=== PATIENT | male | born 1990 | race American Indian/Alaskan Native ===

== ENCOUNTER 2017-06-11 23:52 | Inpatient (IN) | payer MEDICAID ==
[2017-06-11 23:54] VITALS: BMI 22.4
--- NOTE | 2017-06-12 00:46 | C.PDOC ---
History Of Present Illness Patient presents to the ED complaining of swelling and abscess on right arm since 5 days ago s/p injecting heroin. Patient denies chest pain, fever, shortness of breath, nausea, or other complaints. Time Seen by Provider: 06/12/17 00:45 Chief Complaint (Nursing): Abnormal Skin Integrity History Per: Patient History/Exam Limitations: no limitations Onset/Duration Of Symptoms: Days Current Symptoms Are (Timing): Still Present Location Of Injury: Right: Arm Severity: None Past Medical History Reviewed: Historical Data, Nursing Documentation, Vital Signs Vital Signs: Last Vital Signs Temp 103.0 F H 06/12/17 00:15 Pulse 111 H 06/12/17 00:15 Resp 20 06/12/17 00:15 BP 154/72 H 06/12/17 00:15 Pulse Ox 98 06/12/17 02:30 Family History: States: No Known Family Hx - Social History Hx Alcohol Use: No Hx Substance Use: Yes - Immunization History Hx Tetanus Toxoid Vaccination: No Hx Influenza Vaccination: No Hx Pneumococcal Vaccination: No Review Of Systems Constitutional: Negative for: Fever Cardiovascular: Negative for: Chest Pain Respiratory: Negative for: Shortness of Breath Gastrointestinal: Negative for: Nausea, Abdominal Pain Skin: Positive for: Other (swelling and abscess on right forearm) Physical Exam - Physical Exam Appears: No Acute Distress Skin: Warm, Dry Eye(s): bilateral: Normal Inspection Cardiovascular: Rhythm Regular, No Murmur Respiratory: No Rhonchi, No Wheezing Gastrointestinal/Abdominal: No Distention, No Guarding, No Rebound Extremity: Swelling (right forearm), Other (4x6 cm abscess with fluctuance on right arm. track of injection on bilateral arms) Extremity: Bilateral: Normal ROM (fingers, wrist ) Pulses: Left Radial: Normal, Right Radial: Normal Neurological/Psych: Oriented x3, Normal Speech, Normal Sensation ED Course And Treatment - Laboratory Results Result Diagrams: 06/12/17 01:44 06/12/17 01:44 O2 Sat by Pulse Oximetry: 98 (room air) Pulse Ox Interpretation: Normal - Radiology CXR: Interpreted by Me, Viewed By Me CXR Interpretation: No: Infiltrates, Fracture, Pnemothorax - Other Rad foerarm X-Ray: Interpreted by Me, Viewed By Me Interpretation: no fx, large abscess, ? free air Progress Note: Dr goldsmith - decompress now and for the OR in am. residential program worker at bedside Critical Care Time - Critical Care Note Total Time (in mins): 30 Documented critical care: time excludes all time spent performing seperately billable procedures. Medical Decision Making Medical Decision Makin06/12/2017 12:56 Progress Notes: Case discussed with surgical appliances salesperson who is currently seeing patient at bed side of evaluation. Disposition Counseled Patient/Family Regarding: Studies Performed, Diagnosis - Disposition Disposition: HOSPITALIZED Disposition Time: 00:46 Condition: GUARDED - Clinical Impression Clinical Impression: Abscess, Cellulitis, Intravenous drug abuse - Scribe Statement The provider has reviewed the documentation as recorded by the Isie Scribe Attestation: Mary Thorpe MD Scribe Attestation: All medical record entries made by the Scribe were at my direction and personally dictated by me. I have reviewed the chart and agree that the record accurately reflects my personal performance of the history, physical exam, medical decision making, and the department course for this patient. I have also personally directed, reviewed, and agree with the discharge instructions and disposition. Decision To Admit - Pt Status Changed To: Hospital Disposition Of: Inpatient - Admit Certification Admit to Inpatient:: After my assessment, the patient will require hospitalization for at least two midnights. This is because of the severity of symptoms shown, intensity of services needed, and/or the medical risk in this patient being treated as an outpatient. - InPatient: Physician Admission Certification: I certify that this patient requires 2 or more midnights of care for the following reason:: After my assessment, the patient will require hospitalization for at least two midnights. This is because of the severity of symptoms shown, intensity of services needed, and/or the medical risk in this patient being treated as an outpatient. - . Bed Request Type: Regular Admitting Physician: Ady Goldsmith Patient Diagnosis: Abscess, Cellulitis, Intravenous drug abuse
[2017-06-12] MEDS ORDERED: Sodium Chloride 0.9% 1,000 ML IV ONE (00:49)
[2017-06-12 01:38] LABS: URINE BILIRUBIN NEGATIVE (NEGATIVE); URINE BLOOD NEGATIVE (NEGATIVE); URINE CLARITY Clear (Clear); URINE COLOR Yellow (YELLOW); URINE GLUCOSE (UA) NORMAL (Normal); URINE LEUKOCYTE ESTERASE TRACE Leu/uL (Negative); URINE PROTEIN NEGATIVE (NEGATIVE)
[2017-06-12] MEDS ORDERED: Iodixanol 320 mg/ml 150 ml Bottle IV ONE (01:40)
[2017-06-12] MEDS ORDERED: Clindamycin 600mg/50ml NS 600 MG/50 ML BAG IVPB ONE ×2 (01:45→10:40)
[2017-06-12] MEDS ORDERED: Sodium Chloride 0.9% 1,000 ML ONE (01:45)
[2017-06-12 01:47] LABS: BASO # 0.1 K/uL (0.0-0.2); BASO % 0.7 % (0.0-2.0); EOS % 0.1 % (0.0-4.0); HEMOGLOBIN 10.9 g/dL (12.0-18.0); LYMPH # 2.1 K/uL (1.0-4.3); LYMPH % 11.9 % (20.0-40.0); MEAN CELL VOLUME 82.8 fL (80.0-94.0); MEAN CORPUSCULAR HEMOGLOBIN 28.7 pg (27.0-31.0); MEAN CORPUSCULAR HGB CONC 34.7 g/dL (33.0-37.0); MEAN PLATELET VOLUME 8.5 fL (7.2-11.7); MONO # 1.5 K/uL (0.0-0.8); MONO % 8.6 % (0.0-10.0); NEUT % 78.7 % (50.0-75.0); RBC 3.81 Mil/uL (4.40-5.90); RED CELL DISTRIBUTION WIDTH 12.1 % (11.5-14.5); WHITE BLOOD COUNT 17.9 K/uL (4.8-10.8)
[2017-06-12 01:54] LABS: INR 1.3; PROTHROMBIN TIME 15.2 SECONDS (9.7-12.2)
[2017-06-12 02:00] LABS: GFR AFRICAN-AMERICAN > 60; GFR NON-AFRICAN AMERICAN > 60
[2017-06-12] MEDS ORDERED: Lidocaine 2% Inj (20ml) IV ONE (02:00)
[2017-06-12 02:01] LABS: VENOUS BLOOD GAS PCO2 37 mmHg (40-60); VENOUS BLOOD GAS PO2 74 mm/Hg (30-55); VENOUS BLOOD PH 7.48 (7.32-7.43)
[2017-06-12 02:02] LABS: ALB/GLOB RATIO 0.8 (1.0-2.1); ALBUMIN 3.6 g/dL (3.5-5.0); ALT/SGPT 31 U/L (21-72); AST/SGOT 43 U/L (17-59); BLOOD UREA NITROGEN 15 mg/dL (9-20)
--- NOTE | 2017-06-12 02:47 | CT ---
EXAM: CT Right Upper Extremity With Intravenous Contrast, Forearm EXAM DATE/TIME: 06/12/2017 12:51 AM CLINICAL HISTORY: 26 years old, male; Signs and symptoms; Swelling; Arm, lower and elbow; Left; Additional info: Right forearm abscess TECHNIQUE: Axial computed tomography images of the right forearm with intravenous contrast. All CT scans at this facility use one or more dose reduction techniques, viz.: automated exposure control; ma/kV adjustment per patient size (including targeted exams where dose is matched to indication; i.e. head); or iterative reconstruction technique. Coronal and sagittal reformatted images were created and reviewed. CONTRAST: 100 mL of [id number] administered intravenously. COMPARISON: No relevant prior studies available. FINDINGS: BONES/JOINTS: No acute fractures are seen. No evidence of significant elbow joint effusion. No evidence of lytic, destructive bony changes or aggressive periosteal reaction to suggest osteomyelitis. SOFT TISSUES: Best seen on images 138-192 of series 3 there is a large, masslike area in the proximal forearm soft tissues laterally and ventrally, which is highly suspicious for a soft tissue abscess. This measures 8 x 6 x 3.5 cm. It has an internal density most compatible with complex fluid, a thin, enhancing soft tissue rim, a lobulated shape, and a complex, multiseptated appearance internally. It appears localized to the subcutaneous fat superficial to the forearm musculature, and appears to have mass effect on the forearm musculature. It extends to the skin surface. No associated gas. Marked, diffuse swelling and subcutaneous fluid in the forearm soft tissues, highly suspicious for diffuse cellulitis. No evidence of diffuse soft tissue gas. VASCULATURE: No acute abnormality of the major arm vessels identified. LYMPH NODES: Mild lymphadenopathy in the antecubital fossa region, most likely reactive in etiology. IMPRESSION: - FINDINGS SUSPICIOUS FOR A LARGE 8 X 6 CM ABSCESS IN THE PROXIMAL FOREARM SOFT TISSUES. THIS HAS A COMPLEX, MULTISEPTATE APPEARANCE. NO ASSOCIATED GAS. PLEASE SEE ABOVE FOR A FULL DESCRIPTION. - Findings suspicious for associated marked, diffuse cellulitis. - See above for remaining findings.
--- NOTE | 2017-06-12 02:55 | CP.PCM.HP ---
History of Present Illness - History of Present Illness History of Present Illness: General Surgery: Dr Dietz Pt is a 26M with history of IVDA who presents with pain and swelling of the right arm. Pt states arm has been getting progressively worse for past 2 weeks. He is unable to flex or dorsiflex his wrist due to pain. Denies any numbness or paresthesias. Admits to having associated fevers. There has been no drainage from the arm. Pt will not state when most recent heroine use was but states he has been injecting into that arm. PMH: denies PSH: denies Present on Admission - Present on Admission Any Indicators Present on Admission: No Review of Systems - Review of Systems All systems: reviewed and no additional remarkable complaints except (as per hpi ) Past Patient History - Infectious Disease Hx of Infectious Diseases: None - Tetanus Immunizations Tetanus Immunization: Unknown - Past Social History Smoking Status: Heavy Smoker > 10 Cigarettes Daily - PSYCHIATRIC Hx Substance Use: Yes - SURGICAL HISTORY Hx Surgeries: No - ANESTHESIA Hx Anesthesia: No Hx Anesthesia Reactions: No Hx Malignant Hyperthermia: No Meds Allergies/Adverse Reactions: Allergies Allergy/AdvReac Type Severity Reaction Status Date / Time No Known Allergies Allergy Verified 06/12/17 00:18 Physical Exam - Constitutional Appears: Non-toxic, No Acute Distress - ENT Exam ENT Exam: Normal Exam - Respiratory Exam Respiratory Exam: absent: Accessory Muscle Use, Respiratory Distress - Cardiovascular Exam Cardiovascular Exam: Tachycardia, REGULAR RHYTHM - GI/Abdominal Exam GI & Abdominal Exam: Soft. absent: Distended, Firm, Tenderness - Extremities Exam Additional comments: right forearm is distended, firm, significantly erythematous and hot to the touch. very tender to palpation pain with passive dorsiflexion/palmarflexion of the wrist palpable radial pulse adequate cap refill - Neurological Exam Neurological exam: Alert, Oriented x3 - Psychiatric Exam Psychiatric exam: Normal Affect, Normal Mood - Skin Skin Exam: Normal Color, Warm Results - Vital Signs Recent Vital Signs: Last Vital Signs Temp 103.0 F H 06/12/17 00:15 Pulse 111 H 06/12/17 00:15 Resp 20 06/12/17 00:15 BP 154/72 H 06/12/17 00:15 Pulse Ox 98 06/12/17 02:30 - Labs Result Diagrams: 06/12/17 01:44 06/12/17 01:44 Labs: Laboratory Results - last 24 hr 06/12/17 06/12/17 06/12/17 01:29 01:44 01:44 WBC 17.9 H RBC 3.81 L Hgb 10.9 L Hct 31.5 L MCV 82.8 MCH 28.7 MCHC 34.7 RDW 12.1 Plt Count 236 MPV 8.5 Neut % (Auto) 78.7 H Lymph % (Auto) 11.9 L [place] % (Auto) 8.6 Eos % (Auto) 0.1 Baso % (Auto) 0.7 Neut # (Auto) 14.0 H Lymph # (Auto) 2.1 [place] # (Auto) 1.5 H Eos # (Auto) 0.0 Baso # (Auto) 0.1 PT 15.2 H INR 1.3 APTT 35 H pO2 VBG pH VBG pCO2 VBG HCO3 VBG Total CO2 VBG O2 Sat (Calc) VBG Base Excess VBG Potassium Glucose Lactate Sodium Potassium Chloride Carbon Dioxide Anion Gap BUN Creatinine Est GFR ( Amer) Est GFR (Non-Af Amer) Random Glucose Calcium Magnesium Total Bilirubin AST ALT Alkaline Phosphatase Total Protein Albumin Globulin Albumin/Globulin Ratio Venous Blood Potassium Urine Color Yellow Urine Clarity Clear Urine pH 6.0 Ur Specific [place] 1.012 Urine Protein Negative Urine Glucose (UA) Normal Urine Ketones Negative Urine Blood Negative Urine Nitrate Negative Urine Bilirubin Negative Urine Urobilinogen 4.0 Ur Leukocyte Esterase Trace Urine WBC (Auto) 9 H Urine RBC (Auto) < 1 06/12/17 06/12/17 01:44 01:52 WBC RBC Hgb Hct MCV MCH MCHC RDW Plt Count MPV Neut % (Auto) Lymph % (Auto) [place] % (Auto) Eos % (Auto) Baso % (Auto) Neut # (Auto) Lymph # (Auto) [place] # (Auto) Eos # (Auto) Baso # (Auto) PT INR APTT pO2 74 H VBG pH 7.48 H VBG pCO2 37 L VBG HCO3 28.0 VBG Total CO2 28.7 H VBG O2 Sat (Calc) 98.6 H VBG Base Excess 4.0 H VBG Potassium 3.4 L Glucose 98 Lactate 0.7 Sodium 131 L 133.0 Potassium 4.2 Chloride 97 L 100.0 Carbon Dioxide 25 Anion Gap 13 BUN 15 Creatinine 0.7 L Est GFR ( Amer) > 60 Est GFR (Non-Af Amer) > 60 Random Glucose 98 Calcium 8.0 L Magnesium 2.1 Total Bilirubin 2.8 H AST 43 ALT 31 Alkaline Phosphatase 111 Total Protein 7.9 Albumin 3.6 Globulin 4.3 H Albumin/Globulin Ratio 0.8 L Venous Blood Potassium 3.4 L Urine Color Urine Clarity Urine pH Ur Specific [place] Urine Protein Urine Glucose (UA) Urine Ketones Urine Blood Urine Nitrate Urine Bilirubin Urine Urobilinogen Ur Leukocyte Esterase Urine WBC (Auto) Urine RBC (Auto) Assessment & Plan - Assessment and Plan (Free Text) Assessment: 26M with right forearm abscess/cellulitis; possibly developing compartment syndrome Plan: NPO IV abx - vanco & cleocyin IV fluids pt for OR @ 10AM arm was decompressed with 19G needle at bedside - 40cc puss aspirated d/w Dr Mirela Huff, PGY3
[2017-06-12] MEDS ORDERED: Clindamycin 600mg/50ml D5W 600 MG/50 ML VIAL IVPB SCH (03:00)
[2017-06-12] MEDS: Sodium Chloride 0.9% 1,000 ML IV SCH ×4 (03:07→23:49)
[2017-06-12] MEDS ORDERED: Vancomycin 1 gm/NS 200 ml 1 GM/200 ML BAG IVPB SCH (03:30)
[2017-06-12] MEDS: Clindamycin 600mg/50ml NS 600 MG/50 ML BAG IVPB SCH ×3 (03:35→18:32)
--- NOTE | 2017-06-12 09:20 | RAD ---
PROCEDURE: Radiographs of the Right Forearm HISTORY: abscess, swelling COMPARISON: None available. TECHNIQUE: Frontal and lateral views obtained. FINDINGS: BONES: No fracture or destructive lesion. JOINT SPACES: Unremarkable. OTHER FINDINGS: Prominent soft tissue masslike appearance of the proximal/ mid ventral forearm streaky lucencies. IMPRESSION: Prominent soft tissue masslike appearance of the proximal/mid ventral forearm with streaky lucencies and raise the possibility of subcutaneous air. Findings likely represent soft tissue abscess.
--- NOTE | 2017-06-12 09:20 | RAD ---
PROCEDURE: CHEST RADIOGRAPH, 1 VIEW HISTORY: r forearm abscess COMPARISON: None available. FINDINGS: LUNGS: Clear. PLEURA: No pneumothorax or pleural fluid seen. CARDIOVASCULAR: Normal. OSSEOUS STRUCTURES: No significant abnormalities. VISUALIZED UPPER ABDOMEN: Normal. OTHER FINDINGS: None. IMPRESSION: No active disease.
[2017-06-12] MEDS ORDERED: Bupivacaine HCl 0.25% PF (10 ml) Inj ONE (09:50)
[2017-06-12] MEDS ORDERED: Lidocaine/Epinephrine 1% 1:100000 10 ML IJ ONE (09:50)
[2017-06-12] MEDS ORDERED: Propofol 10 mg/ml Inj (20 ML) ONE ×2 (10:05→10:35)
[2017-06-12] MEDS ORDERED: Midazolam 2 MG/2 ML VIAL ONE (10:05)
[2017-06-12] MEDS ORDERED: Lactated Ringer's 1,000 ML IV ONE (10:47)
[2017-06-12] MEDS: HYDROmorphone 0.5 mg/0.5 ml ISec IVP PRN ×4 (10:58→11:49)
--- NOTE | 2017-06-12 11:48 | PCM.SURG1 ---
Surgeon's Initial Post Op Note - Surgeon's Notes Surgeon: Dr. Dietz Trommel Tender: Dr. Valenzuela PGY-3 Type of Anesthesia: General Endo Anesthesia Administered By: Dr. Scott Pre-Operative Diagnosis: Right forearm abscess Operative Findings: See operative report Post-Operative Diagnosis: Same Operation Performed: Right forearm abscess Incision & Drainage with fasciotomy Specimen/Specimens Removed: none Estimated Blood Loss: EBL {In ML}: 50 Blood Products Given: N/A Drains Used: No Drains Post-Op Condition: Good Date of Surgery/Procedure: 06/12/17 Time of Surgery/Procedure: 11:15
[2017-06-12] MEDS: Vancomycin 1 gm/NS 200 ml 1 GM/200 ML BAG IVPB SCH ×2 (13:32→21:02)
[2017-06-12 16:48] VITALS: RESP 20
--- NOTE | 2017-06-12 22:09 | OP ---
PROCEDURE DATE: 06/12/2017 PREOPERATIVE DIAGNOSIS: Large abscess, right forearm; and possible compartment syndrome. PROCEDURE PERFORMED: Incision and drainage of multiple abscesses of the right arm and fasciotomy. FINDINGS: The right arm is characterized by multiple keloid scars. There are some areas of swelling, mostly on the anterior surface. This is fluctuant in the middle and several other areas of fluctuations were noted distal to the main one, which measures approximately 6 x 6 cm in size. The upper forearm was very stiff and tense, but the radial pulse is very palpable. DESCRIPTION OF PROCEDURE: Under general anesthesia, the patient was prepared and draped in a sterile fashion. About a 4-to 5-inch incision was made over the most prominent portion of this mass. A large amount of purulent material was extracted, which was suctioned out and cultured. The other proximate areas were also approached and the pus drained from all these compartments. The fascia was then opened to allow for expansion of the muscles underneath it. This was accomplished without any problem except for the bleeding that was controlled with electrocautery. A small other area of fluctuance in the inferior portion of the operative site was also opened and packed with iodoform gauze. The rest of the wound was then irrigated and packed with iodoform gauze, left open and dressed with ____ 4 x 4s and abdominal pads. Estimated blood loss probably about 50 mL. The patient tolerated the procedure well, and left the operating room in good condition. Ady Dietz MD
[2017-06-13] MEDS: Clindamycin 600mg/50ml NS 600 MG/50 ML BAG IVPB SCH ×3 (02:48→18:28)
[2017-06-13 08:39] LABS: BASO # 0.1 K/uL (0.0-0.2); BASO % 0.7 % (0.0-2.0); EOS % 0.5 % (0.0-4.0); HEMOGLOBIN 10.8 g/dL (12.0-18.0); LYMPH # 0.9 K/uL (1.0-4.3); LYMPH % 11.5 % (20.0-40.0); MEAN CELL VOLUME 83.5 fL (80.0-94.0); MEAN CORPUSCULAR HEMOGLOBIN 28.6 pg (27.0-31.0); MEAN CORPUSCULAR HGB CONC 34.3 g/dL (33.0-37.0); MEAN PLATELET VOLUME 8.5 fL (7.2-11.7); MONO # 0.3 K/uL (0.0-0.8); MONO % 4.3 % (0.0-10.0); NEUT # 6.6 K/uL (1.8-7.0); RBC 3.79 Mil/uL (4.40-5.90); RED CELL DISTRIBUTION WIDTH 12.2 % (11.5-14.5); WHITE BLOOD COUNT 7.9 K/uL (4.8-10.8)
[2017-06-13 08:57] LABS: ALB/GLOB RATIO 0.8 (1.0-2.1); ALT/SGPT 39 U/L (21-72); AST/SGOT 39 U/L (17-59); BLOOD UREA NITROGEN 11 mg/dL (9-20); CALCIUM 8.2 mg/dl (8.6-10.4); GFR AFRICAN-AMERICAN > 60; GFR NON-AFRICAN AMERICAN > 60
[2017-06-13] MEDS: Vancomycin 1 gm/NS 200 ml 1 GM/200 ML BAG IVPB SCH ×2 (09:35→21:43)
[2017-06-13] MEDS: Sodium Chloride 0.9% 1,000 ML IV SCH ×2 (13:47→18:31)
--- NOTE | 2017-06-13 14:40 | CP.PCM.CON ---
History of Present Illness - History of Present Illness History of Present Illness: dictated Past Patient History - Infectious Disease Hx of Infectious Diseases: None - Tetanus Immunizations Tetanus Immunization: Unknown - Past Social History Smoking Status: Heavy Smoker > 10 Cigarettes Daily - MUSCULOSKELETAL/RHEUMATOLOGICAL Hx Falls: No - PSYCHIATRIC Hx Substance Use: Yes - SURGICAL HISTORY Hx Surgeries: No - ANESTHESIA Hx Anesthesia: No Hx Anesthesia Reactions: No Hx Malignant Hyperthermia: No Meds Allergies/Adverse Reactions: Allergies Allergy/AdvReac Type Severity Reaction Status Date / Time No Known Allergies Allergy Verified 06/12/17 00:18 - Medications Medications: Current Medications Sodium Chloride (Sodium Chloride 0.9%) 1,000 mls @ 100 mls/hr IV .Q10H [facility] Last Admin: 06/13/17 13:47 Dose: 100 mls/hr Clindamycin Phosphate (Cleocin In Normal Saline) 600 mg in 50 mls @ 102 mls/hr IVPB Q8H [facility] Last Admin: 06/13/17 11:15 Dose: 102 mls/hr Vancomycin/Sodium Chloride (Vancomycin 1 Gm/Ns 200 Ml) 1 gm in 200 mls @ 133.333 mls/hr IVPB Q12 [facility] Stop: 06/17/17 14:01 Last Admin: 06/13/17 09:35 Dose: 133.333 mls/hr Gentamicin Sulfate 80 mg/ (Sodium Chloride) 102 mls @ 100 mls/hr IVPB Q8H [facility] Last Admin: 06/13/17 14:09 Dose: 100 mls/hr Morphine Sulfate (Morphine) 4 mg IVP Q4 PRN PRN Reason: Pain, moderate (4-7) Last Admin: 06/13/17 10:27 Dose: 4 mg Results - Vital Signs Recent Vital Signs: Last Vital Signs Temp 98.1 F 06/13/17 08:38 Pulse 67 06/13/17 08:38 Resp 20 06/13/17 08:38 BP 132/74 06/13/17 08:38 Pulse Ox 99 06/13/17 08:38 - Labs Result Diagrams: 06/13/17 08:24 06/13/17 08:24 Labs: Laboratory Results - last 24 hr 06/13/17 06/13/17 08:24 08:24 WBC 7.9 D RBC 3.79 L Hgb 10.8 L Hct 31.7 L MCV 83.5 MCH 28.6 MCHC 34.3 RDW 12.2 Plt Count 240 MPV 8.5 Neut % (Auto) 83.0 H Lymph % (Auto) 11.5 L [place] % (Auto) 4.3 Eos % (Auto) 0.5 Baso % (Auto) 0.7 Neut # (Auto) 6.6 Lymph # (Auto) 0.9 L [place] # (Auto) 0.3 Eos # (Auto) 0.0 Baso # (Auto) 0.1 Sodium 143 Potassium 3.8 Chloride 109 H Carbon Dioxide 23 Anion Gap 15 BUN 11 Creatinine 0.6 L Est GFR ( Amer) > 60 Est GFR (Non-Af Amer) > 60 Random Glucose 141 H Calcium 8.2 L Total Bilirubin 2.0 H AST 39 ALT 39 Alkaline Phosphatase 112 Total Protein 6.9 Albumin 3.0 L Globulin 3.9 Albumin/Globulin Ratio 0.8 L
--- NOTE | 2017-06-13 14:49 | CP.PCM.PN ---
Subjective - Date & Time of Evaluation Date of Evaluation: 06/13/17 Time of Evaluation: 07:15 - Subjective Subjective: Surgery progress note. Dr. Dietz Pt seen and examined at bedside. Right forearm dressing replaced. Still reports pain at the surgical site. No new complaints. no F/C. no CP/SOB. Tolerating diet. Objective - Vital Signs/Intake and Output Vital Signs (last 24 hours): Temp Pulse Resp BP Pulse Ox 98.1 F 67 20 132/74 99 06/13/17 08:38 06/13/17 08:38 06/13/17 08:38 06/13/17 08:38 06/13/17 08:38 Intake and Output: 06/13/17 06/13/17 06:59 18:59 Intake Total 1000 1200 Output Total 1500 1400 Balance -500 -200 - Medications Medications: Current Medications Sodium Chloride (Sodium Chloride 0.9%) 1,000 mls @ 100 mls/hr IV .Q10H [facility] Last Admin: 06/13/17 13:47 Dose: 100 mls/hr Clindamycin Phosphate (Cleocin In Normal Saline) 600 mg in 50 mls @ 102 mls/hr IVPB Q8H [facility] Last Admin: 06/13/17 11:15 Dose: 102 mls/hr Vancomycin/Sodium Chloride (Vancomycin 1 Gm/Ns 200 Ml) 1 gm in 200 mls @ 133.333 mls/hr IVPB Q12 [facility] Stop: 06/17/17 14:01 Last Admin: 06/13/17 09:35 Dose: 133.333 mls/hr Gentamicin Sulfate 80 mg/ (Sodium Chloride) 102 mls @ 100 mls/hr IVPB Q8H [facility] Last Admin: 06/13/17 14:09 Dose: 100 mls/hr Morphine Sulfate (Morphine) 4 mg IVP Q4 PRN PRN Reason: Pain, moderate (4-7) Last Admin: 06/13/17 14:41 Dose: 4 mg - Labs Labs: 06/13/17 08:24 06/13/17 08:24 PT 15.2 SECONDS (9.7-12.2) H 06/12/17 01:44 INR 1.3 06/12/17 01:44 APTT 35 SECONDS (21-34) H 06/12/17 01:44 - Constitutional Appears: Non-toxic, No Acute Distress - Head Exam Head Exam: ATRAUMATIC, NORMAL INSPECTION, NORMOCEPHALIC - Eye Exam Eye Exam: EOMI, Normal appearance - ENT Exam ENT Exam: Mucous Membranes Moist - Respiratory Exam Respiratory Exam: NORMAL BREATHING PATTERN. absent: Accessory Muscle Use, Wheezes - Cardiovascular Exam Cardiovascular Exam: absent: JVD - GI/Abdominal Exam GI & Abdominal Exam: Soft. absent: Guarding, Rigid, Tenderness - Extremities Exam Additional comments: Right forearm: dressing replaced with wet-to-dry gauze and kerlex. Distal pulses intact. - Neurological Exam Neurological Exam: Alert, Awake, Oriented x3 - Psychiatric Exam Psychiatric exam: Normal Affect, Normal Mood - Skin Skin Exam: Dry, Normal Color, Warm Assessment and Plan - Assessment and Plan (Free Text) Assessment: 26yo M s/p Right Forearm Abscess I&D with fasciotomy Plan: - Daily packing changes (wet-to-dry) - f/u ECHO - Continue IV abx - Pain meds: transition to PO Further recs as per Dr. Mirela Robb PGY1 surgery pager: [phone]
[2017-06-13] MEDS: Oxycodone/Acetaminophen 5/325 mg Tab PO PRN (17:44)
--- NOTE | 2017-06-13 20:54 | CARD ---
APPROVED REPORT EXAM: Two-dimensional and M-mode echocardiogram with Doppler and color Doppler. Other Information Quality : GoodRhythm : INDICATION R/O VEGETATION, IV DRUG ABUSE 2D DIMENSIONS IVSd0.9 (0.7-1.1cm)LVDd5.5 (3.9-5.9cm) PWd1.2 (0.7-1.1cm)LVDs4.1 (2.5-4.0cm) FS (%) 25.3 %LVEF (%)49.3 (>50%) M-Mode DIMENSIONS RVDd1.76 (2.1-3.2cm)Left Atrium (MM)3.55 (2.5-4.0cm) IVSd1.30 (0.7-1.1cm)Aortic Root3.25 (2.2-3.7cm) LVDd6.02 (4.0-5.6cm)Aortic Cusp Exc.2.34 (1.5-2.0cm) PWd1.24 (0.7-1.1cm)FS (%) 32 % LVDs4.10 (2.0-3.8cm) Mitral Valve MV E Ro[place]79.7cm/sMV A Dauoxeuz88.0cm/sE/A ratio1.7 TDI E/Lateral E'0.0E/Medial E'0.0 Tricuspid Valve TR Peak [id number]/sTR Peak Gr.[id number] LEFT VENTRICLE The Left Ventricle is borderline dilated. There is borderline concentric left ventricular hypertrophy. Left ventricle systolic function is normal. The Ejection Fraction is 50%. There is normal LV segmental wall motion. The left ventricular diastolic function is normal. RIGHT VENTRICLE The right ventricle is normal size. There is normal right ventricular wall thickness. The right ventricular systolic function is normal. ATRIA The left atrium size is normal. The right atrium size is normal. The interatrial septum is intact with no evidence for an atrial septal defect. AORTIC VALVE The aortic valve is normal in structure. No aortic regurgitation is present. There is no aortic valvular stenosis. There is no aortic valvular vegetation. MITRAL VALVE The mitral valve is normal in structure. There is no evidence of mitral valve prolapse. There is no mitral valve stenosis. Mitral regurgitation is mild. TRICUSPID VALVE The tricuspid valve is normal in structure. There is mild tricuspid regurgitation. Right ventricular systolic pressure is estimated at 30-40 mmHg. There is mild pulmonary hypertension. PULMONIC VALVE The pulmonic valve is not well visualized. There is mild pulmonic valvular regurgitation. GREAT VESSELS The aortic root is normal in size. PERICARDIAL EFFUSION There is no significant pericardial effusion. <Conclusion> Left ventricle systolic function is normal. The Ejection Fraction is 50%. There is borderline concentric left ventricular hypertrophy. There is no aortic valvular vegetation. Mitral regurgitation is mild. There is mild tricuspid regurgitation. There is mild pulmonary hypertension. There is mild pulmonic valvular regurgitation.
[2017-06-13] MEDS: Meropenem 1 GM in Sodium Chloride 0.9% 100 ML IVPB SCH (21:42)
[2017-06-14] MEDS: Clindamycin 600mg/50ml NS 600 MG/50 ML BAG IVPB SCH ×3 (03:17→20:08)
[2017-06-14] MEDS: Sodium Chloride 0.9% 1,000 ML IV SCH ×4 (03:18→21:50)
[2017-06-14] MEDS: Meropenem 1 GM in Sodium Chloride 0.9% 100 ML IVPB SCH ×3 (06:25→21:50)
[2017-06-14] MEDS: Morphine 4 MG/ML VIAL IVP PRN ×4 (07:04→20:06)
--- NOTE | 2017-06-14 07:10 | CON ---
DATE: CONSULT REQUESTED BY: Dr. Dietz. HISTORY OF PRESENT ILLNESS: This patient is a 26-year-old male. He has a history of IV drug abuse. He presented with pain and swelling on the right arm and it was progressively getting worse for 2 weeks. He did say he injected heroin and he did that recently, and he developed an abscess and drainage. He has been doing drugs for last 3 years. Denies any history of endocarditis or blood infection. He is feeling a lot of pain in his right arm and he says the pain medications are not helping him. He is awake, alert, otherwise. Denies any other symptoms. He is not allergic to any medicine. He gives a history of smoking. No drinking. He smokes cigarettes, he says. He denies any drinking. He denies any other illnesses. allergic NKA PAST MEDICAL HISTORY: Unremarkable. SOCIAL HISTORY: He is a heavy smoker, more than 10 cigarettes per day, has a history of substance abuse. No previous surgeries, no anesthesia in the past, and he is on vancomycin, clindamycin, and gentamicin when I saw him but when I am dictating the note, the nurse called me that one of his blood culture has gram-negative rods. Hence, I have added meropenem and continued vancomycin, clindamycin, and meropenem at this time, and we will have to repeat the cultures and once the cultures are negative, then we will try to see which antibiotic to keep at that time. PHYSICAL EXAMINATION: VITAL SIGNS: When he came in, his temp was 103, this is yesterday; and his white count was 17.9. He underwent an I and D surgery. He had an I and D done this morning, and on examination now, I find his temperature is 98.4, pulse 70, blood pressure 132/74, respirations are 20. HEENT: Head is atraumatic, normocephalic. Pupils are reacting to light. Eye movements are unremarkable. NECK: Supple. JVP is large. LUNGS: Clear. No crackles or rales present. HEART: S1 and S2, regular. ABDOMEN: Soft, nontender. No guarding, no rigidity present. EXTREMITIES: Have no edema, clubbing, or cyanosis. Fingers are swollen and right forearm has a dressing at this time which is from the OR and has some blood seen on it. LABORATORY DATA: Labs are noted. Labs show white count today is 7.9, he came with 17.9; hemoglobin 10.8; hematocrit 31.7; platelet count is 240. Final ID and sensitivity of organisms are pending at this time. We will continue present antibiotics. BUN is 11, creatinine is 0.6, and I ordered an echocardiogram to rule out any vegetation as he has been shooting, and he did have an echo done, the reading of which is pending at this time. They also did upper extremity CT when he came in which showed suspicious for a large 8 x 6 cm abscess in the proximal forearm soft tissue. This has complex multisepted appearance, no associated gas, associated with mild diffuse cellulitis. The surgical procedure done is I and D, fasciotomy, right forearm. IMPRESSION: At this time, my impression is that this patient has gram-negative as well as gram positive septicemia, most likely due to the heroin injection in the right forearm with septiciemia with cellulitis and I will suggest to rule out endocarditis. We will continue present antibiotics. He is on vancomycin, clindamycin, and meropenem at this time. We will repeat the cultures in the a.m., and we will follow. The patient remains acutely ill, needs to get the ID and sensitivity of both these organisms growing in the blood and also to follow the actual site of infection and check echocardiogram report. We will order ESR and CRP. Chloé Ford MD MTDRadha
[2017-06-14 07:27] LABS: BASO # 0.1 K/uL (0.0-0.2); BASO % 1.1 % (0.0-2.0); EOS # 0.2 K/uL (0.0-0.7); EOS % 2.7 % (0.0-4.0); HEMOGLOBIN 10.3 g/dL (12.0-18.0); LYMPH # 1.2 K/uL (1.0-4.3); LYMPH % 18.5 % (20.0-40.0); MEAN CELL VOLUME 83.5 fL (80.0-94.0); MEAN CORPUSCULAR HEMOGLOBIN 28.9 pg (27.0-31.0); MEAN CORPUSCULAR HGB CONC 34.6 g/dL (33.0-37.0); MEAN PLATELET VOLUME 8.7 fL (7.2-11.7); MONO # 0.4 K/uL (0.0-0.8); MONO % 6.2 % (0.0-10.0); NEUT # 4.6 K/uL (1.8-7.0); NEUT % 71.5 % (50.0-75.0); NRBC % 0.1 % (0.0-2.0); RBC 3.56 Mil/uL (4.40-5.90); RED CELL DISTRIBUTION WIDTH 12.4 % (11.5-14.5); WHITE BLOOD COUNT 6.4 K/uL (4.8-10.8)
[2017-06-14 07:55] LABS: ALB/GLOB RATIO 0.8 (1.0-2.1); ALT/SGPT 31 U/L (21-72); AST/SGOT 29 U/L (17-59); BLOOD UREA NITROGEN 9 mg/dL (9-20); CALCIUM 8.2 mg/dl (8.6-10.4); GFR AFRICAN-AMERICAN > 60; GFR NON-AFRICAN AMERICAN > 60
[2017-06-14] MEDS: Oxycodone/Acetaminophen 5/325 mg Tab PO PRN ×2 (08:16→21:52)
[2017-06-14] MEDS: Vancomycin 1 gm/NS 200 ml 1 GM/200 ML BAG IVPB SCH ×2 (10:04→21:49)
--- NOTE | 2017-06-14 11:34 | CP.PCM.PN ---
Subjective - Date & Time of Evaluation Date of Evaluation: 06/14/17 Time of Evaluation: 08:00 - Subjective Subjective: Surgery: Dr. Dietz Pt seen and examined. No acute overnight events. Doing well, and doesn't have any complaints. Denies N/V, F/C. Objective - Vital Signs/Intake and Output Vital Signs (last 24 hours): Temp Pulse Resp BP Pulse Ox 9802 F H 72 20 145/75 97 06/14/17 08:45 06/14/17 08:45 06/14/17 08:45 06/14/17 08:45 06/14/17 08:45 Intake and Output: 06/14/17 06/14/17 06:59 18:59 Intake Total 1350 Output Total 1200 Balance 150 - Medications Medications: Current Medications Sodium Chloride (Sodium Chloride 0.9%) 1,000 mls @ 100 mls/hr IV .Q10H AURELIANO Last Admin: 06/14/17 06:24 Dose: Not Given Clindamycin Phosphate (Cleocin In Normal Saline) 600 mg in 50 mls @ 102 mls/hr IVPB Q8H AURELIANO Last Admin: 06/14/17 03:17 Dose: 102 mls/hr Vancomycin/Sodium Chloride (Vancomycin 1 Gm/Ns 200 Ml) 1 gm in 200 mls @ 133.333 mls/hr IVPB Q12 AURELIANO Stop: 06/17/17 14:01 Last Admin: 06/14/17 10:04 Dose: 133.333 mls/hr Meropenem 1 gm/ Sodium (Chloride) 100 mls @ 100 mls/hr IVPB Q8 AURELIANO PRN Reason: Protocol Last Admin: 06/14/17 06:25 Dose: 100 mls/hr Morphine Sulfate (Morphine) 4 mg IVP Q4 PRN PRN Reason: Pain, moderate (4-7) Last Admin: 06/14/17 07:04 Dose: 4 mg Oxycodone/Acetaminophen (Percocet 5/325 Mg Tab) 1 tab PO Q4H PRN PRN Reason: Pain, moderate (4-7) Stop: 06/16/17 15:01 Last Admin: 06/14/17 08:16 Dose: 1 tab - Labs Labs: 06/14/17 07:19 06/14/17 07:19 PT 15.2 SECONDS (9.7-12.2) H 06/12/17 01:44 INR 1.3 06/12/17 01:44 APTT 35 SECONDS (21-34) H 06/12/17 01:44 - Constitutional Appears: Well, No Acute Distress - Head Exam Head Exam: NORMOCEPHALIC - ENT Exam ENT Exam: Mucous Membranes Moist - Respiratory Exam Respiratory Exam: NORMAL BREATHING PATTERN - GI/Abdominal Exam GI & Abdominal Exam: Soft. absent: Tenderness - Extremities Exam Additional comments: R arm s/p I&D and fasciotomy; POD#2 - Neurological Exam Neurological Exam: Alert, Awake, Oriented x3 - Skin Skin Exam: Dry, Warm Assessment and Plan - Assessment and Plan (Free Text) Assessment: 26M with R arm abscess s/p I&D & fasciotomy; POD#2 Plan: - cont packing changes daily - cont IV ABX - ID on board; f/u recs - d/w Dr. Mirela Valenzuela, PGY-3
--- NOTE | 2017-06-14 21:58 | CP.PCM.PN ---
Subjective - Date & Time of Evaluation Date of Evaluation: 06/14/17 Time of Evaluation: 01:30 - Subjective Subjective: dictated Objective - Vital Signs/Intake and Output Vital Signs (last 24 hours): Temp Pulse Resp BP Pulse Ox 98.3 F 67 20 132/72 100 06/14/17 15:10 06/14/17 15:10 06/14/17 15:10 06/14/17 15:10 06/14/17 15:10 Intake and Output: 06/14/17 06/15/17 18:59 06:59 Intake Total 900 Output Total 300 Balance 600 - Medications Medications: Current Medications Sodium Chloride (Sodium Chloride 0.9%) 1,000 mls @ 100 mls/hr IV .Q10H AURELIANO Last Admin: 06/14/17 21:50 Dose: 100 mls/hr Clindamycin Phosphate (Cleocin In Normal Saline) 600 mg in 50 mls @ 102 mls/hr IVPB Q8H AURELIANO Last Admin: 06/14/17 20:08 Dose: 102 mls/hr Vancomycin/Sodium Chloride (Vancomycin 1 Gm/Ns 200 Ml) 1 gm in 200 mls @ 133.333 mls/hr IVPB Q12 AURELIANO Stop: 06/17/17 14:01 Last Admin: 06/14/17 21:49 Dose: 133.333 mls/hr Meropenem 1 gm/ Sodium (Chloride) 100 mls @ 100 mls/hr IVPB Q8 AURELIANO PRN Reason: Protocol Last Admin: 06/14/17 21:50 Dose: 100 mls/hr Morphine Sulfate (Morphine) 4 mg IVP Q4 PRN PRN Reason: Pain, moderate (4-7) Last Admin: 06/14/17 20:06 Dose: 4 mg Oxycodone/Acetaminophen (Percocet 5/325 Mg Tab) 1 tab PO Q4H PRN PRN Reason: Pain, moderate (4-7) Stop: 06/16/17 15:01 Last Admin: 06/14/17 21:52 Dose: 1 tab - Labs Labs: 06/14/17 07:19 06/14/17 07:19 PT 15.2 SECONDS (9.7-12.2) H 06/12/17 01:44 INR 1.3 06/12/17 01:44 APTT 35 SECONDS (21-34) H 06/12/17 01:44
--- NOTE | 2017-06-15 01:09 | PN ---
DATE: SUBJECTIVE: The patient was feeling fairly better, but he said he is not completely better. He was still having pain. PHYSICAL EXAMINATION: VITAL SIGNS: Temperature was 98.3, pulse 67, blood pressure 132/72, respirations 20. HEENT: Head is atraumatic, normocephalic. NECK: Supple. LUNGS: Clear. HEART: S1 and S2 are regular. ABDOMEN: Soft, nontender. No guarding. No rigidity present. EXTREMITIES: Right forearm remains with the swelling as well as the dressing. He has had I and D yesterday. Left arm is unremarkable. No edema. LABORATORY DATA: White count is 6.4, hemoglobin 10.3, hematocrit 29.7, platelet count of 267. Blood culture has gram positive and gram negative, gram negative has yet not been identified, but blood wound cultures Staph aureus is there, and sensitive Staph and the other one is Strep mitis. Strep mitis was in the blood too. So the wounds has Staph aureus and the blood has Strep mitis, and Strep mitis is vancomycin sensitive and penicillin sensitive. He has gram-negative rods. So we will wait for further ID and sensitivity comes by, then we will try to change the antibiotics according to the culture reports. At this time, to continue the same. The patient did come in with cellulitis and abscess. He is a heroin abuser and rule out endocarditis. Echo report is pending at this time and further ID and sensitivity is pending. Chloé Ford MD
[2017-06-15] MEDS: Sodium Chloride 0.9% 1,000 ML IV SCH (01:52)
[2017-06-15] MEDS: Clindamycin 600mg/50ml NS 600 MG/50 ML BAG IVPB SCH ×2 (03:25→09:30)
[2017-06-15] MEDS: Morphine 4 MG/ML VIAL IVP PRN ×2 (04:05)
[2017-06-15] MEDS: Meropenem 1 GM in Sodium Chloride 0.9% 100 ML IVPB SCH (05:00)
[2017-06-15 07:43] LABS: BASO # 0.1 K/uL (0.0-0.2); EOS # 0.1 K/uL (0.0-0.7); EOS % 2.1 % (0.0-4.0); LYMPH # 1.5 K/uL (1.0-4.3); LYMPH % 22.2 % (20.0-40.0); MEAN CELL VOLUME 83.8 fL (80.0-94.0); MEAN CORPUSCULAR HEMOGLOBIN 28.6 pg (27.0-31.0); MEAN CORPUSCULAR HGB CONC 34.2 g/dL (33.0-37.0); MEAN PLATELET VOLUME 8.7 fL (7.2-11.7); MONO # 0.5 K/uL (0.0-0.8); MONO % 8.2 % (0.0-10.0); NEUT # 4.4 K/uL (1.8-7.0); NEUT % 66.5 % (50.0-75.0); NRBC % 0.1 % (0.0-2.0); RBC 3.86 Mil/uL (4.40-5.90); RED CELL DISTRIBUTION WIDTH 12.6 % (11.5-14.5); WHITE BLOOD COUNT 6.6 K/uL (4.8-10.8)
[2017-06-15 09:24] LABS: ALB/GLOB RATIO 0.8 (1.0-2.1); ALBUMIN 3.1 g/dL (3.5-5.0); ALT/SGPT 38 U/L (21-72); AST/SGOT 34 U/L (17-59); BLOOD UREA NITROGEN 8 mg/dL (9-20); CALCIUM 8.5 mg/dl (8.6-10.4); GFR AFRICAN-AMERICAN > 60; GFR NON-AFRICAN AMERICAN > 60
[2017-06-15] MEDS: Vancomycin 1 gm/NS 200 ml 1 GM/200 ML BAG IVPB SCH (10:15)
[2017-06-15] MEDS: Sulfamethoxazole/Trimethoprim 160 MG in Dextrose 5% In Water 250 ML IVPB SCH (11:57)
--- NOTE | 2017-06-15 13:13 | CP.PCM.PN ---
Subjective - Date & Time of Evaluation Date of Evaluation: 06/15/17 Time of Evaluation: 13:11 - Subjective Subjective: General Surgery: Dr Dietz Pt S&E. JAZMIN. Denies n/v, f/c, sob or chest pain. Complaining pain medication is not appropriate relieving his pain. Dressing changed at bedside. Tolerated well Objective - Vital Signs/Intake and Output Vital Signs (last 24 hours): Temp Pulse Resp BP Pulse Ox 98.4 F 61 20 122/79 99 06/15/17 08:33 06/15/17 12:40 06/15/17 08:33 06/15/17 12:40 06/15/17 08:33 Intake and Output: 06/15/17 06/15/17 06:59 18:59 Intake Total 1500 Output Total 2150 Balance -650 - Medications Medications: Current Medications Hydromorphone HCl (Dilaudid) 0.5 mg IVP Q4H PRN PRN Reason: Pain, severe (8-10) Last Admin: 06/15/17 12:41 Dose: 0.5 mg Trimethoprim/Sulfamethoxazole (160 mg/ Dextrose) 250 mls @ 166.667 mls/hr IVPB Q12H AURELIANO Last Admin: 06/15/17 11:57 Dose: 166.667 mls/hr Vancomycin HCl 1,400 mg/ (Sodium Chloride) 500 mls @ 250 mls/hr IVPB Q12H AURELIANO PRN Reason: Protocol Oxycodone/Acetaminophen (Percocet 5/325 Mg Tab) 2 tab PO Q4H PRN PRN Reason: Pain, moderate (4-7) Stop: 06/16/17 15:01 - Labs Labs: 06/15/17 07:17 06/15/17 07:17 PT 15.2 SECONDS (9.7-12.2) H 06/12/17 01:44 INR 1.3 06/12/17 01:44 APTT 35 SECONDS (21-34) H 06/12/17 01:44 - Constitutional Appears: Non-toxic, In Acute Distress - Head Exam Head Exam: NORMOCEPHALIC - Eye Exam Eye Exam: Normal appearance - Respiratory Exam Respiratory Exam: Clear to Ausculation Bilateral, NORMAL BREATHING PATTERN. absent: Chest Wall Tenderness, Rales, Rhonchi, Wheezes - Cardiovascular Exam Cardiovascular Exam: REGULAR RHYTHM, +S1, +S2. absent: Tachycardia - GI/Abdominal Exam GI & Abdominal Exam: Soft. absent: Distended, Firm, Guarding, Tenderness - Extremities Exam Additional comments: Right forearm swelling decreased wound clean and intact - no further signs of infection or bleeding - Neurological Exam Neurological Exam: Alert, Awake - Psychiatric Exam Psychiatric exam: Normal Affect, Normal Mood - Skin Skin Exam: Dry, Warm Assessment and Plan - Assessment and Plan (Free Text) Assessment: 26M with septicemia and RUE abscess s/p I&D w/ fasciotomy Plan: will continue daily wet-dry dressings abx recs per ID - pt will likely remain in house for IV abx will d/w dr Mirela mead, PGY3
[2017-06-15] MEDS: Oxycodone/Acetaminophen 5/325 mg Tab PO PRN (20:04)
[2017-06-16] MEDS: Sulfamethoxazole/Trimethoprim 160 MG in Dextrose 5% In Water 250 ML IVPB SCH ×2 (00:49→13:12)
[2017-06-16 07:09] LABS: BASO # 0.1 K/uL (0.0-0.2); BASO % 1.1 % (0.0-2.0); EOS # 0.3 K/uL (0.0-0.7); EOS % 3.7 % (0.0-4.0); HEMOGLOBIN 11.3 g/dL (12.0-18.0); LYMPH # 1.9 K/uL (1.0-4.3); LYMPH % 22.9 % (20.0-40.0); MEAN CELL VOLUME 84.5 fL (80.0-94.0); MEAN CORPUSCULAR HEMOGLOBIN 28.9 pg (27.0-31.0); MEAN CORPUSCULAR HGB CONC 34.2 g/dL (33.0-37.0); MEAN PLATELET VOLUME 8.7 fL (7.2-11.7); MONO # 0.8 K/uL (0.0-0.8); MONO % 9.4 % (0.0-10.0); NEUT # 5.3 K/uL (1.8-7.0); NEUT % 62.9 % (50.0-75.0); RBC 3.89 Mil/uL (4.40-5.90); RED CELL DISTRIBUTION WIDTH 12.6 % (11.5-14.5); WHITE BLOOD COUNT 8.5 K/uL (4.8-10.8)
[2017-06-16] MEDS: Oxycodone/Acetaminophen 5/325 mg Tab PO PRN (07:28)
[2017-06-16 07:41] LABS: ALB/GLOB RATIO 0.8 (1.0-2.1); ALBUMIN 3.1 g/dL (3.5-5.0); ALT/SGPT 49 U/L (21-72); AST/SGOT 46 U/L (17-59); BLOOD UREA NITROGEN 10 mg/dL (9-20); CALCIUM 8.6 mg/dl (8.6-10.4); GFR AFRICAN-AMERICAN > 60; GFR NON-AFRICAN AMERICAN > 60
--- NOTE | 2017-06-16 08:34 | CP.PCM.PN ---
Subjective - Date & Time of Evaluation Date of Evaluation: 06/16/17 Time of Evaluation: 08:32 - Subjective Subjective: General surgery: Dr Dietz Pt S&E. JAZMIN. Resting comfortably, though he says the pain medicine is still not strong enough after increasing dosing yesterday. Dressing changed at bedside. Pt tolerated well,. denies n/v, f/c. Objective - Vital Signs/Intake and Output Vital Signs (last 24 hours): Temp Pulse Resp BP Pulse Ox 98.2 F 57 L 20 118/72 95 06/15/17 23:40 06/15/17 23:40 06/15/17 23:40 06/15/17 23:40 06/15/17 23:40 Intake and Output: 06/16/17 06/16/17 06:59 18:59 Intake Total 1380 Output Total 1800 Balance -420 - Medications Medications: Current Medications Hydromorphone HCl (Dilaudid) 0.5 mg IVP Q4H PRN PRN Reason: Pain, severe (8-10) Last Admin: 06/16/17 05:16 Dose: 0.5 mg Trimethoprim/Sulfamethoxazole (160 mg/ Dextrose) 250 mls @ 166.667 mls/hr IVPB Q12H AURELIANO Last Admin: 06/16/17 00:49 Dose: 166.667 mls/hr Vancomycin HCl 1,400 mg/ (Sodium Chloride) 500 mls @ 250 mls/hr IVPB Q12H AURELIANO PRN Reason: Protocol Last Admin: 06/15/17 21:09 Dose: 250 mls/hr Oxycodone/Acetaminophen (Percocet 5/325 Mg Tab) 2 tab PO Q4H PRN PRN Reason: Pain, moderate (4-7) Stop: 06/16/17 15:01 Last Admin: 06/16/17 07:28 Dose: 2 tab - Labs Labs: 06/16/17 06:58 06/16/17 06:58 PT 15.2 SECONDS (9.7-12.2) H 06/12/17 01:44 INR 1.3 06/12/17 01:44 APTT 35 SECONDS (21-34) H 06/12/17 01:44 - Constitutional Appears: Non-toxic, No Acute Distress - ENT Exam ENT Exam: Mucous Membranes Moist - Respiratory Exam Respiratory Exam: absent: Accessory Muscle Use, Respiratory Distress - Cardiovascular Exam Cardiovascular Exam: REGULAR RHYTHM. absent: Tachycardia - Extremities Exam Additional comments: right extremity wound, still with mild induration, but swelling reduced beginnings of granulation, no further bleeding - Neurological Exam Neurological Exam: Alert, Awake, Oriented x3 - Psychiatric Exam Psychiatric exam: Normal Affect, Normal Mood - Skin Skin Exam: Normal Color, Warm Assessment and Plan - Assessment and Plan (Free Text) Assessment: 26M w/ right arm abscess s/p I&D and fasciotomy 2/2 IVDA Plan: cont abx as per ID cultures pending continue wet-to-dry dressing changes will consider wound vac will d/w Dr Mirela Huff, PGY3
--- NOTE | 2017-06-16 16:03 | CP.PCM.PN ---
Subjective - Date & Time of Evaluation Date of Evaluation: 06/16/17 Time of Evaluation: 04:00 - Subjective Subjective: dictated Objective - Vital Signs/Intake and Output Vital Signs (last 24 hours): Temp Pulse Resp BP Pulse Ox 98.1 F 53 L 20 122/71 100 06/16/17 09:52 06/16/17 09:52 06/16/17 09:52 06/16/17 09:52 06/16/17 09:52 Intake and Output: 06/16/17 06/16/17 06:59 18:59 Intake Total 1380 480 Output Total 1800 300 Balance -420 180 - Medications Medications: Current Medications Hydromorphone HCl (Dilaudid) 0.5 mg IVP Q4H PRN PRN Reason: Pain, severe (8-10) Last Admin: 06/16/17 14:19 Dose: 0.5 mg Trimethoprim/Sulfamethoxazole (160 mg/ Dextrose) 250 mls @ 166.667 mls/hr IVPB Q12H AURELIANO Last Admin: 06/16/17 13:12 Dose: 166.667 mls/hr Vancomycin HCl 1,400 mg/ (Sodium Chloride) 500 mls @ 250 mls/hr IVPB Q12H AURELIANO PRN Reason: Protocol Last Admin: 06/16/17 09:56 Dose: 250 mls/hr Zolpidem Tartrate (Ambien) 5 mg PO HS PRN PRN Reason: Insomnia - Labs Labs: 06/16/17 06:58 06/16/17 06:58 PT 15.2 SECONDS (9.7-12.2) H 06/12/17 01:44 INR 1.3 06/12/17 01:44 APTT 35 SECONDS (21-34) H 06/12/17 01:44
--- NOTE | 2017-06-16 23:48 | PN ---
DATE: 06/16/2017 SUBJECTIVE: The patient is afebrile. He is asking to have when he will be discharged.. PHYSICAL EXAMINATION VITAL SIGNS: T-max is 98.4, pulse is 64, blood pressure 132/73, respirations are 20. HEENT: Head is atraumatic. NECK: Supple. LUNGS: Clear. HEART: S1, S2 is regular. ABDOMEN: Soft and nontender. EXTREMITIES: No edema. Right forearm has an open wound with a packing, which is deep and was seen by the wound care nurse also today. LABORATORY DATA: Labs are noted. Labs showed white count is 8.5, hemoglobin 11.3, hematocrit 32.9, platelet count is 318. Chemistry showed that his BUN is 10, creatinine is 0.7, he is vancomycin as well as Bactrim at this time. His blood cultures once set had Strep mitis, which is viridans group and is sensitive to Rocephin, clindamycin, penicillin, and vancomycin and the other one has Stenotrophomonas maltophilia, which is Bactrim sensitive. This was Gram negative. ASSESSMENT AND PLAN: At this time, I left him on vancomycin and Bactrim and I am waiting to see to get a Transesophageal echocardiography done if possible as the echo was unremarkable, but he has different organisms growing and Streptococcus mitis can cause endocarditis and he is an IV drug abuser. Also, we are looking for Staphylococcus. If it is sensitive to Rocephin, it is however sensitive to Bactrim and the repeat cultures are however negative. He is on antibiotics, today is the fourth day. If it is simple bacteremia, he will need 10 more days of antibiotics, but I would want to get a IVANIA done to rule out any endocarditis before and will follow. Chloé Ford MD
[2017-06-17] MEDS: Sulfamethoxazole/Trimethoprim 160 MG in Dextrose 5% In Water 250 ML IVPB SCH ×2 (01:31→13:00)
[2017-06-17] MEDS: oxyCODONE 10 mg ER Tab (oxyCONTIN) PO SCH ×2 (09:58→21:40)
--- NOTE | 2017-06-17 13:30 | CP.PCM.CON ---
History of Present Illness - History of Present Illness History of Present Illness: Pain Management Consult Answering for Dr Keyshawn Chavira Pt is 26 year old male current IVDA presented to [facility] with abscess in right forearm. No other PMH, PSH, no known chronic pain history. Dr Dietz performed I+D. Now primary team consulting Pain management for assistance in pain meds. Spoke to Dr Keyshawn Chavira, Pain Management, reviewed meds, history and current plan with him. He recommends: 1) Keep OxyContin as is 2)D/C Dilaudid 3)Add in its place Oxycodone 10mg q6 prn pain 4)When ready for discharge home, few tablets of Percocet and Ibuprofen Contact Dr Keyshawn Chavira, for all further issues and questions. Past Patient History - Infectious Disease Hx of Infectious Diseases: None - Tetanus Immunizations Tetanus Immunization: Unknown - Past Social History Smoking Status: Heavy Smoker > 10 Cigarettes Daily - MUSCULOSKELETAL/RHEUMATOLOGICAL Hx Falls: No - PSYCHIATRIC Hx Substance Use: Yes - SURGICAL HISTORY Hx Surgeries: No - ANESTHESIA Hx Anesthesia: No Hx Anesthesia Reactions: No Hx Malignant Hyperthermia: No Meds Allergies/Adverse Reactions: Allergies Allergy/AdvReac Type Severity Reaction Status Date / Time No Known Allergies Allergy Verified 06/12/17 00:18 - Medications Medications: Current Medications Hydromorphone HCl (Dilaudid) 1 mg IVP Q3H PRN PRN Reason: Pain, severe (8-10) Last Admin: 06/17/17 10:17 Dose: 1 mg Trimethoprim/Sulfamethoxazole (160 mg/ Dextrose) 250 mls @ 166.667 mls/hr IVPB Q12H AURELIANO Last Admin: 06/17/17 01:31 Dose: 166.667 mls/hr Vancomycin HCl 1,400 mg/ (Sodium Chloride) 500 mls @ 250 mls/hr IVPB Q12H AURELIANO PRN Reason: Protocol Last Admin: 06/17/17 10:00 Dose: 250 mls/hr Oxycodone HCl (Oxycontin Extended Release Tab) 10 mg PO Q12 AURELIANO Stop: 06/20/17 10:01 Last Admin: 06/17/17 09:58 Dose: 10 mg Zolpidem Tartrate (Ambien) 5 mg PO HS PRN PRN Reason: Insomnia Last Admin: 06/16/17 21:27 Dose: 5 mg Results - Vital Signs Recent Vital Signs: Last Vital Signs Temp 98.1 F 06/17/17 07:40 Pulse 57 L 06/17/17 07:40 Resp 20 06/17/17 07:40 BP 118/69 06/17/17 07:40 Pulse Ox 98 06/17/17 07:40 - Labs Result Diagrams: 06/16/17 06:58 06/16/17 06:58 Labs: Laboratory Results - last 24 hr 06/17/17 11:19 Vancomycin Trough 6.0
--- NOTE | 2017-06-17 17:58 | CP.PCM.PN ---
Subjective - Date & Time of Evaluation Date of Evaluation: 06/17/17 Time of Evaluation: 08:00 - Subjective Subjective: Surgery: Dr. Dietz Pt seen and examined. No acute events. Admits to pain in R arm but denies other complaints. No fevers overnight. Objective - Vital Signs/Intake and Output Vital Signs (last 24 hours): Temp Pulse Resp BP Pulse Ox 98.6 F 68 20 130/67 99 06/17/17 15:21 06/17/17 15:21 06/17/17 15:21 06/17/17 15:21 06/17/17 15:21 Intake and Output: 06/17/17 06/17/17 06:59 18:59 Intake Total 670 Output Total 1100 Balance -430 - Medications Medications: Current Medications Hydromorphone HCl (Dilaudid) 1 mg IVP Q3H PRN PRN Reason: Pain, severe (8-10) Last Admin: 06/17/17 14:13 Dose: 1 mg Trimethoprim/Sulfamethoxazole (160 mg/ Dextrose) 250 mls @ 166.667 mls/hr IVPB Q12H AURELIANO Last Admin: 06/17/17 13:00 Dose: 166.667 mls/hr Vancomycin HCl 1,400 mg/ (Sodium Chloride) 500 mls @ 250 mls/hr IVPB Q12H AURELIANO PRN Reason: Protocol Last Admin: 06/17/17 10:00 Dose: 250 mls/hr Oxycodone HCl (Oxycontin Extended Release Tab) 10 mg PO Q12 AURELIANO Stop: 06/20/17 10:01 Last Admin: 06/17/17 09:58 Dose: 10 mg Zolpidem Tartrate (Ambien) 5 mg PO HS PRN PRN Reason: Insomnia Last Admin: 06/16/17 21:27 Dose: 5 mg - Labs Labs: 06/16/17 06:58 06/16/17 06:58 PT 15.2 SECONDS (9.7-12.2) H 06/12/17 01:44 INR 1.3 06/12/17 01:44 APTT 35 SECONDS (21-34) H 06/12/17 01:44 - Constitutional Appears: Well, No Acute Distress - Head Exam Head Exam: ATRAUMATIC, NORMOCEPHALIC - ENT Exam ENT Exam: Mucous Membranes Moist - Respiratory Exam Respiratory Exam: NORMAL BREATHING PATTERN - Cardiovascular Exam Cardiovascular Exam: RRR - GI/Abdominal Exam GI & Abdominal Exam: Soft. absent: Tenderness - Extremities Exam Additional comments: R arm s/p debridement/fasciotomy with some granulation tissue noted in wound bed , no active drainage, clean - Neurological Exam Neurological Exam: Alert, Awake, Oriented x3 Assessment and Plan - Assessment and Plan (Free Text) Assessment: 26M s/p debridement & fasciotomy of RUE abscess/compartment syndrome Plan: - cont IV ABX per ID recs, total 2 weeks. Day 08/22 - f/u IVANIA per ID recs; cardio on board - d/w Dr. Dietz who agrees with above Nicolas, PGY-3
[2017-06-18] MEDS: Sulfamethoxazole/Trimethoprim 160 MG in Dextrose 5% In Water 250 ML IVPB SCH (00:23)
[2017-06-18 00:33] VITALS: BP 121/55; PULSE 56; TEMP 97.8; O2SAT 100
[2017-06-18] MEDS ORDERED: oxyCODONE 10 mg Immediate Release Tab PO PRN (05:40)
--- NOTE | 2017-06-18 05:42 | CP.PCM.PN ---
Subjective - Date & Time of Evaluation Date of Evaluation: 06/18/17 Time of Evaluation: 07:24 - Subjective Subjective: General surgery progress note for Dr. Oliva Padilla, PGY-1 Pt S & E at bedside. Pt refusing arm dressing change/physical exam- reports pain uncontrolled on pain regimen since surgery. Explained to pt that pain medication does not completely get rid of the pain, it makes it tolerable. Pt upset that he isn't getting more pain medications- asking to transfer hospitals or sign out AMA. Objective - Vital Signs/Intake and Output Vital Signs (last 24 hours): Temp Pulse Resp BP Pulse Ox 97.8 F 56 L 20 121/55 L 100 06/18/17 00:33 06/18/17 00:33 06/18/17 00:33 06/18/17 00:33 06/18/17 00:33 - Medications Medications: Current Medications Trimethoprim/Sulfamethoxazole (160 mg/ Dextrose) 250 mls @ 166.667 mls/hr IVPB Q12H AURELIANO Last Admin: 06/18/17 00:23 Dose: 166.667 mls/hr Vancomycin HCl 1,400 mg/ (Sodium Chloride) 500 mls @ 250 mls/hr IVPB Q12H AURELIANO PRN Reason: Protocol Last Admin: 06/17/17 21:40 Dose: 250 mls/hr Oxycodone HCl (Oxycontin Extended Release Tab) 10 mg PO Q12 AURELIANO Stop: 06/20/17 10:01 Last Admin: 06/17/17 21:40 Dose: 10 mg Oxycodone HCl (Oxycodone Immediate Release Tab) 10 mg PO Q6 PRN PRN Reason: Pain, moderate (4-7) Zolpidem Tartrate (Ambien) 5 mg PO HS PRN PRN Reason: Insomnia Last Admin: 06/17/17 21:39 Dose: 5 mg - Labs Labs: 06/16/17 06:58 06/16/17 06:58 PT 15.2 SECONDS (9.7-12.2) H 06/12/17 01:44 INR 1.3 06/12/17 01:44 APTT 35 SECONDS (21-34) H 06/12/17 01:44 - Constitutional Appears: Non-toxic, No Acute Distress - Head Exam Head Exam: ATRAUMATIC, NORMAL INSPECTION, NORMOCEPHALIC - Eye Exam Eye Exam: EOMI, Normal appearance - ENT Exam ENT Exam: Mucous Membranes Moist, Normal Exam - Neck Exam Neck Exam: Full ROM, Normal Inspection - Respiratory Exam Respiratory Exam: NORMAL BREATHING PATTERN - Cardiovascular Exam Cardiovascular Exam: REGULAR RHYTHM - Back Exam Additional comments: Right arm with dressing in place- clean/dry/intact, refusing physical exam - Neurological Exam Neurological Exam: Alert, Awake, CN II-XII Intact, Oriented x3 - Psychiatric Exam Psychiatric exam: Normal Affect. absent: Normal Mood (labile) - Skin Skin Exam: Dry, Intact, Normal Color, Warm Additional comments: unable to assess right arm surgical site - pt refusing Assessment and Plan - Assessment and Plan (Free Text) Assessment: 26M s/p debridement & fasciotomy of RUE abscess/compartment syndrome POD#6 Plan: Cont IV Abx per ID for total of 2 wks- Day 6/14 Echo w/ w/EF 50%, no vegetations, mild TR, mild pulm HTN, mild valvular regurgitation, borderline LVH FU IVANIA Cardio consulted- appreciate recs Pain mgmt recs- Cont oxycontin, d/c dilaudid, replace w/Oxycodone 10mg Q6H PRN pain, ok to d/c w/a few tabs of Percocet & Ibuprofen- changes implemented Will attempt to change dressing later MADHAV attending Valerie, PGY-1
--- NOTE | 2017-06-18 14:50 | CP.PCM.DIS ---
Provider - Provider Date of Admission: 06/12/17 01:56 Attending physician: Ady Dietz MD Consults: Infectious Disease: Dr. Ford Cardiolgoy: Dr. Graham Pain Management: Dr. Loco Time Spent in preparation of Discharge (in minutes): 45 Hospital Course - Lab Results Lab Results: Micro Results 06/14/17 08:12 Blood-Venous Blood Culture - Preliminary NO GROWTH AFTER 4 DAYS 06/14/17 07:19 Blood-Venous Blood Culture - Preliminary NO GROWTH AFTER 4 DAYS 06/12/17 07:57 Abscess - Arm-Right Gram Stain - Final 06/12/17 07:57 Abscess - Arm-Right Wound Culture - Final Staphylococcus Aureus 06/12/17 01:45 Blood Blood Culture - Final Stenotrophomonas Maltophilia 06/12/17 01:45 Blood Gram Stain - Final 06/12/17 02:15 Blood S.aureus & Coag-Neg Staph PNA FISH - Final 06/12/17 02:15 Blood Blood Culture - Final Streptococcus Mitis 06/12/17 02:15 Blood Gram Stain - Final 06/12/17 Unknown Abscess - Forearm Gram Stain - Final 06/12/17 Unknown Abscess - Forearm Wound Culture - Final Staphylococcus Aureus Most Recent Lab Values WBC 8.5 K/uL (4.8-10.8) 06/16/17 06:58 RBC 3.89 Mil/uL (4.40-5.90) L 06/16/17 06:58 Hgb 11.3 g/dL (12.0-18.0) L 06/16/17 06:58 Hct 32.9 % (35.0-51.0) L 06/16/17 06:58 MCV 84.5 fL (80.0-94.0) 06/16/17 06:58 MCH 28.9 pg (27.0-31.0) 06/16/17 06:58 MCHC 34.2 g/dL (33.0-37.0) 06/16/17 06:58 RDW 12.6 % (11.5-14.5) 06/16/17 06:58 Plt Count 318 K/uL (130-400) 06/16/17 06:58 MPV 8.7 fL (7.2-11.7) 06/16/17 06:58 Neut % (Auto) 62.9 % (50.0-75.0) 06/16/17 06:58 Lymph % (Auto) 22.9 % (20.0-40.0) 06/16/17 06:58 [place] % (Auto) 9.4 % (0.0-10.0) 06/16/17 06:58 Eos % (Auto) 3.7 % (0.0-4.0) 06/16/17 06:58 Baso % (Auto) 1.1 % (0.0-2.0) 06/16/17 06:58 Neut # (Auto) 5.3 K/uL (1.8-7.0) 06/16/17 06:58 Lymph # (Auto) 1.9 K/uL (1.0-4.3) 06/16/17 06:58 [place] # (Auto) 0.8 K/uL (0.0-0.8) 06/16/17 06:58 Eos # (Auto) 0.3 K/uL (0.0-0.7) 06/16/17 06:58 Baso # (Auto) 0.1 K/uL (0.0-0.2) 06/16/17 06:58 ESR 20 mm/hr (0-15) H 06/14/17 07:19 PT 15.2 SECONDS (9.7-12.2) H 06/12/17 01:44 INR 1.3 06/12/17 01:44 APTT 35 SECONDS (21-34) H 06/12/17 01:44 pO2 74 mm/Hg (30-55) H 06/12/17 01:52 VBG pH 7.48 (7.32-7.43) H 06/12/17 01:52 VBG pCO2 37 mmHg (40-60) L 06/12/17 01:52 VBG HCO3 28.0 mmol/L 06/12/17 01:52 VBG Total CO2 28.7 mmol/L (22-28) H 06/12/17 01:52 VBG O2 Sat (Calc) 98.6 % (40-65) H 06/12/17 01:52 VBG Base Excess 4.0 mmol/L (0.0-2.0) H 06/12/17 01:52 VBG Potassium 3.4 mmol/L (3.6-5.2) L 06/12/17 01:52 Sodium 133.0 mmol/l (132-148) 06/12/17 01:52 Chloride 100.0 mmol/L (98-107) 06/12/17 01:52 Glucose 98 mg/dl (75-110) 06/12/17 01:52 Lactate 0.7 mmol/L (0.7-2.1) 06/12/17 01:52 Sodium 141 mmol/L (132-148) 06/16/17 06:58 Potassium 3.8 mmol/L (3.6-5.2) 06/16/17 06:58 Chloride 105 mmol/L (98-107) 06/16/17 06:58 Carbon Dioxide 25 mmol/L (22-30) 06/16/17 06:58 Anion Gap 16 (10-20) 06/16/17 06:58 BUN 10 mg/dL (9-20) 06/16/17 06:58 Creatinine 0.7 mg/dL (0.8-1.5) L 06/16/17 06:58 Est GFR ( Amer) > 60 06/16/17 06:58 Est GFR (Non-Af Amer) > 60 06/16/17 06:58 Random Glucose 84 mg/dL (75-110) 06/16/17 06:58 Calcium 8.6 mg/dl (8.6-10.4) 06/16/17 06:58 Magnesium 2.1 mg/dL (1.6-2.3) 06/12/17 01:44 Total Bilirubin 0.7 mg/dL (0.2-1.3) 06/16/17 06:58 AST 46 U/L (17-59) 06/16/17 06:58 ALT 49 U/L (21-72) 06/16/17 06:58 Alkaline Phosphatase 96 U/L (38-126) 06/16/17 06:58 C-React Prot High Sens > 15.00 mg/L (1.00-3.00) H 06/14/17 07:19 Total Protein 6.9 g/dL (6.3-8.3) 06/16/17 06:58 Albumin 3.1 g/dL (3.5-5.0) L 06/16/17 06:58 Globulin 3.9 gm/dL (2.2-3.9) 06/16/17 06:58 Albumin/Globulin Ratio 0.8 (1.0-2.1) L 06/16/17 06:58 Venous Blood Potassium 3.4 mmol/L (3.6-5.2) L 06/12/17 01:52 Urine Color Yellow (YELLOW) 06/12/17 01:29 Urine Clarity Clear (Clear) 06/12/17 01:29 Urine pH 6.0 (5.0-8.0) 06/12/17 01:29 Ur Specific [place] 1.012 (1.003-1.030) 06/12/17 01:29 Urine Protein Negative mg/dL (NEGATIVE) 06/12/17 01:29 Urine Glucose (UA) Normal mg/dL (Normal) 06/12/17 01:29 Urine Ketones Negative mg/dL (NEGATIVE) 06/12/17 01:29 Urine Blood Negative (NEGATIVE) 06/12/17 01:29 Urine Nitrate Negative (NEGATIVE) 06/12/17 01:29 Urine Bilirubin Negative (NEGATIVE) 06/12/17 01:29 Urine Urobilinogen 4.0 mg/dL (0.2-1.0) 06/12/17 01:29 Ur Leukocyte Esterase Trace Nicolas[place]/uL (Negative) 06/12/17 01:29 Urine WBC (Auto) 9 /hpf (0-5) H 06/12/17 01:29 Urine RBC (Auto) < 1 /hpf (0-3) 06/12/17 01:29 Vancomycin Peak 10.4 ug/mL (30.0-40.0) L 06/17/17 14:08 Vancomycin Trough 6.0 ug/mL (5.0-10.0) 06/17/17 11:19 - Hospital Course Hospital Course: Upon Admission: 26yo M with hx of IVDA here with pain and swelling to right forearm. Found to have a large abscess, patient was taken to the OR and Incision and drainage with fasciotomy was performed. Transthoracic ECHO performed with no evidence of vegetations. Blood cultures positive x2 (Strep Mitis, Stenotrophomonas Maltophilia). Postoperatively, patient was placed on IV Abx as per the recommendations of Infectious disease financial management consultant. ID recommended Transesophageal ECHO to r/o endocarditis. Cardiology was consulted in order to assist in the IVANIA. Patient required high dose opioids for control and pain management was consulted who made their recommendations. Patient was not amenable to pain management recommendations and decided to leave the hospital against medical advice prior to recommended through work-up. All risks of his decision and the benefits to staying for appropriate care were described to the patient who verbalized his understanding. He refused to sign the AMA paper work. Nursing staff discontinued the IV prior to the patient leaving. 1. Right Arm Abscess. S/p I&D w fasciotomy on 06/12/17. Patient left the hospital Against Medical Advice. Discharge Exam - Head Exam Head Exam: ATRAUMATIC, NORMAL INSPECTION, NORMOCEPHALIC - Eye Exam Eye Exam: EOMI, Normal appearance. absent: Scleral icterus - ENT Exam ENT Exam: Mucous Membranes Moist - Respiratory Exam Respiratory Exam: NORMAL BREATHING PATTERN, UNREMARKABLE. absent: Accessory Muscle Use, Respiratory Distress - Cardiovascular Exam Cardiovascular Exam: RRR. absent: JVD - GI/Abdominal Exam GI & Abdominal Exam: Soft. absent: Distended, Guarding, Tenderness - Extremities Exam Additional comments: Right upper extremity forearm: Open incision, no active bleeding noted. Dressed with gauze and kerlex. Patient refused dressing changes today. - Neurological Exam Neurological exam: Alert, Oriented x3 - Psychiatric Exam Psychiatric exam: Normal Affect, Normal Mood Discharge Plan - Follow Up Plan Condition: GUARDED Disposition: AGAINST MEDICAL ADVICE
== END 2017-06-18 08:38 | disposition left against medical advice (07) | DRG 872 ==
LOC: C.ER 23:52 → C.9E 06-12 01:56 → C.6T 06-12 03:25
PROVIDERS: ADMIT Surgery; ATTEND Surgery
PROC: 0J9G0ZX Drainage of Right Lower Arm Subcutaneous Tissue and Fascia, Open Approach, Diagnostic (ICD-10-PCS; principal; 2017-06-12 10:00)
DX: A41.50 Gram-negative sepsis, unspecified (principal); T79.A11A Traumatic compartment syndrome of right upper extremity, initial encounter; L03.113 Cellulitis of right upper limb; F11.20 Opioid dependence, uncomplicated; F17.210 Nicotine dependence, cigarettes, uncomplicated; X78.8XXA Intentional self-harm by other sharp object, initial encounter

== ENCOUNTER 2017-08-08 23:22 | Inpatient (IN) | payer MEDICAID, OTHER ==
[2017-08-08 23:24] VITALS: BMI 22.4
--- NOTE | 2017-08-09 00:52 | C.PDOC ---
History Of Present Illness Patient presents to the ER with a complaint of swelling, redness, and tenderness over his left forearm. Patient is an IVDA, he states he noticed swelling to the area a week ago, he continues to inject heroin to the site and is now with a large 6x8cm area of multiple lobulations with induration, erythema , and pain over left forearm. Patient had a similar episode on his right forearm in June. Denies fever or chills. Time Seen by Provider: 08/08/17 23:49 Chief Complaint (Nursing): Abnormal Skin Integrity History Per: Patient History/Exam Limitations: no limitations Onset/Duration Of Symptoms: Days Current Symptoms Are (Timing): Still Present Location Of Injury: Left: Forearm Quality Of Symptoms: Painful, Swollen, Other (Erythema) Recent travel outside of the [place]: No Past Medical History Reviewed: Historical Data, Nursing Documentation, Vital Signs Vital Signs: Last Vital Signs Temp 101.6 F H 08/08/17 23:43 Pulse 79 08/09/17 03:00 Resp 20 08/09/17 03:00 BP 146/65 08/08/17 23:43 Pulse Ox 98 08/09/17 03:11 - [facility] Procedures DRAINAGE OF R LOW ARM SUBCU/FASCIA, OPEN APPROACH, DIAGN (06/12/17) Family History: States: No Known Family Hx - Social History Hx Alcohol Use: No Hx Substance Use: Yes - Immunization History Hx Tetanus Toxoid Vaccination: No Hx Influenza Vaccination: No Hx Pneumococcal Vaccination: No Review Of Systems Constitutional: Negative for: Fever, Chills Cardiovascular: Negative for: Chest Pain Respiratory: Negative for: Cough Musculoskeletal: Positive for: Arm Pain Skin: Positive for: Other (Swelling, erythema) Neurological: Negative for: Weakness, Numbness Physical Exam - Physical Exam Appears: Non-toxic Skin: Warm, Dry Head: Normacephalic Oral Mucosa: Moist Chest: Symmetrical, No Tenderness Cardiovascular: Rhythm Regular Respiratory: No Rales, No Rhonchi, No Wheezing Gastrointestinal/Abdominal: Soft, No Tenderness Extremity: Capillary Refill (<2 seconds), Other (large 6x8cm area of multiple lobulations with induration, erythema, and pain over left forearm. Edema of left hand, movement of fingers intact, however, causes pain. ) Pulses: Left Radial: Normal, Right Radial: Normal Neurological/Psych: Oriented x3 ED Course And Treatment - Laboratory Results Result Diagrams: 08/09/17 00:57 08/09/17 00:57 O2 Sat by Pulse Oximetry: 98 (Room air) Pulse Ox Interpretation: Normal - Radiology CXR: Interpreted by Me, Viewed By Me Progress Note: CT upper extremity, blood work, and urinalysis ordered. Clindamycin, gentamicin, vancomycin, and IV fluids administered. executive vice president of sales at bedside 1:[address] reading Critical Care Time - Critical Care Note Total Time (in mins): 30 Documented critical care: time excludes all time spent performing seperately billable procedures. Disposition Discussed With Dr.: Lavon Nieto Comment: accepted the pt onhis service and took over the care at 3:10 AM Doctor Will See Patient In The: ED Counseled Patient/Family Regarding: Studies Performed, Diagnosis - Disposition Disposition: HOSPITALIZED Disposition Time: 00:51 Condition: FAIR Forms: [facility] (Lao) - POA Present On Arrival: None - Clinical Impression Clinical Impression: Abscess, Cellulitis, Intravenous drug abuse - Scribe Statement The provider has reviewed the documentation as recorded by the Scribluther Carroll All medical record entries made by the Scribe were at my direction and personally dictated by me. I have reviewed the chart and agree that the record accurately reflects my personal performance of the history, physical exam, medical decision making, and the department course for this patient. I have also personally directed, reviewed, and agree with the discharge instructions and disposition. Decision To Admit - Pt Status Changed To: Hospital Disposition Of: Inpatient - Admit Certification Admit to Inpatient:: After my assessment, the patient will require hospitalization for at least two midnights. This is because of the severity of symptoms shown, intensity of services needed, and/or the medical risk in this patient being treated as an outpatient. - InPatient: Physician Admission Certification: I certify that this patient requires 2 or more midnights of care for the following reason:: After my assessment, the patient will require hospitalization for at least two midnights. This is because of the severity of symptoms shown, intensity of services needed, and/or the medical risk in this patient being treated as an outpatient. - . Bed Request Type: Regular Admitting Physician: Lavon Nieto Patient Diagnosis: Abscess, Cellulitis, Intravenous drug abuse
[2017-08-09] MEDS ORDERED: Gentamicin 80 mg/2mL Inj. IVPB STA (00:53)
[2017-08-09] MEDS ORDERED: Sodium Chloride 0.9% 1,000 ML IV ONE (00:53)
[2017-08-09 01:00] LABS: BASO # 0.1 K/uL (0.0-0.2); BASO % 0.6 % (0.0-2.0); EOS % 0.3 % (0.0-4.0); LYMPH # 1.5 K/uL (1.0-4.3); LYMPH % 10.3 % (20.0-40.0); MEAN CELL VOLUME 80.9 fL (80.0-94.0); MEAN CORPUSCULAR HGB CONC 34.6 g/dL (33.0-37.0); MEAN PLATELET VOLUME 8.5 fL (7.2-11.7); MONO # 1.2 K/uL (0.0-0.8); MONO % 8.5 % (0.0-10.0); NEUT # 11.7 K/uL (1.8-7.0); NEUT % 80.3 % (50.0-75.0); RBC 3.92 Mil/uL (4.40-5.90); RED CELL DISTRIBUTION WIDTH 13.7 % (11.5-14.5); WHITE BLOOD COUNT 14.6 K/uL (4.8-10.8)
[2017-08-09] MEDS ORDERED: Clindamycin 600mg/50ml D5W 600 MG/50 ML VIAL IVPB SCH (01:00)
[2017-08-09] MEDS ORDERED: Clindamycin 600mg/50ml NS 600 MG/50 ML BAG IVPB STA (01:03)
[2017-08-09] MEDS ORDERED: Clindamycin 600mg/50ml NS 600 MG/50 ML BAG IVPB ONE (01:09)
[2017-08-09 01:11] LABS: CALCIUM 8.2 mg/dl (8.6-10.4); GFR AFRICAN-AMERICAN > 60; GFR NON-AFRICAN AMERICAN > 60
[2017-08-09 01:11] LABS: VENOUS BLOOD GAS BASE EXCESS 2.3 mmol/L (0.0-2.0); VENOUS BLOOD GAS PCO2 39 mmHg (40-60); VENOUS BLOOD GAS PO2 71 mm/Hg (30-55); VENOUS BLOOD PH 7.44 (7.32-7.43)
[2017-08-09 01:14] LABS: ALB/GLOB RATIO 0.8 (1.0-2.1); ALBUMIN 3.9 g/dL (3.5-5.0); ALT/SGPT 12 U/L (21-72); AST/SGOT 53 U/L (17-59); BLOOD UREA NITROGEN 13 mg/dL (9-20)
[2017-08-09] MEDS ORDERED: Iohexol 350mg/ml 100 ML ONE (01:16)
[2017-08-09 01:17] LABS: INR 1.2; PROTHROMBIN TIME 13.9 SECONDS (9.7-12.2)
[2017-08-09] MEDS ORDERED: Lidocaine 2% Inj (20ml) IV ONE (02:04)
[2017-08-09] MEDS ORDERED: Morphine 4 MG/ML VIAL ONE (02:13)
--- NOTE | 2017-08-09 02:18 | CT ---
EXAM: CT Left Upper Extremity With Intravenous Contrast CLINICAL HISTORY: 26 years old, male; Pain and signs and symptoms; Mass or lump and swelling; Arm, lower; Left; Arm, lower and elbow; Additional info: Ivda , larg abscess with very swelling and hot left arm. Prior ho. Same thing with right arm TECHNIQUE: Axial computed tomography images of the left upper extremity with intravenous contrast. All CT scans at this facility use one or more dose reduction techniques, viz.: automated exposure control; ma/kV adjustment per patient size (including targeted exams where dose is matched to indication; i.e. head); or iterative reconstruction technique. Coronal and sagittal reformatted images were created and reviewed. CONTRAST: 1100 mL of [id number] administered intravenously. COMPARISON: No relevant prior studies available. FINDINGS: Limitations: Suboptimal positioning. Streak artifact - mild. Bones/joints: No acute fracture. No dislocation. No definite cortical destruction. Soft tissues: Mild skin thickening. Moderate to extensive stranding within subcutaneous tissues. 5.7 x 3.1 x 8.1 cm peripherally enhancing fluid collection within subcutaneous tissues along proximal forearm contiguous with or extending into adjacent musculature. IMPRESSION: 1. Findings compatible with cellulitis and abscess.
--- NOTE | 2017-08-09 03:10 | CP.PCM.HP ---
History of Present Illness - History of Present Illness History of Present Illness: General Surgery H&P for Dr. Nieto cc: left upper extremity pain and swelling 26 M with PMH that includes of IVDA who presents to [facility] for complaint of left upper extremity pain and swelling. Patient was seen and evaluated in the ED. Patient states that pain and swelling has been present for 5 days. He reports sudden onset. He states that he was injecting heroin at the affected site. He has had similar episodes in the past. Most recent was June 2017 where he required I&D plus fasciotomy of right upper extremity in the OR. He also reports associated fever/chills. He rates pain as severe. He describes pain as constant and throbbing located in the left upper extremity. Movement/ palpation aggrevates symptoms while nothing alleviates them. He denies recent illness or sick contacts. Denies chest pain, SOB, palpitations, abdominal pain, nausea/vomiting, diarrhea, constipation, numbness/tingling, urinary symptoms. PMD: Denies PMH: sickle cell trait Meds: denies Allergy: NKDA PSH: multiple I&D for abscesses in arms due to IVDA FH: mother - sickle cell disease Social: current smoker - half pack.day, admits to 10-15 bags of heroin/day, denies EtOH, currently employed Present on Admission - Present on Admission Any Indicators Present on Admission: No History of DVT/PE: No History of Uncontrolled Diabetes: No Urinary Catheter: No Decubitus Ulcer Present: No History Surgical Site Infection Following: None Review of Systems - Review of Systems All systems: reviewed and no additional remarkable complaints except (as per HPI ) Past Patient History - Infectious Disease Hx of Infectious Diseases: None - Tetanus Immunizations Tetanus Immunization: Unknown - Past Social History Smoking Status: Heavy Smoker > 10 Cigarettes Daily - CARDIAC Hx Cardiac Disorders: No - HEMATOLOGICAL/ONCOLOGICAL Hx Blood Disorders: Yes - INTEGUMENTARY Hx Dermatological Problems: Yes Hx Cellulitis: Yes (rt. arm May 2017) - MUSCULOSKELETAL/RHEUMATOLOGICAL Hx Falls: No - PSYCHIATRIC Hx Substance Use: Yes - SURGICAL HISTORY Hx Surgeries: Yes Other/Comment: Rt arm sx due to abscess and cellulitis. - ANESTHESIA Hx Anesthesia: Yes Hx Anesthesia Reactions: No Hx Malignant Hyperthermia: No Meds Allergies/Adverse Reactions: Allergies Allergy/AdvReac Type Severity Reaction Status Date / Time No Known Allergies Allergy Verified 08/08/17 23:52 Physical Exam - Constitutional Appears: In Acute Distress - Head Exam Head Exam: ATRAUMATIC, NORMOCEPHALIC - Eye Exam Eye Exam: EOMI, Scleral icterus Pupil Exam: PERRL - ENT Exam ENT Exam: Mucous Membranes Dry - Neck Exam Neck exam: Positive for: Full Rom - Respiratory Exam Respiratory Exam: NORMAL BREATHING PATTERN - Cardiovascular Exam Cardiovascular Exam: REGULAR RHYTHM, +S1, +S2, Systolic Murmur (at apex) - GI/Abdominal Exam GI & Abdominal Exam: Normal Bowel Sounds, Soft. absent: Tenderness - Extremities Exam Extremities exam: Positive for: normal capillary refill, pedal pulses present. Negative for: calf tenderness Additional comments: LUE forearm: edema, erythema, indurated, warm to touch, radial and ulnar pulses present, no motor or sensation deficit, track hadley from IVDA - Back Exam Back exam: absent: CVA tenderness (L), CVA tenderness (R) - Neurological Exam Neurological exam: Alert, CN II-XII Intact, Normal Gait, Oriented x3 - Psychiatric Exam Psychiatric exam: Normal Affect, Normal Mood - Skin Skin Exam: Dry, Erythema, Warm Results - Vital Signs Recent Vital Signs: Last Vital Signs Temp 101.6 F H 08/08/17 23:43 Pulse 79 08/09/17 03:00 Resp 20 08/09/17 03:00 BP 146/65 08/08/17 23:43 Pulse Ox 100 08/09/17 03:00 - Labs Result Diagrams: 08/09/17 00:57 08/09/17 00:57 Labs: Laboratory Results - last 24 hr 08/09/17 08/09/17 08/09/17 00:57 00:57 01:04 WBC 14.6 H D RBC 3.92 L Hgb 11.0 L Hct 31.8 L MCV 80.9 D MCH 28.0 MCHC 34.6 RDW 13.7 Plt Count 262 MPV 8.5 Neut % (Auto) 80.3 H Lymph % (Auto) 10.3 L [place] % (Auto) 8.5 Eos % (Auto) 0.3 Baso % (Auto) 0.6 Neut # (Auto) 11.7 H Lymph # (Auto) 1.5 [place] # (Auto) 1.2 H Eos # (Auto) 0.0 Baso # (Auto) 0.1 PT 13.9 H INR 1.2 APTT 36 H pO2 VBG pH VBG pCO2 VBG HCO3 VBG Total CO2 VBG O2 Sat (Calc) VBG Base Excess VBG Potassium Glucose Lactate Sodium 137 Potassium 5.1 Chloride 99 Carbon Dioxide 26 Anion Gap 17 BUN 13 Creatinine 0.7 L Est GFR ( Amer) > 60 Est GFR (Non-Af Amer) > 60 Random Glucose 121 H Calcium 8.2 L Magnesium 2.2 Total Bilirubin 3.3 H AST 53 ALT 12 L D Alkaline Phosphatase 147 H D Total Protein 8.8 H Albumin 3.9 Globulin 4.9 H Albumin/Globulin Ratio 0.8 L Venous Blood Potassium 08/09/17 01:06 WBC RBC Hgb Hct MCV MCH MCHC RDW Plt Count MPV Neut % (Auto) Lymph % (Auto) [place] % (Auto) Eos % (Auto) Baso % (Auto) Neut # (Auto) Lymph # (Auto) [place] # (Auto) Eos # (Auto) Baso # (Auto) PT INR APTT pO2 71 H VBG pH 7.44 H VBG pCO2 39 L VBG HCO3 26.6 VBG Total CO2 27.7 VBG O2 Sat (Calc) 97.9 H VBG Base Excess 2.3 H VBG Potassium 3.6 Glucose 129 H Lactate 0.8 Sodium 135.0 Potassium Chloride 104.0 Carbon Dioxide Anion Gap BUN Creatinine Est GFR ( Amer) Est GFR (Non-Af Amer) Random Glucose Calcium Magnesium Total Bilirubin AST ALT Alkaline Phosphatase Total Protein Albumin Globulin Albumin/Globulin Ratio Venous Blood Potassium 3.6 Assessment & Plan - Assessment and Plan (Free Text) Assessment: 26 M with PMH of IVDA with LUE abscess, r/o endocarditis; Ct findings reveal fluid collection in LUE measuring 5.7 x 3.1 x 8.1 cm Plan: -NPO -IV fluids -IV antibiotics -Pain control -Tylenol PRN for fevers -Warm compresses -Medicine consult, help appreciated -ID consult, help appreciated -f/u blood and wound culture -f/u ECHO -f/u Hep panel, HIV, RPR -f/u Drug screen -Patient refusing bedside I&D but allowed needle aspiration (25 cc of purulent fluid removed) -Patient will need complete I&D -Will discuss with Dr. Emilia Mckay PGY1 - Date & Time Date: 08/09/17 Time: 02:00
--- NOTE | 2017-08-09 03:51 | CP.PCM.CON ---
<MarcoLayamananAlex khan - Last Filed: 08/09/17 05:27> History of Present Illness - History of Present Illness History of Present Illness: CC: LUES abscess/fevers This patient is a 26yo M w/ a PMhx of IVDA for 5 years, 10-15 bags, smokes 1/2 pack of cigarettes a day, who is coming in for a 5 day history of fever/chills, and LUES swelling/pain/induration. Patient states he injects heroin into the left anterior forearm where he has pain and swelling, and has had this problem 4 -5 times in the past before. He denies cocaine use or EtOH abuse. 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 He admits to fevers/chills. Denies hx of heart murmur. Currently denies changes in vision, HEW[place], SOB, abdominal pain, N/V/D, dysuria/freq/urg or lower extremity pain/swelling. 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 arm May 2017) - MUSCULOSKELETAL/RHEUMATOLOGICAL Hx Falls: No - PSYCHIATRIC Hx Substance Use: Yes - SURGICAL HISTORY Hx Surgeries: Yes Other/Comment: Rt arm sx due to abscess and cellulitis. - ANESTHESIA Hx Anesthesia: Yes Hx Anesthesia Reactions: No Hx Malignant Hyperthermia: No Meds Allergies/Adverse Reactions: Allergies Allergy/AdvReac Type Severity Reaction Status Date / Time No Known Allergies Allergy Verified 08/08/17 23:52 - Medications Medications: Current Medications Acetaminophen (Tylenol 325mg Tab) 650 mg PO Q6 PRN PRN Reason: Pain, Mild (1-3) Sodium Chloride (Sodium Chloride 0.9%) 1,000 mls @ 150 mls/hr IV .Q6H40M [facility] Piperacillin Sod/Tazobactam Sod (Zosyn 3.375 Gm Iv Premix) 3.375 gm in 50 mls @ 100 mls/hr IVPB Q6H [facility] PRN Reason: Protocol Vancomycin/Sodium Chloride (Vancomycin 1 Gm/Ns 200 Ml) 1 gm in 200 mls @ 166.7 mls/hr IVPB Q12H [facility] PRN Reason: Protocol Stop: 08/14/17 04:01 Morphine Sulfate (Morphine) 4 mg IVP Q4H PRN PRN Reason: Pain, severe (8-10) Ondansetron HCl (Zofran Inj) 4 mg IVP Q6 PRN PRN Reason: Nausea/Vomiting Pantoprazole Sodium (Protonix Inj) 40 mg IVP DAILY [facility] Physical Exam - Constitutional Appears: Non-toxic, Chronically Ill - Head Exam Head Exam: ATRAUMATIC, NORMAL INSPECTION - Eye Exam Eye Exam: EOMI (injected ), PERRL, Scleral icterus - ENT Exam ENT Exam: Mucous Membranes Moist - Neck Exam Neck exam: Positive for: Full Rom. Negative for: Lymphadenopathy, Thyromegaly - Respiratory Exam Respiratory Exam: Clear to Auscultation Bilateral, NORMAL BREATHING PATTERN. absent: Rales, Rhonchi, Wheezes - Cardiovascular Exam Cardiovascular Exam: REGULAR RHYTHM, +S1, +S2 (systolic murmur 4/6 appreciated best at cardiac apex ), Systolic Murmur - GI/Abdominal Exam GI & Abdominal Exam: Normal Bowel Sounds, Soft. absent: Tenderness - Extremities Exam Extremities exam: Positive for: full ROM. 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 absent: CVA tenderness (L), CVA tenderness (R) - Neurological Exam Neurological exam: Alert, Oriented x3 - Psychiatric Exam Psychiatric exam: Normal Affect - Skin Skin Exam: Warm Results - Vital Signs Recent Vital Signs: Last Vital Signs Temp 102.1 F H 08/09/17 03:37 Pulse 69 08/09/17 03:37 Resp 20 08/09/17 03:37 BP 136/75 08/09/17 03:37 Pulse Ox 99 08/09/17 03:37 - Labs Result Diagrams: 08/09/17 00:57 08/09/17 00:57 Labs: Laboratory Results - last 24 hr 08/09/17 08/09/17 08/09/17 00:57 00:57 01:04 WBC 14.6 H D RBC 3.92 L Hgb 11.0 L Hct 31.8 L MCV 80.9 D MCH 28.0 MCHC 34.6 RDW 13.7 Plt Count 262 MPV 8.5 Neut % (Auto) 80.3 H Lymph % (Auto) 10.3 L [place] % (Auto) 8.5 Eos % (Auto) 0.3 Baso % (Auto) 0.6 Neut # (Auto) 11.7 H Lymph # (Auto) 1.5 [place] # (Auto) 1.2 H Eos # (Auto) 0.0 Baso # (Auto) 0.1 PT 13.9 H INR 1.2 APTT 36 H pO2 VBG pH VBG pCO2 VBG HCO3 VBG Total CO2 VBG O2 Sat (Calc) VBG Base Excess VBG Potassium Glucose Lactate Sodium 137 Potassium 5.1 Chloride 99 Carbon Dioxide 26 Anion Gap 17 BUN 13 Creatinine 0.7 L Est GFR ( Amer) > 60 Est GFR (Non-Af Amer) > 60 Random Glucose 121 H Calcium 8.2 L Magnesium 2.2 Total Bilirubin 3.3 H AST 53 ALT 12 L D Alkaline Phosphatase 147 H D Total Protein 8.8 H Albumin 3.9 Globulin 4.9 H Albumin/Globulin Ratio 0.8 L Venous Blood Potassium 08/09/17 01:06 WBC RBC Hgb Hct MCV MCH MCHC RDW Plt Count MPV Neut % (Auto) Lymph % (Auto) [place] % (Auto) Eos % (Auto) Baso % (Auto) Neut # (Auto) Lymph # (Auto) [place] # (Auto) Eos # (Auto) Baso # (Auto) PT INR APTT pO2 71 H VBG pH 7.44 H VBG pCO2 39 L VBG HCO3 26.6 VBG Total CO2 27.7 VBG O2 Sat (Calc) 97.9 H VBG Base Excess 2.3 H VBG Potassium 3.6 Glucose 129 H Lactate 0.8 Sodium 135.0 Potassium Chloride 104.0 Carbon Dioxide Anion Gap BUN Creatinine Est GFR ( Amer) Est GFR (Non-Af Amer) Random Glucose Calcium Magnesium Total Bilirubin AST ALT Alkaline Phosphatase Total Protein Albumin Globulin Albumin/Globulin Ratio Venous Blood Potassium 3.6 Assessment & Plan - Assessment and Plan (Free Text) Assessment: 26yo M admitted for LUES abscess; consulted by Dr. Haywood service LUES Abscess -Vanc/Zosyn as per surgery -fluids as per surgery -pain control as per surgery -pre-op labs completed; patient is medically optimized for surgery -f/u HbA1c; elevated blood sugar -f/u HIV, RPR, hepatitis; patient is high risk and would benefit from PrEP 2/2 to high risk behavior Anemia -f/u B12, folate, iron/TIBC and %Sat -hx of sickle cell trait Heart Murmur -patient high risk for endocarditis -f/u blood cultures -f/u echo Prophylaxis -Protonix as per surgery -will hold anticoagulation 2/2 to surgery -SCD Discussed and seen with Dr. Elie Lopez PGY2 Rafi Trujillo S-III <Samir Delgadillo P - Last Filed: 08/09/17 06:30> Meds - Medications Medications: Current Medications Acetaminophen (Tylenol 325mg Tab) 650 mg PO Q6 PRN PRN Reason: Pain, Mild (1-3) Last Admin: 08/09/17 04:19 Dose: 650 mg Sodium Chloride (Sodium Chloride 0.9%) 1,000 mls @ 150 mls/hr IV .Q6H40M [facility] Last Admin: 08/09/17 04:25 Dose: 150 mls/hr Piperacillin Sod/Tazobactam Sod (Zosyn 3.375 Gm Iv Premix) 3.375 gm in 50 mls @ 100 mls/hr IVPB Q6H [facility] PRN Reason: Protocol Last Admin: 08/09/17 04:30 Dose: 100 mls/hr Vancomycin/Sodium Chloride (Vancomycin 1 Gm/Ns 200 Ml) 1 gm in 200 mls @ 166.7 mls/hr IVPB Q12H [facility] PRN Reason: Protocol Stop: 08/14/17 04:01 Last Admin: 08/09/17 04:38 Dose: 166.7 mls/hr Morphine Sulfate (Morphine) 4 mg IVP Q4H PRN PRN Reason: Pain, severe (8-10) Ondansetron HCl (Zofran Inj) 4 mg IVP Q6 PRN PRN Reason: Nausea/Vomiting Pantoprazole Sodium (Protonix Inj) 40 mg IVP DAILY [facility] Results - Vital Signs Recent Vital Signs: Last Vital Signs Temp 99.2 F 08/09/17 05:15 Pulse 98 H 08/09/17 04:05 Resp 20 08/09/17 04:05 BP 137/63 08/09/17 04:05 Pulse Ox 94 L 08/09/17 04:05 - Labs Result Diagrams: 08/09/17 00:57 08/09/17 00:57 Labs: Laboratory Results - last 24 hr 08/09/17 08/09/17 08/09/17 00:57 00:57 01:04 WBC 14.6 H D RBC 3.92 L Hgb 11.0 L Hct 31.8 L MCV 80.9 D MCH 28.0 MCHC 34.6 RDW 13.7 Plt Count 262 MPV 8.5 Neut % (Auto) 80.3 H Lymph % (Auto) 10.3 L [place] % (Auto) 8.5 Eos % (Auto) 0.3 Baso % (Auto) 0.6 Neut # (Auto) 11.7 H Lymph # (Auto) 1.5 [place] # (Auto) 1.2 H Eos # (Auto) 0.0 Baso # (Auto) 0.1 PT 13.9 H INR 1.2 APTT 36 H pO2 VBG pH VBG pCO2 VBG HCO3 VBG Total CO2 VBG O2 Sat (Calc) VBG Base Excess VBG Potassium Glucose Lactate Sodium 137 Potassium 5.1 Chloride 99 Carbon Dioxide 26 Anion Gap 17 BUN 13 Creatinine 0.7 L Est GFR ( Amer) > 60 Est GFR (Non-Af Amer) > 60 Random Glucose 121 H Calcium 8.2 L Magnesium 2.2 Total Bilirubin 3.3 H AST 53 ALT 12 L D Alkaline Phosphatase 147 H D Total Protein 8.8 H Albumin 3.9 Globulin 4.9 H Albumin/Globulin Ratio 0.8 L Venous Blood Potassium Alcohol, Quantitative 08/09/17 08/09/17 01:06 03:46 WBC RBC Hgb Hct MCV MCH MCHC RDW Plt Count MPV Neut % (Auto) Lymph % (Auto) [place] % (Auto) Eos % (Auto) Baso % (Auto) Neut # (Auto) Lymph # (Auto) [place] # (Auto) Eos # (Auto) Baso # (Auto) PT INR APTT pO2 71 H VBG pH 7.44 H VBG pCO2 39 L VBG HCO3 26.6 VBG Total CO2 27.7 VBG O2 Sat (Calc) 97.9 H VBG Base Excess 2.3 H VBG Potassium 3.6 Glucose 129 H Lactate 0.8 Sodium 135.0 Potassium Chloride 104.0 Carbon Dioxide Anion Gap BUN Creatinine Est GFR ( Amer) Est GFR (Non-Af Amer) Random Glucose Calcium Magnesium Total Bilirubin AST ALT Alkaline Phosphatase Total Protein Albumin Globulin Albumin/Globulin Ratio Venous Blood Potassium 3.6 Alcohol, Quantitative < 10 Attending/Attestation - Attestation I have personally seen and examined this patient.: Yes I have fully participated in the care of the patient.: Yes I have reviewed all pertinent clinical information: Yes Notes (Text): Assessment * left forearm abscess, cellulitis, needle drainage done in ER by surgery, of I& D today, neurovascularly intact. * Started on vanco/zosyn * H/o strep mitis bacterimia and staph areus infection in right forearm, non compliance, ivda active abuse, tobacco abuse, heroin abuse Plan * IV abx * echo due to ivda and systolic murmur, * HIV, hep panel due to behavioral risk. * Counselled about substance abuse * See orders for detail.
[2017-08-09] MEDS: Sodium Chloride 0.9% 1,000 ML IV SCH ×4 (04:25→23:50)
[2017-08-09] MEDS: Piperacill/Tazo 3.375gm in Dex 3.375 GM/50 ML BAG IVPB SCH ×4 (04:30→20:47)
[2017-08-09] MEDS: Vancomycin 1 gm/NS 200 ml 1 GM/200 ML BAG IVPB SCH ×2 (04:38→19:00)
--- NOTE | 2017-08-09 05:56 | CP.PCM.CON ---
History of Present Illness - History of Present Illness History of Present Illness: Hand Surgery Consult for Dr. Machado cc: left forearm pain and swelling 26 M with PMH that includes of IVDA who presents to [facility] for complaint of left upper extremity pain and swelling. Patient was seen and evaluated in the ED. Patient states that pain and swelling has been present for 5 days. He reports sudden onset. He states that he was injecting heroin at the affected site. He has had similar episodes in the past. Most recent was June 2017 where he required I&D plus fasciotomy of right upper extremity in the OR. He also reports associated fever/chills. He rates pain as severe. He describes pain as constant and throbbing located in the left upper extremity. Movement/ palpation aggrevates symptoms while nothing alleviates them. He denies recent illness or sick contacts. Denies chest pain, SOB, palpitations, abdominal pain, nausea/vomiting, diarrhea, constipation, numbness/tingling, urinary symptoms. PMD: Denies PMH: sickle cell trait Meds: denies Allergy: NKDA PSH: multiple I&D for abscesses in arms due to IVDA FH: mother - sickle cell disease Social: current smoker - half pack.day, admits to 10-15 bags of heroin/day, denies EtOH, currently employed Past Patient History - Infectious Disease Hx of Infectious Diseases: None - Tetanus Immunizations Tetanus Immunization: Unknown - Past Social History Smoking Status: Heavy Smoker > 10 Cigarettes Daily - CARDIAC Hx Cardiac Disorders: No - HEMATOLOGICAL/ONCOLOGICAL Hx Blood Disorders: Yes - INTEGUMENTARY Hx Dermatological Problems: Yes Hx Cellulitis: Yes (rt. arm May 2017) - MUSCULOSKELETAL/RHEUMATOLOGICAL Hx Falls: No - PSYCHIATRIC Hx Substance Use: Yes - SURGICAL HISTORY Hx Surgeries: Yes Other/Comment: Rt arm sx due to abscess and cellulitis. - ANESTHESIA Hx Anesthesia: Yes Hx Anesthesia Reactions: No Hx Malignant Hyperthermia: No Meds Allergies/Adverse Reactions: Allergies Allergy/AdvReac Type Severity Reaction Status Date / Time No Known Allergies Allergy Verified 08/08/17 23:52 - Medications Medications: Current Medications Acetaminophen (Tylenol 325mg Tab) 650 mg PO Q6 PRN PRN Reason: Pain, Mild (1-3) Last Admin: 08/09/17 04:19 Dose: 650 mg Sodium Chloride (Sodium Chloride 0.9%) 1,000 mls @ 150 mls/hr IV .Q6H40M [facility] Last Admin: 08/09/17 04:25 Dose: 150 mls/hr Piperacillin Sod/Tazobactam Sod (Zosyn 3.375 Gm Iv Premix) 3.375 gm in 50 mls @ 100 mls/hr IVPB Q6H [facility] PRN Reason: Protocol Last Admin: 08/09/17 04:30 Dose: 100 mls/hr Vancomycin/Sodium Chloride (Vancomycin 1 Gm/Ns 200 Ml) 1 gm in 200 mls @ 166.7 mls/hr IVPB Q12H [facility] PRN Reason: Protocol Stop: 08/14/17 04:01 Last Admin: 08/09/17 04:38 Dose: 166.7 mls/hr Morphine Sulfate (Morphine) 4 mg IVP Q4H PRN PRN Reason: Pain, severe (8-10) Ondansetron HCl (Zofran Inj) 4 mg IVP Q6 PRN PRN Reason: Nausea/Vomiting Pantoprazole Sodium (Protonix Inj) 40 mg IVP DAILY [facility] Physical Exam - Constitutional Appears: No Acute Distress - Head Exam Head Exam: ATRAUMATIC, NORMOCEPHALIC - Eye Exam Eye Exam: EOMI, Scleral icterus Pupil Exam: PERRL - Respiratory Exam Respiratory Exam: NORMAL BREATHING PATTERN - Cardiovascular Exam Cardiovascular Exam: REGULAR RHYTHM, Systolic Murmur - GI/Abdominal Exam GI & Abdominal Exam: Normal Bowel Sounds, Soft. absent: Tenderness - Extremities Exam Extremities exam: Positive for: normal capillary refill, pedal pulses present. Negative for: calf tenderness Additional comments: LUE forearm: edema, erythema, indurated, warm to touch, radial and ulnar pulses present, no motor or sensation deficit, track hadley from IVDA - Back Exam Back exam: absent: CVA tenderness (L), CVA tenderness (R) - Neurological Exam Neurological exam: Alert, CN II-XII Intact, Oriented x3 - Psychiatric Exam Psychiatric exam: Normal Affect, Normal Mood - Skin Skin Exam: Dry, Warm Results - Vital Signs Recent Vital Signs: Last Vital Signs Temp 99.2 F 08/09/17 05:15 Pulse 98 H 08/09/17 04:05 Resp 20 08/09/17 04:05 BP 137/63 08/09/17 04:05 Pulse Ox 94 L 08/09/17 04:05 - Labs Result Diagrams: 08/09/17 00:57 08/09/17 00:57 Labs: Laboratory Results - last 24 hr 08/09/17 08/09/17 08/09/17 00:57 00:57 01:04 WBC 14.6 H D RBC 3.92 L Hgb 11.0 L Hct 31.8 L MCV 80.9 D MCH 28.0 MCHC 34.6 RDW 13.7 Plt Count 262 MPV 8.5 Neut % (Auto) 80.3 H Lymph % (Auto) 10.3 L [place] % (Auto) 8.5 Eos % (Auto) 0.3 Baso % (Auto) 0.6 Neut # (Auto) 11.7 H Lymph # (Auto) 1.5 [place] # (Auto) 1.2 H Eos # (Auto) 0.0 Baso # (Auto) 0.1 PT 13.9 H INR 1.2 APTT 36 H pO2 VBG pH VBG pCO2 VBG HCO3 VBG Total CO2 VBG O2 Sat (Calc) VBG Base Excess VBG Potassium Glucose Lactate Sodium 137 Potassium 5.1 Chloride 99 Carbon Dioxide 26 Anion Gap 17 BUN 13 Creatinine 0.7 L Est GFR ( Amer) > 60 Est GFR (Non-Af Amer) > 60 Random Glucose 121 H Calcium 8.2 L Magnesium 2.2 Total Bilirubin 3.3 H AST 53 ALT 12 L D Alkaline Phosphatase 147 H D Total Protein 8.8 H Albumin 3.9 Globulin 4.9 H Albumin/Globulin Ratio 0.8 L Venous Blood Potassium Alcohol, Quantitative 08/09/17 08/09/17 01:06 03:46 WBC RBC Hgb Hct MCV MCH MCHC RDW Plt Count MPV Neut % (Auto) Lymph % (Auto) [place] % (Auto) Eos % (Auto) Baso % (Auto) Neut # (Auto) Lymph # (Auto) [place] # (Auto) Eos # (Auto) Baso # (Auto) PT INR APTT pO2 71 H VBG pH 7.44 H VBG pCO2 39 L VBG HCO3 26.6 VBG Total CO2 27.7 VBG O2 Sat (Calc) 97.9 H VBG Base Excess 2.3 H VBG Potassium 3.6 Glucose 129 H Lactate 0.8 Sodium 135.0 Potassium Chloride 104.0 Carbon Dioxide Anion Gap BUN Creatinine Est GFR ( Amer) Est GFR (Non-Af Amer) Random Glucose Calcium Magnesium Total Bilirubin AST ALT Alkaline Phosphatase Total Protein Albumin Globulin Albumin/Globulin Ratio Venous Blood Potassium 3.6 Alcohol, Quantitative < 10 Assessment & Plan - Assessment and Plan (Free Text) Assessment: 26 M with PMH of IVDA with LUE abscess, r/o endocarditis; Ct findings reveal fluid collection in LUE measuring 5.7 x 3.1 x 8.1 cm Plan: -NPO -IV fluids -IV antibiotics -Pain control -Tylenol PRN for fevers -Warm compresses -Plan for OR this afternoon -will discuss with Dr. Carter Mckay PGY1 - Date & Time Date: 08/09/17
[2017-08-09] MEDS ORDERED: Pantoprazole 40 mg EC Tab PO SCH (10:00)
[2017-08-09] MEDS: Saccharomyces Boulardi 250 mg Cap PO SCH ×2 (10:02→18:00)
--- NOTE | 2017-08-09 11:57 | CP.PCM.CON ---
History of Present Illness - History of Present Illness History of Present Illness: 6yo M w/ a PMhx of IVDA fadmitted for a 5 day history of fever/chills, and LUE swelling/pain/induration. 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 arm May 2017) - MUSCULOSKELETAL/RHEUMATOLOGICAL Hx Falls: No - PSYCHIATRIC Hx Substance Use: Yes - SURGICAL HISTORY Hx Surgeries: Yes Other/Comment: Rt arm sx due to abscess and cellulitis. - ANESTHESIA Hx Anesthesia: Yes Hx Anesthesia Reactions: No Hx Malignant Hyperthermia: No Meds Allergies/Adverse Reactions: Allergies Allergy/AdvReac Type Severity Reaction Status Date / Time No Known Allergies Allergy Verified 08/08/17 23:52 - Medications Medications: Current Medications Sodium Chloride (Sodium Chloride 0.9%) 1,000 mls @ 150 mls/hr IV .Q6H40M [facility] Last Admin: 08/09/17 04:25 Dose: 150 mls/hr Piperacillin Sod/Tazobactam Sod (Zosyn 3.375 Gm Iv Premix) 3.375 gm in 50 mls @ 100 mls/hr IVPB Q6H [facility] PRN Reason: Protocol Last Admin: 08/09/17 09:58 Dose: 100 mls/hr Vancomycin/Sodium Chloride (Vancomycin 1 Gm/Ns 200 Ml) 1 gm in 200 mls @ 166.7 mls/hr IVPB Q12H [facility] PRN Reason: Protocol Stop: 08/14/17 04:01 Last Admin: 08/09/17 04:38 Dose: 166.7 mls/hr Ketorolac Tromethamine (Toradol) 30 mg IVP Q6 PRN PRN Reason: Pain, severe (8-10) Ketorolac Tromethamine (Toradol) 15 mg IVP Q6 PRN PRN Reason: Pain, moderate (4-7) Oxycodone/Acetaminophen (Percocet 5/325 Mg Tab) 1 tab PO Q6H PRN PRN Reason: Pain, moderate (4-7) Stop: 08/12/17 08:01 Pantoprazole Sodium (Protonix Inj) 40 mg IVP DAILY [facility] Last Admin: 08/09/17 10:01 Dose: 40 mg Saccharomyces Boulardii (Florastor) 250 mg PO BID [facility] Last Admin: 08/09/17 10:02 Dose: 250 mg Physical Exam - Constitutional Appears: Chronically Ill - Head Exam Head Exam: ATRAUMATIC, NORMOCEPHALIC - Eye Exam Eye Exam: PERRL. absent: Scleral icterus - ENT Exam ENT Exam: Mucous Membranes Dry, Normal External Ear Exam - Neck Exam Neck exam: Negative for: Lymphadenopathy - Respiratory Exam Respiratory Exam: Decreased Breath Sounds, Clear to Auscultation Bilateral - Cardiovascular Exam Cardiovascular Exam: REGULAR RHYTHM, +S1, +S2, Systolic Murmur - GI/Abdominal Exam GI & Abdominal Exam: Diminished Bowel Sounds, Soft. absent: Tenderness - Rectal Exam Rectal Exam: Deferred - Exam Exam: NORMAL INSPECTION - Extremities Exam Extremities exam: Positive for: pedal pulses present. Negative for: calf tenderness, normal inspection, pedal edema Additional comments: massive swelling LUE - Back Exam Back exam: absent: CVA tenderness (L), CVA tenderness (R) - Neurological Exam Neurological exam: Alert, CN II-XII Intact, Oriented x3, Reflexes Normal - Psychiatric Exam Psychiatric exam: Normal Mood - Skin Skin Exam: Dry, Intact Results - Vital Signs Recent Vital Signs: Last Vital Signs Temp 98.5 F 08/09/17 07:57 Pulse 84 08/09/17 07:57 Resp 20 08/09/17 07:57 BP 127/73 08/09/17 07:57 Pulse Ox 96 08/09/17 07:57 - Labs Result Diagrams: 08/09/17 00:57 08/09/17 00:57 Labs: Laboratory Results - last 24 hr 08/09/17 08/09/17 08/09/17 00:57 00:57 01:04 WBC 14.6 H D RBC 3.92 L Hgb 11.0 L Hct 31.8 L MCV 80.9 D MCH 28.0 MCHC 34.6 RDW 13.7 Plt Count 262 MPV 8.5 Neut % (Auto) 80.3 H Lymph % (Auto) 10.[address] [place] % (Auto) 8.5 Eos % (Auto) 0.3 Baso % (Auto) 0.6 Neut # (Auto) 11.7 H Lymph # (Auto) 1.5 [place] # (Auto) 1.2 H Eos # (Auto) 0.0 Baso # (Auto) 0.1 PT 13.9 H INR 1.2 APTT 36 H pO2 VBG pH VBG pCO2 VBG HCO3 VBG Total CO2 VBG O2 Sat (Calc) VBG Base Excess VBG Potassium Glucose Lactate Sodium 137 Potassium 5.1 Chloride 99 Carbon Dioxide 26 Anion Gap 17 BUN 13 Creatinine 0.7 L Est GFR ( Amer) > 60 Est GFR (Non-Af Amer) > 60 Random Glucose 121 H Calcium 8.2 L Magnesium 2.2 Total Bilirubin 3.3 H AST 53 ALT 12 L D Alkaline Phosphatase 147 H D Total Protein 8.8 H Albumin 3.9 Globulin 4.9 H Albumin/Globulin Ratio 0.8 L Venous Blood Potassium Alcohol, Quantitative 08/09/17 08/09/17 01:06 03:46 WBC RBC Hgb Hct MCV MCH MCHC RDW Plt Count MPV Neut % (Auto) Lymph % (Auto) [place] % (Auto) Eos % (Auto) Baso % (Auto) Neut # (Auto) Lymph # (Auto) [place] # (Auto) Eos # (Auto) Baso # (Auto) PT INR APTT pO2 71 H VBG pH 7.44 H VBG pCO2 39 L VBG HCO3 26.6 VBG Total CO2 27.7 VBG O2 Sat (Calc) 97.9 H VBG Base Excess 2.3 H VBG Potassium 3.6 Glucose 129 H Lactate 0.8 Sodium 135.0 Potassium Chloride 104.0 Carbon Dioxide Anion Gap BUN Creatinine Est GFR ( Amer) Est GFR (Non-Af Amer) Random Glucose Calcium Magnesium Total Bilirubin AST ALT Alkaline Phosphatase Total Protein Albumin Globulin Albumin/Globulin Ratio Venous Blood Potassium 3.6 Alcohol, Quantitative < 10 Assessment & Plan (1) Abscess Status: Acute (2) Cellulitis Status: Acute (3) Intravenous drug abuse Status: Acute - Assessment and Plan (Free Text) Assessment: r/o endocarditis r/o septic thrombophlebitis r/o necrotizing fascitis left arm abscess secondary to IVDU going for I and D agree with empiric IV antibiotics stat echo consider CT Left arm r/o septic phlebitis await cultures cont wound care consider vaccines including Hepatitis and Tetanus screen for HIV and Hep C detox services PRN
[2017-08-09 14:24] LABS: IRON 12 ug/dL (49-181)
[2017-08-09 14:33] LABS: % IRON SATURATION 5 (20-55); TOTAL IRON BINDING CAPACITY 245 ug/dL (250-450)
[2017-08-09 14:59] LABS: HEPATITIS B SURFACE AG Negative (NEGATIVE)
[2017-08-09 15:04] LABS: HEPATITIS A IGM NEGATIVE (NEGATIVE); HEPATITIS B CORE AB NEGATIVE (NEGATIVE)
[2017-08-09 15:16] LABS: HEPATITIS C ANTIBODY NEGATIVE (NEGATIVE)
--- NOTE | 2017-08-09 15:45 | CP.PCM.PN ---
<Negrito Martines - Last Filed: 08/09/17 17:19> Subjective - Date & Time of Evaluation Date of Evaluation: 08/09/17 Time of Evaluation: 15:42 - Subjective Subjective: Patient seen and examined at bedside Complaining of pain at his arm site. Last time he used heroin was tuesday No other complaints at this time Objective - Vital Signs/Intake and Output Vital Signs (last 24 hours): Temp Pulse Resp BP Pulse Ox 98.5 F 84 20 127/73 96 08/09/17 07:57 08/09/17 07:57 08/09/17 07:57 08/09/17 07:57 08/09/17 07:57 Intake and Output: 08/09/17 08/09/17 06:59 18:59 Intake Total 1100 Balance 1100 - Medications Medications: Current Medications Sodium Chloride (Sodium Chloride 0.9%) 1,000 mls @ 150 mls/hr IV .Q6H40M [facility] Last Admin: 08/09/17 13:18 Dose: Not Given Piperacillin Sod/Tazobactam Sod (Zosyn 3.375 Gm Iv Premix) 3.375 gm in 50 mls @ 100 mls/hr IVPB Q6H [facility] PRN Reason: Protocol Last Admin: 08/09/17 14:51 Dose: 100 mls/hr Vancomycin/Sodium Chloride (Vancomycin 1 Gm/Ns 200 Ml) 1 gm in 200 mls @ 166.7 mls/hr IVPB Q12H [facility] PRN Reason: Protocol Stop: 08/14/17 04:01 Last Admin: 08/09/17 04:38 Dose: 166.7 mls/hr Ketorolac Tromethamine (Toradol) 30 mg IVP Q6 PRN PRN Reason: Pain, severe (8-10) Ketorolac Tromethamine (Toradol) 15 mg IVP Q6 PRN PRN Reason: Pain, moderate (4-7) Methadone HCl (Methadone) 5 mg PO ONCE ONE Stop: 08/13/17 10:01 Methadone HCl (Methadone) 10 mg PO ONCE ONE Stop: 08/12/17 10:01 Methadone HCl (Methadone) 15 mg PO ONCE ONE Stop: 08/11/17 10:01 Methadone HCl (Methadone) 20 mg PO ONCE ONE Stop: 08/10/17 10:01 Oxycodone/Acetaminophen (Percocet 5/325 Mg Tab) 1 tab PO Q6H PRN PRN Reason: Pain, moderate (4-7) Stop: 08/12/17 08:01 Pantoprazole Sodium (Protonix Inj) 40 mg IVP DAILY [facility] Last Admin: 08/09/17 10:01 Dose: 40 mg Saccharomyces Botydii (Florastor) 250 mg PO BID [facility] Last Admin: 08/09/17 10:02 Dose: 250 mg - Labs Labs: 08/09/17 00:57 08/09/17 00:57 PT 13.9 SECONDS (9.7-12.2) H 08/09/17 01:04 INR 1.2 08/09/17 01:04 APTT 36 SECONDS (21-34) H 08/09/17 01:04 - Constitutional Appears: Well - Head Exam Head Exam: ATRAUMATIC, NORMAL INSPECTION, NORMOCEPHALIC - Eye Exam Eye Exam: EOMI, Normal appearance, PERRL Pupil Exam: NORMAL ACCOMODATION, PERRL - ENT Exam ENT Exam: Mucous Membranes Moist, Normal Exam - Neck Exam Neck Exam: Full ROM, Normal Inspection. absent: Lymphadenopathy - Respiratory Exam Respiratory Exam: Clear to Ausculation Bilateral, NORMAL BREATHING PATTERN - Cardiovascular Exam Cardiovascular Exam: +S1, +S2, Murmur (heard loudest over the left sternal border ) - GI/Abdominal Exam GI & Abdominal Exam: Soft, Normal Bowel Sounds. absent: Tenderness - Extremities Exam Extremities Exam: Full ROM, Normal Capillary Refill, Normal Inspection. absent : Joint Swelling, Pedal Edema Additional comments: left upper extremity swelling. increased warmth. no drainage - Back Exam Back Exam: NORMAL INSPECTION - Neurological Exam Neurological Exam: Alert, Awake, CN II-XII Intact, Normal Gait, Oriented x3 - Psychiatric Exam Psychiatric exam: Normal Affect, Normal Mood - Skin Skin Exam: Dry, Intact, Normal Color, Warm Assessment and Plan (1) Cellulitis Assessment & Plan: plan for OR today ID (Mangia) Surgery (Carter) Cards (Angel) ECHO R/o Endocarditis Vanco/Zosyn Toradol and Percocet for pain F/U Blood and wound culture Status: Acute (2) Intravenous drug abuse Assessment & Plan: Methadone taper Status: Acute (3) Prophylactic measure Assessment & Plan: Protonix SCD Status: Acute <Carlos Welsh - Last Filed: 08/09/17 20:35> Objective - Vital Signs/Intake and Output Vital Signs (last 24 hours): Temp Pulse Resp BP Pulse Ox 98.5 F 97 H 9 L 142/65 97 08/09/17 18:45 08/09/17 18:45 08/09/17 18:45 08/09/17 18:45 08/09/17 18:45 Intake and Output: 08/09/17 08/10/17 18:59 06:59 Intake Total 1450 Balance 1450 - Medications Medications: Current Medications Sodium Chloride (Sodium Chloride 0.9%) 1,000 mls @ 150 mls/hr IV .Q6H40M [facility] Last Admin: 08/09/17 13:18 Dose: Not Given Piperacillin Sod/Tazobactam Sod (Zosyn 3.375 Gm Iv Premix) 3.375 gm in 50 mls @ 100 mls/hr IVPB Q6H [facility] PRN Reason: Protocol Last Admin: 08/09/17 14:51 Dose: 100 mls/hr Vancomycin/Sodium Chloride (Vancomycin 1 Gm/Ns 200 Ml) 1 gm in 200 mls @ 166.7 mls/hr IVPB Q12H [facility] PRN Reason: Protocol Stop: 08/14/17 04:01 Last Admin: 08/09/17 04:38 Dose: 166.7 mls/hr Lactated Ringer's (Lactated Ringer's) 1,000 mls @ 100 mls/hr IV .Q10H [facility] Ketorolac Tromethamine (Toradol) 30 mg IVP Q6 PRN PRN Reason: Pain, severe (8-10) Ketorolac Tromethamine (Toradol) 15 mg IVP Q6 PRN PRN Reason: Pain, moderate (4-7) Methadone HCl (Methadone) 5 mg PO ONCE ONE Stop: 08/13/17 10:01 Methadone HCl (Methadone) 10 mg PO ONCE ONE Stop: 08/12/17 10:01 Methadone HCl (Methadone) 15 mg PO ONCE ONE Stop: 08/11/17 10:01 Methadone HCl (Methadone) 20 mg PO ONCE ONE Stop: 08/10/17 10:01 Oxycodone/Acetaminophen (Percocet 5/325 Mg Tab) 1 tab PO Q6H PRN PRN Reason: Pain, moderate (4-7) Stop: 08/12/17 08:01 Pantoprazole Sodium (Protonix Inj) 40 mg IVP DAILY [facility] Last Admin: 08/09/17 10:01 Dose: 40 mg Saccharomyces Boulardii (Florastor) 250 mg PO BID [facility] Last Admin: 08/09/17 10:02 Dose: 250 mg - Labs Labs: 08/09/17 00:57 08/09/17 00:57 PT 13.9 SECONDS (9.7-12.2) H 08/09/17 01:04 INR 1.2 08/09/17 01:04 APTT 36 SECONDS (21-34) H 08/09/17 01:04 Attending/Attestation - Attestation I have personally seen and examined this patient.: Yes I have fully participated in the care of the patient.: Yes I have reviewed all pertinent clinical information, including history, physical exam and plan: Yes Notes (Text): 08/09/17 20:30 Patient was seen and examined at 8:20 AM Also on ROS: moved bowels yesterday and they were normal currently no complaints of pain in the left lower arm no other complaints upon full ros Also on exam: swollen left lower arm with abscess anterior aspect inferior to antecubital fossa systolic murmur heard loudest at entire left sternal border For I&D later today by surgery team F/U 2D Echo to see if evidence of endocarditis. Patient may need IVANIA if blood culture comes back negative and if 2D Echo is negative F/U Hepatitis Panel and HIV for Elevated LFTs For his history of IVD Abuse (he uses 15 bags of heroin a day with last use on Tuesday): start Methadone Taper if signs of withdrawl. F/U ID recommendation for antibiotic coverage Carlos Welsh D.O.
[2017-08-09] MEDS ORDERED: Propofol 10 mg/ml Inj (20 ML) ONE (16:26)
[2017-08-09] MEDS ORDERED: Midazolam 2 MG/2 ML VIAL ONE (16:26)
--- NOTE | 2017-08-09 17:34 | PCM.SURG1 ---
Surgeon's Initial Post Op Note - Surgeon's Notes Surgeon: Dr. Machado Pnp: PGY1, Kiel OMS3 Pre-Operative Diagnosis: Left upper extremity Abscess Operative Findings: Purulent malordus drainage. for details see op note Post-Operative Diagnosis: as above Operation Performed: Incision and Drainage of Left forearm Specimen/Specimens Removed: Culture x 2 Estimated Blood Loss: EBL {In ML}: 10 Drains Used: No Drains Date of Surgery/Procedure: 08/09/17 Time of Surgery/Procedure: 17:34
[2017-08-09] MEDS ORDERED: HYDROmorphone 1 mg/ml ISec IVP PRN (17:36)
[2017-08-09 23:25] VITALS: RESP 20
--- NOTE | 2017-08-10 00:21 | CON ---
DATE: HISTORY OF PRESENT ILLNESS: The patient is 26 years old male with active IVD, was admitted because of left forearm swelling, tenderness and redness following IVD use. The patient denies any needle sharing. The patient denies any prior cardiac infection in the past. SOCIAL HISTORY: The patient is a nonsmoker. He is a drinker and IV drug abuser. MEDICATIONS: Amiodarone 50 mg once a day, Percocet 1 tablet every 6 hours p.r.n., Protonix 40 mg intravenously once a day, normal saline at 50 mL an hour, Toradol 15 mg intravenously every 6 hours p.r.n., vancomycin 1 gm intravenously every 12 hours and Zosyn 3.375 mg intravenously every 6 hours. REVIEW OF SYSTEMS: No vomiting or diarrhea. The patient did have high grade fever. No evidence of syncope. PHYSICAL EXAMINATION: GENERAL: The patient is a young middle aged male, who does not appear to be in acute distress. VITAL SIGNS: Blood pressure 127/73, heart rate 84, temperature 98.5, earlier temperature this morning was 102.1. HEENT: Normocephalic. CHEST: Clear. HEART: S1 and S2 regular. ABDOMEN: Soft. EXTREMITIES: involving the left forearm. LABORATORY DATA: SMA-7 within normal limits, except for glucose 121 and creatinine of 0.7. Alkaline phosphate elevated at 147. INR is 1.2, PTT 36. Hemoglobin and hematocrit 11 and 31.8, white count 14.6 and platelet count 262,000. Left upper extremity CT scan revealed findings compatible with cellulitis and abscess. ASSESSMENT: 1. Left forearm abscess. 2. Active intravenous drug abuse. RECOMMENDATIONS: Continue current methadone, Toradol, IV Protonix, IV Zosyn and IV vancomycin. Obtain 12 lead EKG and transthoracic echocardiography study as well as urine for drug screen. Obtain two sets of blood cultures. Chau Ortiz MD
[2017-08-10] MEDS: Piperacill/Tazo 3.375gm in Dex 3.375 GM/50 ML BAG IVPB SCH ×4 (03:03→21:02)
[2017-08-10] MEDS: Lactated Ringer's 1,000 ML IV SCH ×3 (03:45→23:45)
[2017-08-10] MEDS: Vancomycin 1 gm/NS 200 ml 1 GM/200 ML BAG IVPB SCH ×2 (04:25→16:09)
[2017-08-10] MEDS: Sodium Chloride 0.9% 1,000 ML IV SCH ×4 (06:50→20:00)
[2017-08-10] MEDS: Oxycodone/Acetaminophen 5/325 mg Tab PO PRN ×2 (08:22→14:54)
[2017-08-10] MEDS: Saccharomyces Boulardi 250 mg Cap PO SCH ×3 (08:27→18:16)
--- NOTE | 2017-08-10 09:10 | CP.PCM.PN ---
<Negrito Martines - Last Filed: 08/10/17 16:01> Subjective - Date & Time of Evaluation Date of Evaluation: 08/10/17 Time of Evaluation: 09:07 - Subjective Subjective: Patient seen and examined at bedside Still complaining of sharp pain around I/D site States he plans on going to Detox at [facility] Located at [address] [place] [address] in [employer] [place], [place]. He has went here before for detox complains fo fevers no chills, nausea, vomiting, sob or chest pain Patient was initially refusing all test to be done but today after multiple attempts at explaining the gravity of the situation by both myself and Dr. Reina Welsh he agreed to ahve echo and get blood work Objective - Vital Signs/Intake and Output Vital Signs (last 24 hours): Temp Pulse Resp BP Pulse Ox 98.3 F 79 20 144/73 97 08/10/17 08:00 08/10/17 08:00 08/10/17 08:00 08/10/17 08:00 08/10/17 08:00 Intake and Output: 08/10/17 08/10/17 06:59 18:59 Intake Total 550 1040 Output Total 850 Balance 550 190 - Medications Medications: Current Medications Sodium Chloride (Sodium Chloride 0.9%) 1,000 mls @ 150 mls/hr IV .Q6H40M [facility] Last Admin: 08/10/17 06:50 Dose: Not Given Piperacillin Sod/Tazobactam Sod (Zosyn 3.375 Gm Iv Premix) 3.375 gm in 50 mls @ 100 mls/hr IVPB Q6H [facility] PRN Reason: Protocol Last Admin: 08/10/17 03:03 Dose: 100 mls/hr Vancomycin/Sodium Chloride (Vancomycin 1 Gm/Ns 200 Ml) 1 gm in 200 mls @ 166.7 mls/hr IVPB Q12H [facility] PRN Reason: Protocol Stop: 08/14/17 04:01 Last Admin: 08/10/17 04:25 Dose: 166.7 mls/hr Lactated Ringer's (Lactated Ringer's) 1,000 mls @ 100 mls/hr IV .Q10H [facility] Last Admin: 08/10/17 03:45 Dose: Not Given Ketorolac Tromethamine (Toradol) 30 mg IVP Q6 PRN PRN Reason: Pain, severe (8-10) Last Admin: 08/10/17 02:52 Dose: 30 mg Ketorolac Tromethamine (Toradol) 15 mg IVP Q6 PRN PRN Reason: Pain, moderate (4-7) Methadone HCl (Methadone) 5 mg PO ONCE ONE Stop: 08/13/17 10:01 Methadone HCl (Methadone) 10 mg PO ONCE ONE Stop: 08/12/17 10:01 Methadone HCl (Methadone) 15 mg PO ONCE ONE Stop: 08/11/17 10:01 Methadone HCl (Methadone) 20 mg PO ONCE ONE Stop: 08/10/17 10:01 Oxycodone/Acetaminophen (Percocet 5/325 Mg Tab) 1 tab PO Q6H PRN PRN Reason: Pain, moderate (4-7) Stop: 08/12/17 08:01 Last Admin: 08/10/17 08:22 Dose: 1 tab Pantoprazole Sodium (Protonix Inj) 40 mg IVP DAILY [facility] Last Admin: 08/10/17 08:27 Dose: 40 mg Saccharomyces Boulardii (Florastor) 250 mg PO BID [facility] Last Admin: 08/10/17 08:27 Dose: 250 mg - Labs Labs: 08/09/17 00:57 08/09/17 00:57 PT 13.9 SECONDS (9.7-12.2) H 08/09/17 01:04 INR 1.2 08/09/17 01:04 APTT 36 SECONDS (21-34) H 08/09/17 01:04 Assessment and Plan - Assessment and Plan (Free Text) Assessment: (1) Cellulitis Assessment & Plan: s/p I/D ID (Damionia) Surgery (Machado) Cards ([facility]) TTE ECHO R/o Endocarditis today - if negative get IVANIA Vanco/Zosyn Toradol and Percocet for pain F/U Blood culture wound culture gram negative aj - f/u sensitivities Hep, RPR and HIV negative Status: Acute (2) Intravenous drug abuse Assessment & Plan: Methadone taper Plans on going to Detox at [facility] Located at [address] [place] [address] in [employer] [place]. He has went here before for detox Status: Acute (3) Prophylactic measure Assessment & Plan: Protonix SCD Status: Acute <Carlos Welsh - Last Filed: 08/10/17 18:56> Objective - Vital Signs/Intake and Output Vital Signs (last 24 hours): Temp Pulse Resp BP Pulse Ox 98.2 F 65 20 120/57 L 98 08/10/17 15:00 08/10/17 15:00 08/10/17 15:00 08/10/17 15:00 08/10/17 15:00 Intake and Output: 08/10/17 08/10/17 06:59 18:59 Intake Total 550 1040 Output Total 850 Balance 550 190 - Medications Medications: Current Medications Clonidine HCl (Catapres) 0.1 mg PO BID PRN PRN Reason: Symptoms of alcohol withdrawl Last Admin: 08/10/17 11:34 Dose: 0.1 mg Sodium Chloride (Sodium Chloride 0.9%) 1,000 mls @ 150 mls/hr IV .Q6H40M [facility] Last Admin: 08/10/17 14:57 Dose: 150 mls/hr Piperacillin Sod/Tazobactam Sod (Zosyn 3.375 Gm Iv Premix) 3.375 gm in 50 mls @ 100 mls/hr IVPB Q6H [facility] PRN Reason: Protocol Last Admin: 08/10/17 14:48 Dose: 100 mls/hr Vancomycin/Sodium Chloride (Vancomycin 1 Gm/Ns 200 Ml) 1 gm in 200 mls @ 166.7 mls/hr IVPB Q12H [facility] PRN Reason: Protocol Stop: 08/14/17 04:01 Last Admin: 08/10/17 16:09 Dose: 166.7 mls/hr Lactated Ringer's (Lactated Ringer's) 1,000 mls @ 100 mls/hr IV .Q10H [facility] Last Admin: 08/10/17 14:12 Dose: Not Given Ketorolac Tromethamine (Toradol) 30 mg IVP Q6 PRN PRN Reason: Pain, severe (8-10) Last Admin: 08/10/17 18:05 Dose: 30 mg Ketorolac Tromethamine (Toradol) 15 mg IVP Q6 PRN PRN Reason: Pain, moderate (4-7) Methadone HCl (Methadone) 5 mg PO ONCE ONE Stop: 08/13/17 10:01 Methadone HCl (Methadone) 10 mg PO ONCE ONE Stop: 08/12/17 10:01 Methadone HCl (Methadone) 15 mg PO ONCE ONE Stop: 08/11/17 10:01 Oxycodone/Acetaminophen (Percocet 5/325 Mg Tab) 1 tab PO Q6H PRN PRN Reason: Pain, moderate (4-7) Stop: 08/12/17 08:01 Last Admin: 08/10/17 14:54 Dose: 1 tab Pantoprazole Sodium (Protonix Inj) 40 mg IVP DAILY [facility] Last Admin: 08/10/17 10:43 Dose: Not Given Saccharomyces Boulardii (Florastor) 250 mg PO BID [facility] Last Admin: 08/10/17 18:16 Dose: 250 mg - Labs Labs: 08/10/17 13:55 08/10/17 13:55 PT 13.9 SECONDS (9.7-12.2) H 08/09/17 01:04 INR 1.2 08/09/17 01:04 APTT 36 SECONDS (21-34) H 08/09/17 01:04 Attending/Attestation - Attestation I have personally seen and examined this patient.: Yes I have fully participated in the care of the patient.: Yes I have reviewed all pertinent clinical information, including history, physical exam and plan: Yes Notes (Text): 08/10/17 18:54 Patient was seen and examined shotrly after resident Dr. Raegan Martines Exam, assessment and plan were gone over with the resident. Assessments should include the following: Left Arm Cellulitis/Abscess Elevated LFTs Systolic Ejection Murmur (along left sternal border) Heroin Abuse F/U Blood Cultures F/U 2D Echo and consider IVANIA if needed. Carlos Welhs D.O.
--- NOTE | 2017-08-10 13:24 | CP.PCM.PN ---
Subjective - Date & Time of Evaluation Date of Evaluation: 08/10/17 Time of Evaluation: 08:00 - Subjective Subjective: events noted echo pending iv rx in progress Objective - Vital Signs/Intake and Output Vital Signs (last 24 hours): Temp Pulse Resp BP Pulse Ox 98.3 F 79 20 144/73 97 08/10/17 08:00 08/10/17 08:00 08/10/17 08:00 08/10/17 08:00 08/10/17 08:00 Intake and Output: 08/10/17 08/10/17 06:59 18:59 Intake Total 550 1040 Output Total 850 Balance 550 190 - Medications Medications: Current Medications Clonidine HCl (Catapres) 0.1 mg PO BID PRN PRN Reason: Symptoms of alcohol withdrawl Last Admin: 08/10/17 11:34 Dose: 0.1 mg Sodium Chloride (Sodium Chloride 0.9%) 1,000 mls @ 150 mls/hr IV .Q6H40M [facility] Last Admin: 08/10/17 06:50 Dose: Not Given Piperacillin Sod/Tazobactam Sod (Zosyn 3.375 Gm Iv Premix) 3.375 gm in 50 mls @ 100 mls/hr IVPB Q6H [facility] PRN Reason: Protocol Last Admin: 08/10/17 09:30 Dose: 100 mls/hr Vancomycin/Sodium Chloride (Vancomycin 1 Gm/Ns 200 Ml) 1 gm in 200 mls @ 166.7 mls/hr IVPB Q12H [facility] PRN Reason: Protocol Stop: 08/14/17 04:01 Last Admin: 08/10/17 04:25 Dose: 166.7 mls/hr Lactated Ringer's (Lactated Ringer's) 1,000 mls @ 100 mls/hr IV .Q10H [facility] Last Admin: 08/10/17 03:45 Dose: Not Given Ketorolac Tromethamine (Toradol) 30 mg IVP Q6 PRN PRN Reason: Pain, severe (8-10) Last Admin: 08/10/17 09:28 Dose: 30 mg Ketorolac Tromethamine (Toradol) 15 mg IVP Q6 PRN PRN Reason: Pain, moderate (4-7) Methadone HCl (Methadone) 5 mg PO ONCE ONE Stop: 08/13/17 10:01 Methadone HCl (Methadone) 10 mg PO ONCE ONE Stop: 08/12/17 10:01 Methadone HCl (Methadone) 15 mg PO ONCE ONE Stop: 08/11/17 10:01 Oxycodone/Acetaminophen (Percocet 5/325 Mg Tab) 1 tab PO Q6H PRN PRN Reason: Pain, moderate (4-7) Stop: 08/12/17 08:01 Last Admin: 08/10/17 08:22 Dose: 1 tab Pantoprazole Sodium (Protonix Inj) 40 mg IVP DAILY [facility] Last Admin: 08/10/17 10:43 Dose: Not Given Saccharomyces Boulardii (Florastor) 250 mg PO BID [facility] Last Admin: 08/10/17 10:43 Dose: Not Given - Labs Labs: 08/09/17 00:57 08/09/17 00:57 PT 13.9 SECONDS (9.7-12.2) H 08/09/17 01:04 INR 1.2 08/09/17 01:04 APTT 36 SECONDS (21-34) H 08/09/17 01:04 - Constitutional Appears: Non-toxic - Head Exam Head Exam: NORMOCEPHALIC - Eye Exam Eye Exam: PERRL - ENT Exam ENT Exam: Mucous Membranes Dry - Neck Exam Neck Exam: absent: Lymphadenopathy - Respiratory Exam Respiratory Exam: Decreased Breath Sounds - Cardiovascular Exam Cardiovascular Exam: REGULAR RHYTHM - GI/Abdominal Exam GI & Abdominal Exam: Distended - Rectal Exam Rectal Exam: Deferred - Exam Exam: NORMAL INSPECTION - Extremities Exam Extremities Exam: absent: Calf Tenderness, Normal Inspection, Pedal Edema - Back Exam Back Exam: absent: CVA tenderness (L), CVA tenderness (R) - Neurological Exam Neurological Exam: Alert, Awake, Oriented x3 - Psychiatric Exam Psychiatric exam: Normal Mood - Skin Skin Exam: Dry Assessment and Plan (1) Abscess Status: Acute (2) Cellulitis Status: Acute (3) Intravenous drug abuse Status: Acute - Assessment and Plan (Free Text) Assessment: s/p I and D left arm abscess r/o endocarditis cultures noted cont same IV rx for now
[2017-08-10 14:01] LABS: BASO # 0.1 K/uL (0.0-0.2); BASO % 0.5 % (0.0-2.0); EOS % 0.1 % (0.0-4.0); HEMOGLOBIN 11.5 g/dL (12.0-18.0); LYMPH % 8.1 % (20.0-40.0); MEAN CELL VOLUME 80.7 fL (80.0-94.0); MEAN CORPUSCULAR HEMOGLOBIN 27.6 pg (27.0-31.0); MEAN CORPUSCULAR HGB CONC 34.2 g/dL (33.0-37.0); MEAN PLATELET VOLUME 8.2 fL (7.2-11.7); MONO # 0.7 K/uL (0.0-0.8); NEUT # 10.3 K/uL (1.8-7.0); NEUT % 85.3 % (50.0-75.0); PLATELET COUNT 285 K/uL (130-400); RBC 4.16 Mil/uL (4.40-5.90); RED CELL DISTRIBUTION WIDTH 13.9 % (11.5-14.5); WHITE BLOOD COUNT 12.1 K/uL (4.8-10.8)
[2017-08-10 14:23] LABS: ALB/GLOB RATIO 0.8 (1.0-2.1); ALBUMIN 3.4 g/dL (3.5-5.0); ALT/SGPT 19 U/L (21-72); AST/SGOT 33 U/L (17-59); BLOOD UREA NITROGEN 14 mg/dL (9-20); CALCIUM 8.5 mg/dl (8.6-10.4); GFR AFRICAN-AMERICAN > 60; GFR NON-AFRICAN AMERICAN > 60
[2017-08-10 14:34] LABS: LYMPHOCYTE 12 % (20-40); MONOCYTE 4 % (0-10); NEUTROPHIL 84 % (50-75); PLATELET ESTIMATE NORMAL (NORMAL); TOTAL CELLS COUNTED 100
[2017-08-10 14:35] LABS: HYPOCHROMIC SLIGHT
--- NOTE | 2017-08-10 16:51 | CP.PCM.PN ---
Subjective - Date & Time of Evaluation Date of Evaluation: 08/10/17 Time of Evaluation: 10:30 - Subjective Subjective: Hand and Plastic Surgery- Dr. Machado Pt S&E at bedside this AM. Pain is moderately controlled on current pain regiment. Dressing C/D/I. Packing in place. Denies fevers, chills, chest pain, shortness of breath Objective - Vital Signs/Intake and Output Vital Signs (last 24 hours): Temp Pulse Resp BP Pulse Ox 98.3 F 79 20 144/73 97 08/10/17 08:00 08/10/17 08:00 08/10/17 08:00 08/10/17 08:00 08/10/17 08:00 Intake and Output: 08/10/17 08/10/17 06:59 18:59 Intake Total 550 1040 Output Total 850 Balance 550 190 - Medications Medications: Current Medications Clonidine HCl (Catapres) 0.1 mg PO BID PRN PRN Reason: Symptoms of alcohol withdrawl Last Admin: 08/10/17 11:34 Dose: 0.1 mg Sodium Chloride (Sodium Chloride 0.9%) 1,000 mls @ 150 mls/hr IV .Q6H40M [facility] Last Admin: 08/10/17 14:57 Dose: 150 mls/hr Piperacillin Sod/Tazobactam Sod (Zosyn 3.375 Gm Iv Premix) 3.375 gm in 50 mls @ 100 mls/hr IVPB Q6H [facility] PRN Reason: Protocol Last Admin: 08/10/17 14:48 Dose: 100 mls/hr Vancomycin/Sodium Chloride (Vancomycin 1 Gm/Ns 200 Ml) 1 gm in 200 mls @ 166.7 mls/hr IVPB Q12H [facility] PRN Reason: Protocol Stop: 08/14/17 04:01 Last Admin: 08/10/17 16:09 Dose: 166.7 mls/hr Lactated Ringer's (Lactated Ringer's) 1,000 mls @ 100 mls/hr IV .Q10H [facility] Last Admin: 08/10/17 14:12 Dose: Not Given Ketorolac Tromethamine (Toradol) 30 mg IVP Q6 PRN PRN Reason: Pain, severe (8-10) Last Admin: 08/10/17 09:28 Dose: 30 mg Ketorolac Tromethamine (Toradol) 15 mg IVP Q6 PRN PRN Reason: Pain, moderate (4-7) Methadone HCl (Methadone) 5 mg PO ONCE ONE Stop: 08/13/17 10:01 Methadone HCl (Methadone) 10 mg PO ONCE ONE Stop: 08/12/17 10:01 Methadone HCl (Methadone) 15 mg PO ONCE ONE Stop: 08/11/17 10:01 Oxycodone/Acetaminophen (Percocet 5/325 Mg Tab) 1 tab PO Q6H PRN PRN Reason: Pain, moderate (4-7) Stop: 08/12/17 08:01 Last Admin: 08/10/17 14:54 Dose: 1 tab Pantoprazole Sodium (Protonix Inj) 40 mg IVP DAILY [facility] Last Admin: 08/10/17 10:43 Dose: Not Given Saccharomyces Boulardii (Florastor) 250 mg PO BID [facility] Last Admin: 08/10/17 10:43 Dose: Not Given - Labs Labs: 08/10/17 13:55 08/10/17 13:55 PT 13.9 SECONDS (9.7-12.2) H 08/09/17 01:04 INR 1.2 08/09/17 01:04 APTT 36 SECONDS (21-34) H 08/09/17 01:04 - Constitutional Appears: Non-toxic, No Acute Distress - Head Exam Head Exam: ATRAUMATIC - Eye Exam Eye Exam: EOMI - Respiratory Exam Respiratory Exam: NORMAL BREATHING PATTERN. absent: Accessory Muscle Use, Respiratory Distress - Cardiovascular Exam Cardiovascular Exam: +S1, +S2. absent: Bradycardia, Tachycardia - GI/Abdominal Exam GI & Abdominal Exam: Soft. absent: Guarding, Rigid, Tenderness - Extremities Exam Additional comments: LUE Dressing C/D/I in place - Neurological Exam Neurological Exam: Alert, Awake, Oriented x3 - Skin Skin Exam: Intact, Warm Assessment and Plan - Assessment and Plan (Free Text) Assessment: 26M s/p incision and drainage of LUE abscess 2/2 IVDA Plan: - Plan for packing change - local wound care - IV ABx - plan for IVANIA tomorrow by cardiology - pain control PRN - encourage ambulation - medical management per primary team - discussed w/ Dr[facility] Machado [facility]
--- NOTE | 2017-08-10 19:32 | CARD ---
APPROVED REPORT EXAM: Two-dimensional and M-mode echocardiogram with Doppler and color Doppler. Other Information Quality : GoodRhythm : INDICATION Infection:Rule out subacute bacterial endocarditis 2D DIMENSIONS IVSd0.9 (0.7-1.1cm)LVDd6.1 (3.9-5.9cm) PWd1.0 (0.7-1.1cm)LVDs4.0 (2.5-4.0cm) FS (%) 34.1 %LVEF (%)62.1 (>50%) Mitral Valve MV E Lnynaerp42.1cm/sMV A Eogzpsjo39.4cm/sE/A ratio1.4 TDI E/Lateral E'0.0E/Medial E'0.0 Tricuspid Valve TR Peak [id number]/sTR Peak Gr.[id number] LEFT VENTRICLE The Left Ventricle is borderline dilated. There is normal left ventricular wall thickness. Left ventricle systolic function is normal. The Ejection Fraction is 60-65%. There is normal LV segmental wall motion. The left ventricular diastolic function is normal. There is no ventricular septal defect visualized. RIGHT VENTRICLE The right ventricle is normal size. The right ventricular systolic function is normal. ATRIA The left atrium is mildly dilated. The right atrium size is normal. AORTIC VALVE The aortic valve is tri-cuspid. The aortic valve is normal in structure. No aortic regurgitation is present. There is no aortic valvular stenosis. MITRAL VALVE The mitral valve is normal in structure. There is no evidence of mitral valve prolapse. Mitral regurgitation is trace. TRICUSPID VALVE The tricuspid valve is normal in structure. There is trace tricuspid regurgitation. Right ventricular systolic pressure is estimated at less than 30 mmHg. There is no pulmonary hypertension. PULMONIC VALVE The pulmonary valve is normal in structure. There is trace pulmonic valvular regurgitation. GREAT VESSELS The aortic root is normal in size. The ascending aorta is normal in size. The IVC is normal in size and collapses >50% with inspiration. PERICARDIAL EFFUSION There is a trace circumferential pericardial effusion. <Conclusion> Left ventricle systolic function is normal. The Ejection Fraction is 60-65%. The left ventricular diastolic function is normal. Mitral regurgitation is trace. There is a trace circumferential pericardial effusion.
--- NOTE | 2017-08-10 23:00 | PN ---
DATE: 08/10/2017 SUBJECTIVE: The patient underwent incision and drainage of the left forearm abscess. He denies any chest pain or shortness of breath. PHYSICAL EXAMINATION: VITAL SIGNS: Blood pressure 120/67, heart rate 65, temperature 98.2, respirations 20. HEENT: Normocephalic. CHEST: Clear. HEART: S1 and S2, regular. EXTREMITIES: No pedal edema. LABORATORY DATA: Hemoglobin and hematocrit 11.5 and 33.6. White count 12.1, platelet count . Today's SMA-7 is within normal limits except for glucose of 125 and creatinine of 0.7. Blood culture negative in the last 24 hours. ASSESSMENT: 1. Status post incision and drainage of left forearm abscess. 2. Rule out bacterial endocarditis with the tricuspid valve. RECOMMENDATIONS: Continue current clonidine, methadone, IV Protonix, Percocet, and IV vancomycin with IV Zosyn. We will keep the patient n.p.o. starting midnight for the OR tomorrow around 1 p.m. Chau Ortiz MD
[2017-08-11] MEDS: Sodium Chloride 0.9% 1,000 ML IV SCH (02:25)
[2017-08-11] MEDS: Piperacill/Tazo 3.375gm in Dex 3.375 GM/50 ML BAG IVPB SCH ×4 (03:20→22:00)
[2017-08-11] MEDS: Vancomycin 1 gm/NS 200 ml 1 GM/200 ML BAG IVPB SCH ×3 (04:00→18:24)
[2017-08-11 04:45] LABS: BASO # 0.1 K/uL (0.0-0.2); BASO % 0.7 % (0.0-2.0); EOS # 0.1 K/uL (0.0-0.7); EOS % 1.8 % (0.0-4.0); HEMOGLOBIN 9.2 g/dL (12.0-18.0); LYMPH # 1.5 K/uL (1.0-4.3); LYMPH % 21.3 % (20.0-40.0); MEAN CELL VOLUME 81.5 fL (80.0-94.0); MEAN CORPUSCULAR HEMOGLOBIN 27.2 pg (27.0-31.0); MEAN CORPUSCULAR HGB CONC 33.4 g/dL (33.0-37.0); MEAN PLATELET VOLUME 8.1 fL (7.2-11.7); MONO # 0.5 K/uL (0.0-0.8); MONO % 7.5 % (0.0-10.0); NEUT # 4.8 K/uL (1.8-7.0); NEUT % 68.7 % (50.0-75.0); RBC 3.39 Mil/uL (4.40-5.90); RED CELL DISTRIBUTION WIDTH 13.4 % (11.5-14.5)
[2017-08-11 05:12] LABS: ALB/GLOB RATIO 0.7 (1.0-2.1); ALBUMIN 2.6 g/dL (3.5-5.0); ALT/SGPT 14 U/L (21-72); AST/SGOT 19 U/L (17-59); BLOOD UREA NITROGEN 11 mg/dL (9-20); CALCIUM 7.7 mg/dl (8.6-10.4); GFR AFRICAN-AMERICAN > 60; GFR NON-AFRICAN AMERICAN > 60
[2017-08-11] MEDS: Saccharomyces Boulardi 250 mg Cap PO SCH ×2 (09:18→18:23)
--- NOTE | 2017-08-11 09:38 | CP.PCM.PN ---
Subjective - Date & Time of Evaluation Date of Evaluation: 08/11/17 Time of Evaluation: 09:35 - Subjective Subjective: patient seen and examined at bedside still complaining of pain around the I/D site No fevers or chills No chest pain or palpitations Objective - Vital Signs/Intake and Output Vital Signs (last 24 hours): Temp Pulse Resp BP Pulse Ox 98.5 F 62 20 130/76 96 08/11/17 08:00 08/11/17 08:00 08/11/17 08:00 08/11/17 08:00 08/11/17 08:00 Intake and Output: 08/11/17 08/11/17 06:59 18:59 Intake Total 1950 Output Total 650 Balance 1300 - Medications Medications: Current Medications Clonidine HCl (Catapres) 0.1 mg PO BID PRN PRN Reason: Symptoms of alcohol withdrawl Last Admin: 08/11/17 09:18 Dose: 0.1 mg Piperacillin Sod/Tazobactam Sod (Zosyn 3.375 Gm Iv Premix) 3.375 gm in 50 mls @ 100 mls/hr IVPB Q6H [facility] PRN Reason: Protocol Last Admin: 08/11/17 09:19 Dose: 100 mls/hr Lactated Ringer's (Lactated Ringer's) 1,000 mls @ 100 mls/hr IV .Q10H [facility] Last Admin: 08/10/17 23:45 Dose: Not Given Vancomycin/Sodium Chloride (Vancomycin 1 Gm/Ns 200 Ml) 1 gm in 200 mls @ 166.7 mls/hr IVPB Q12H [facility] PRN Reason: Protocol Stop: 08/14/17 06:01 Last Admin: 08/11/17 06:05 Dose: 166.7 mls/hr Ketorolac Tromethamine (Toradol) 30 mg IVP Q6 PRN PRN Reason: Pain, severe (8-10) Last Admin: 08/11/17 00:45 Dose: 30 mg Ketorolac Tromethamine (Toradol) 15 mg IVP Q6 PRN PRN Reason: Pain, moderate (4-7) Methadone HCl (Methadone) 5 mg PO ONCE ONE Stop: 08/13/17 10:01 Methadone HCl (Methadone) 10 mg PO ONCE ONE Stop: 08/12/17 10:01 Methadone HCl (Methadone) 15 mg PO ONCE ONE Stop: 08/11/17 10:01 Last Admin: 08/11/17 09:18 Dose: 15 mg Oxycodone/Acetaminophen (Percocet 5/325 Mg Tab) 1 tab PO Q6H PRN PRN Reason: Pain, moderate (4-7) Stop: 08/12/17 08:01 Last Admin: 08/10/17 14:54 Dose: 1 tab Pantoprazole Sodium (Protonix Inj) 40 mg IVP DAILY [facility] Last Admin: 08/11/17 09:18 Dose: 40 mg Saccharomyces Boulardii (Florastor) 250 mg PO BID [facility] Last Admin: 08/11/17 09:18 Dose: 250 mg - Labs Labs: 08/11/17 04:36 08/11/17 04:36 PT 13.9 SECONDS (9.7-12.2) H 08/09/17 01:04 INR 1.2 08/09/17 01:04 APTT 36 SECONDS (21-34) H 08/09/17 01:04 - Additional Findings Additional findings: - Constitutional Appears: Non-toxic, No Acute Distress - Head Exam Head Exam: ATRAUMATIC - Eye Exam Eye Exam: EOMI - Respiratory Exam Respiratory Exam: NORMAL BREATHING PATTERN. absent: Accessory Muscle Use, Respiratory Distress - Cardiovascular Exam Cardiovascular Exam: +S1, +S2. absent: Bradycardia, Tachycardia - GI/Abdominal Exam GI & Abdominal Exam: Soft. absent: Guarding, Rigid, Tenderness - Extremities Exam Additional comments: LUE Dressing C/D/I in place - Neurological Exam Neurological Exam: Alert, Awake, Oriented x3 - Skin Skin Exam: Intact, Warm Assessment and Plan (1) Abscess Assessment & Plan: Surgery (Machado) ID (Tiesha) s/p ID packing changes and local wound care per surgery Toradol/Percocet for pain No Morphine as patient is w/d from Heroin Vanco/Zosyn Vanco lvl 5.3 - continue current dosing Wound culture Enterobacter and GBS. Senstive to cipro with ESTHER of 0.25 - will follow ID reccs Blood culture negative x 48h Status: Acute (2) Heroin use disorder, severe Assessment & Plan: Methadone taper Plans on going to Detox at [facility] Located at [address] [place] [address] in [place], [place]. He has went here before for detox Status: Acute (3) Murmur Assessment & Plan: Cards (Angel) Given History of IVDU and new murmur must consider Endocarditis TTE unremarkable IVANIA today at 1pm Blood culture negative x 48 H Status: Acute (4) Prophylactic measure Assessment & Plan: SCD Protonix 40 IV QD Status: Acute
--- NOTE | 2017-08-11 10:32 | CP.PCM.PN ---
Subjective - Date & Time of Evaluation Date of Evaluation: 08/11/17 Time of Evaluation: 06:00 - Subjective Subjective: Surgery- Dr. Machado Patient seen and examined at bedside this AM. Complaining of continued pain in arm however better than before. Dressing changed at bedside. Packing was removed and pt vehemently denied new packing placed. Wound washed w/ iodine and dry dressing was placed on top. Objective - Vital Signs/Intake and Output Vital Signs (last 24 hours): Temp Pulse Resp BP Pulse Ox 98.5 F 62 20 130/76 96 08/11/17 08:00 08/11/17 08:00 08/11/17 08:00 08/11/17 08:00 08/11/17 08:00 Intake and Output: 08/11/17 08/11/17 06:59 18:59 Intake Total 1950 Output Total 650 Balance 1300 - Medications Medications: Current Medications Clonidine HCl (Catapres) 0.1 mg PO BID PRN PRN Reason: Symptoms of alcohol withdrawl Last Admin: 08/11/17 09:18 Dose: 0.1 mg Piperacillin Sod/Tazobactam Sod (Zosyn 3.375 Gm Iv Premix) 3.375 gm in 50 mls @ 100 mls/hr IVPB Q6H [facility] PRN Reason: Protocol Last Admin: 08/11/17 09:19 Dose: 100 mls/hr Vancomycin/Sodium Chloride (Vancomycin 1 Gm/Ns 200 Ml) 1 gm in 200 mls @ 166.7 mls/hr IVPB Q12H [facility] PRN Reason: Protocol Stop: 08/14/17 06:01 Last Admin: 08/11/17 06:05 Dose: 166.7 mls/hr Ketorolac Tromethamine (Toradol) 30 mg IVP Q6 PRN PRN Reason: Pain, severe (8-10) Last Admin: 08/11/17 00:45 Dose: 30 mg Ketorolac Tromethamine (Toradol) 15 mg IVP Q6 PRN PRN Reason: Pain, moderate (4-7) Methadone HCl (Methadone) 5 mg PO ONCE ONE Stop: 08/13/17 10:01 Methadone HCl (Methadone) 10 mg PO ONCE ONE Stop: 08/12/17 10:01 Oxycodone/Acetaminophen (Percocet 5/325 Mg Tab) 1 tab PO Q6H PRN PRN Reason: Pain, moderate (4-7) Stop: 08/12/17 08:01 Last Admin: 08/10/17 14:54 Dose: 1 tab Pantoprazole Sodium (Protonix Inj) 40 mg IVP DAILY [facility] Last Admin: 08/11/17 09:18 Dose: 40 mg Saccharomyces Boulardii (Florastor) 250 mg PO BID [facility] Last Admin: 08/11/17 09:18 Dose: 250 mg - Labs Labs: 08/11/17 04:36 08/11/17 04:36 PT 13.9 SECONDS (9.7-12.2) H 08/09/17 01:04 INR 1.2 08/09/17 01:04 APTT 36 SECONDS (21-34) H 08/09/17 01:04 - Constitutional Appears: Non-toxic, No Acute Distress - Head Exam Head Exam: ATRAUMATIC - Eye Exam Eye Exam: EOMI - Respiratory Exam Respiratory Exam: NORMAL BREATHING PATTERN. absent: Accessory Muscle Use, Respiratory Distress - Cardiovascular Exam Cardiovascular Exam: +S1, +S2. absent: Bradycardia, Tachycardia - GI/Abdominal Exam GI & Abdominal Exam: Soft. absent: Firm, Guarding, Rigid, Tenderness - Extremities Exam Additional comments: LUE incision x2. Packing removed and wound irraged w/ iodine. Pt refused packing to be placed. Palpable radial pulses - Neurological Exam Neurological Exam: Alert, Awake, Oriented x3 - Skin Skin Exam: Warm Assessment and Plan - Assessment and Plan (Free Text) Assessment: 26M s/p incision and drainage of LUE abscess Plan: - dressing changed, packing removed, patient refused any other packing to be placed - patient refused further care for packing changes - local wound care; dry dressing 4x4 and Krilex on top - medical management per primary team - no further surgical intervention at this time - re-consult as needed PGY1
[2017-08-11] MEDS ORDERED: Lidocaine 4% (Laryng-O-Jet) Kit MM ONE (11:46)
--- NOTE | 2017-08-11 11:56 | OP ---
PROCEDURE DATE: 08/09/2017 SURGEON: Chantel Machado MD MEAT TRIMMER: Merchant Willian DO PREOPERATIVE DIAGNOSIS: Left proximal forearm abscess. POSTOPERATIVE DIAGNOSIS: Left proximal forearm abscess. TYPE OF ANESTHESIA: General endotracheal anesthesia. PROCEDURE: I and D of left proximal arm abscess with subcutaneous and subfascial components TOURNIQUET TIME: 25 minutes. COUNTS: Lap, sponge and needle counts were correct at the end of the case. CONDITION: The patient was stable upon discharge to recovery. INDICATIONS FOR SURGERY: The patient is a 26-year-old IVDA, who sustained the abscess after injections into his forearm. Over the last few days, cellulitis has gotten worse. He was admitted to the hospital and was started on IV antibiotics. After two days, the abscess consolidated and is now drainable, so the patient is here for I and D. DESCRIPTION OF PROCEDURE: The patient was identified in the holding area. The left arm was marked. He was then brought into the operating room and laid supine on the operating room table. Once general anesthesia was induced, the left arm was prepped and draped in the usual sterile fashion with arm elevated without exsanguinating. Tourniquet was inflated to 250 mmHg for a total of 25 minutes. Making a V-shaped incision on the lateral aspect of the proximal forearm approximately 4 cm in length with 2 cm limbs each, the incision was taken down through skin and dermis. Immediately, purulent discharge was expressed from the cavity. Two separate cultures were sent for aerobic and anaerobic cultures. The cavity itself was approximately 10 cm x 8 cm in size. There was persistent purulent drainage with compression along the middle forearm and a second counterincision was made at this level, approximately 2 cm in length. The muscle fascia was incised at this location and a small amount of purulence was noted. The muscle fascia was divided for a length of 3 cm. The two subcutaneous areas communicated. Once no further fluctuant areas were noted, the wounds were copiously irrigated with 500 mL of normal saline. The wounds were then packed using iodoform packing. A 4x4 dressings, ABD, and an Abner wrap was then applied to secure the dressings in place. The patient tolerated the procedure well, was extubated, transferred to a stretcher and brought to the recovery room in stable condition. Chantel Machado MD [facility] # [id number] DEJON
[2017-08-11] MEDS ORDERED: Propofol 10 mg/ml Inj (20 ML) ONE ×2 (12:57)
[2017-08-11] MEDS ORDERED: Phenylephrine 10 mg/ml Inj ONE (12:57)
[2017-08-11] MEDS ORDERED: ePHEDrine 50 mg/ml Inj ONE (13:02)
--- NOTE | 2017-08-11 19:03 | CP.PCM.PN ---
Subjective - Date & Time of Evaluation Date of Evaluation: 08/11/17 Time of Evaluation: 10:00 - Subjective Subjective: events noted blood + for strep B and wound showing strep and enterobacter s/p IVANIA results pending fluroquinolone resistance can occur while on rx with quinolones for grp B strep and PCN remains drug of choice OK to d/c Vanco Cont Zosyn for now Objective - Vital Signs/Intake and Output Vital Signs (last 24 hours): Temp Pulse Resp BP Pulse Ox 98.2 F 66 20 126/58 L 96 08/11/17 15:41 08/11/17 15:41 08/11/17 15:41 08/11/17 15:41 08/11/17 15:41 Intake and Output: 08/11/17 08/12/17 18:59 06:59 Intake Total 300 Balance 300 - Medications Medications: Current Medications Clonidine HCl (Catapres) 0.1 mg PO BID PRN PRN Reason: Symptoms of alcohol withdrawl Last Admin: 08/11/17 09:18 Dose: 0.1 mg Piperacillin Sod/Tazobactam Sod (Zosyn 3.375 Gm Iv Premix) 3.375 gm in 50 mls @ 100 mls/hr IVPB Q6H [facility] PRN Reason: Protocol Last Admin: 08/11/17 16:10 Dose: 100 mls/hr Vancomycin/Sodium Chloride (Vancomycin 1 Gm/Ns 200 Ml) 1 gm in 200 mls @ 166.7 mls/hr IVPB Q12H [facility] PRN Reason: Protocol Stop: 08/14/17 06:01 Last Admin: 08/11/17 18:24 Dose: 166.7 mls/hr Ketorolac Tromethamine (Toradol) 30 mg IVP Q6 PRN PRN Reason: Pain, severe (8-10) Last Admin: 08/11/17 00:45 Dose: 30 mg Ketorolac Tromethamine (Toradol) 15 mg IVP Q6 PRN PRN Reason: Pain, moderate (4-7) Methadone HCl (Methadone) 5 mg PO ONCE ONE Stop: 08/13/17 10:01 Methadone HCl (Methadone) 10 mg PO ONCE ONE Stop: 08/12/17 10:01 Oxycodone/Acetaminophen (Percocet 5/325 Mg Tab) 1 tab PO Q6H PRN PRN Reason: Pain, moderate (4-7) Stop: 08/12/17 08:01 Last Admin: 08/10/17 14:54 Dose: 1 tab Pantoprazole Sodium (Protonix Inj) 40 mg IVP DAILY [facility] Last Admin: 08/11/17 09:18 Dose: 40 mg Saccharomyces Boulardii (Florastor) 250 mg PO BID [facility] Last Admin: 08/11/17 18:23 Dose: 250 mg - Labs Labs: 08/11/17 04:36 08/11/17 04:36 PT 13.9 SECONDS (9.7-12.2) H 08/09/17 01:04 INR 1.2 08/09/17 01:04 APTT 36 SECONDS (21-34) H 08/09/17 01:04 Assessment and Plan (1) Abscess Status: Acute (2) Cellulitis Status: Acute (3) Intravenous drug abuse Status: Acute
--- NOTE | 2017-08-11 19:58 | PN ---
DATE: SUBJECTIVE: The patient denies any chest pain or shortness of breath. PHYSICAL EXAMINATION: VITAL SIGNS: Blood pressure 130/76, heart rate 62, temperature 98.5, respirations 20. HEENT: Normocephalic. CHEST: Clear. HEART: S1 and S2, regular. EXTREMITIES: No edema. Dressings applied to the left forearm. LABORATORY DATA: Hemoglobin and hematocrit 9.2 and 27.6. White count and platelet count are within normal limits. SMA-7 is within normal limit except for creatinine 0.7. ASSESSMENT: 1. Left forearm abscess, status post incision and drainage. 2. Rule out bacterial endocarditis. RECOMMENDATIONS: Continue current clonidine, methadone, Protonix, IV vancomycin, IV Zosyn. The patient will undergo transesophageal echocardiographic study. The procedure and its risks were explained to the patient, who understood and agreed for the procedure. Chau Ortiz MD
[2017-08-11] MEDS: Oxycodone/Acetaminophen 5/325 mg Tab PO PRN (20:12)
--- NOTE | 2017-08-11 21:03 | CARD ---
APPROVED REPORT EXAM: Two-dimensional and M-mode echocardiogram with Doppler and color Doppler. INDICATION Infection : Rule out subacute bacterial endocarditis Reason For Test : Rule out endocarditis. PROCEDURE After obtaining informed consent, patient underwent transesophageal echo in the [facility] [employer]. Type of Sedation : Conscious Sedation Sedation was provided by anesthesiologist. Sedation was achieved with intravenously. Transesophageal probe was inserted and advanced into esophagus without difficulty. The IVANIA was performed without complications. Throughout the procedure, the blood pressure, pulse oximetry, cardiac rhythm, and rate were monitored. The patient tolerated the procedure without adverse effects. Recovery from conscious sedation was uneventful and vital signs were stable. LEFT VENTRICLE The left ventricle is normal size. There is normal left ventricular wall thickness. The left ventricular function is normal. The left ventricular ejection fraction is within the normal range. There is normal LV segmental wall motion. RIGHT VENTRICLE The right ventricle is normal size. There is normal right ventricular wall thickness. The right ventricular systolic function is normal. ATRIA The left atrium size is normal. The right atrium size is normal. AORTIC VALVE The aortic valve is normal in structure. No aortic regurgitation is present. MITRAL VALVE The mitral valve is normal in structure. There is no mitral valve stenosis. Mitral regurgitation is trace. TRICUSPID VALVE The tricuspid valve is normal in structure. There is trace tricuspid regurgitation. <Conclusion> No Valvular vegitation noted
[2017-08-12] MEDS: Piperacill/Tazo 3.375gm in Dex 3.375 GM/50 ML BAG IVPB SCH ×4 (03:10→21:24)
[2017-08-12] MEDS: Oxycodone/Acetaminophen 5/325 mg Tab PO PRN ×3 (06:49→21:26)
[2017-08-12 08:14] LABS: BASO # 0.1 K/uL (0.0-0.2); BASO % 1.5 % (0.0-2.0); EOS # 0.1 K/uL (0.0-0.7); EOS % 2.7 % (0.0-4.0); HEMOGLOBIN 10.9 g/dL (12.0-18.0); LYMPH # 1.4 K/uL (1.0-4.3); LYMPH % 27.6 % (20.0-40.0); MEAN CELL VOLUME 81.6 fL (80.0-94.0); MEAN CORPUSCULAR HEMOGLOBIN 27.7 pg (27.0-31.0); MONO # 0.4 K/uL (0.0-0.8); NEUT # 3.1 K/uL (1.8-7.0); NEUT % 60.2 % (50.0-75.0); RBC 3.92 Mil/uL (4.40-5.90); WHITE BLOOD COUNT 5.1 K/uL (4.8-10.8)
[2017-08-12 08:24] LABS: ALB/GLOB RATIO 0.8 (1.0-2.1); ALBUMIN 3.1 g/dL (3.5-5.0); ALT/SGPT 21 U/L (21-72); AST/SGOT 24 U/L (17-59); BLOOD UREA NITROGEN 12 mg/dL (9-20); CALCIUM 8.5 mg/dl (8.6-10.4); GFR AFRICAN-AMERICAN > 60; GFR NON-AFRICAN AMERICAN > 60
[2017-08-12 09:01] LABS: BARBITURATES, UR NEGATIVE (NEGATIVE); BENZODIAZEPINES, UR NEGATIVE (NEGATIVE)
[2017-08-12 09:24] LABS: OPIATES, UR POSITIVE (NEGATIVE)
[2017-08-12] MEDS: Saccharomyces Boulardi 250 mg Cap PO SCH ×2 (09:31→17:55)
[2017-08-12 09:37] LABS: PHENCYCLIDINE, UR NEGATIVE (NEGATIVE)
[2017-08-12] MEDS ORDERED: Oxycodone/Acetaminophen 5/325 mg Tab PO PRN (13:24)
--- NOTE | 2017-08-12 17:42 | CP.PCM.PN ---
<StevenOlivemarta Mendez - Last Filed: 08/12/17 17:47> Subjective - Date & Time of Evaluation Date of Evaluation: 08/12/17 Time of Evaluation: 07:50 - Subjective Subjective: Medicine progress note ( Dr. Yobany Welsh' service) Patient was seen and examined at bedside. Patient reports that he is doing well and denies any acute issues. Patient denies fever, chills, nausea, vomiting but does complaint of left arm pain appropriate due to left arm abscess. Objective - Vital Signs/Intake and Output Vital Signs (last 24 hours): Temp Pulse Resp BP Pulse Ox 98.2 F 63 20 127/61 98 08/12/17 08:13 08/12/17 08:13 08/12/17 08:13 08/12/17 08:13 08/12/17 08:13 Intake and Output: 08/12/17 08/12/17 06:59 18:59 Intake Total 650 Output Total 400 Balance 250 - Medications Medications: Current Medications Clonidine HCl (Catapres) 0.1 mg PO BID PRN PRN Reason: Symptoms of alcohol withdrawl Last Admin: 08/11/17 09:18 Dose: 0.1 mg Piperacillin Sod/Tazobactam Sod (Zosyn 3.375 Gm Iv Premix) 3.375 gm in 50 mls @ 100 mls/hr IVPB Q6H [facility] PRN Reason: Protocol Last Admin: 08/12/17 15:00 Dose: 100 mls/hr Ketorolac Tromethamine (Toradol) 15 mg IVP Q6 PRN PRN Reason: Pain, Mild (1-3) Ketorolac Tromethamine (Toradol) 30 mg IVP Q6 PRN PRN Reason: Pain, moderate (4-7) Methadone HCl (Methadone) 5 mg PO ONCE ONE Stop: 08/13/17 10:01 Oxycodone/Acetaminophen (Percocet 5/325 Mg Tab) 1 tab PO Q6H PRN PRN Reason: Pain, severe (8-10) Stop: 08/15/17 13:28 Last Admin: 08/12/17 14:57 Dose: 1 tab Pantoprazole Sodium (Protonix Inj) 40 mg IVP DAILY [facility] Last Admin: 08/12/17 09:31 Dose: 40 mg Saccharomyces Boulardii (Florastor) 250 mg PO BID [facility] Last Admin: 08/12/17 09:31 Dose: 250 mg - Labs Labs: 08/12/17 07:59 08/12/17 07:59 PT 13.9 SECONDS (9.7-12.2) H 08/09/17 01:04 INR 1.2 08/09/17 01:04 APTT 36 SECONDS (21-34) H 08/09/17 01:04 - Constitutional Appears: Well, No Acute Distress - Head Exam Head Exam: ATRAUMATIC, NORMAL INSPECTION - Eye Exam Eye Exam: EOMI, Normal appearance - ENT Exam ENT Exam: Mucous Membranes Moist - Respiratory Exam Respiratory Exam: Clear to Ausculation Bilateral, NORMAL BREATHING PATTERN. absent: Prolonged Expiratory Phase, Rhonchi, Wheezes, Respiratory Distress, Stridor - Cardiovascular Exam Cardiovascular Exam: REGULAR RHYTHM, +S1, +S2, Murmur Additional comments: Ejection systolic at left sternal border - GI/Abdominal Exam GI & Abdominal Exam: Soft, Normal Bowel Sounds. absent: Distended, Firm, Guarding, Rigid, Tenderness - Extremities Exam Extremities Exam: Normal Inspection. absent: Calf Tenderness, Pedal Edema - Neurological Exam Neurological Exam: Alert, Awake, Oriented x3 - Psychiatric Exam Psychiatric exam: Normal Affect, Normal Mood - Skin Skin Exam: Normal Color Assessment and Plan (1) Left arm cellulitis Assessment & Plan: Consultations: Hand Surgery, Dr. Machado---> Help appreciated * S/p Incision and Drainage of Left forearm POD # 3 * No further surgical intervention at this point Infectious disease, Dr. Motley---> Help appreciated * Management as per recommendation Imaging: * Upper extremity CT: Limitations: Suboptimal positioning. Streak artifact - mild. Bones/joints: No acute fracture. No dislocation. No definite cortical destruction. Soft tissues: Mild skin thickening. Moderate to extensive stranding within subcutaneous tissues. 5.7 x 3.1 x 8.1 cm peripherally enhancing fluid collection within subcutaneous tissues along proximal forearm contiguous with or extending into adjacent musculature. IMPRESSION: 1. Findings compatible with cellulitis and abscess Labs: Left hand wound culture: + for S. Agalactiae Blood culture negative Medications: * Zosyn 3.3175gn IV Q6H * Florastor 250mg PO BID * Toradol 15mg and 30mg IV Q6H PRN * Percocet 1 tab PO Q6H PRN Status: Acute (2) Systolic ejection murmur Assessment & Plan: R/o out endocarditis due to Hx of IV drug abuse Consultation: Printing Technician, Dr. Ortiz * Management as per recommendation Imaging: Echocardiogram (08/11/17): No vavular vegetation, please refer to EMR for complete impression IVANIA : Negative Labs: * Blood cultures negative Status: Acute (3) IV drug abuse Assessment & Plan: Methadone taper Plans on going to Detox at [facility] Located at [address] [place] [address] in [place], [place]. He has went here before for detox Status: Acute (4) Prophylactic measure Assessment & Plan: GI: Protonix 40mg IV daily DVT: SCD Disposition: Patient needs 7 days of IV antibiotics can be discharge with Levaquin 750mg PO BID ( FOR 7 DAYS) All plans and management discussed with Dr. Yobany Welsh Status: Acute <Carlos Welsh - Last Filed: 08/12/17 18:53> Objective - Vital Signs/Intake and Output Vital Signs (last 24 hours): Temp Pulse Resp BP Pulse Ox 98.2 F 63 20 127/61 98 08/12/17 08:13 08/12/17 08:13 08/12/17 08:13 08/12/17 08:13 08/12/17 08:13 Intake and Output: 08/12/17 08/12/17 06:59 18:59 Intake Total 650 Output Total 400 Balance 250 - Medications Medications: Current Medications Clonidine HCl (Catapres) 0.1 mg PO BID PRN PRN Reason: Symptoms of alcohol withdrawl Last Admin: 08/11/17 09:18 Dose: 0.1 mg Piperacillin Sod/Tazobactam Sod (Zosyn 3.375 Gm Iv Premix) 3.375 gm in 50 mls @ 100 mls/hr IVPB Q6H [facility] PRN Reason: Protocol Last Admin: 08/12/17 15:00 Dose: 100 mls/hr Ketorolac Tromethamine (Toradol) 15 mg IVP Q6 PRN PRN Reason: Pain, Mild (1-3) Ketorolac Tromethamine (Toradol) 30 mg IVP Q6 PRN PRN Reason: Pain, moderate (4-7) Methadone HCl (Methadone) 5 mg PO ONCE ONE Stop: 08/13/17 10:01 Oxycodone/Acetaminophen (Percocet 5/325 Mg Tab) 1 tab PO Q6H PRN PRN Reason: Pain, severe (8-10) Stop: 08/15/17 13:28 Last Admin: 08/12/17 14:57 Dose: 1 tab Pantoprazole Sodium (Protonix Inj) 40 mg IVP DAILY [facility] Last Admin: 08/12/17 09:31 Dose: 40 mg Saccharomyces Boulardii (Florastor) 250 mg PO BID [facility] Last Admin: 08/12/17 17:55 Dose: 250 mg - Labs Labs: 08/12/17 07:59 08/12/17 07:59 PT 13.9 SECONDS (9.7-12.2) H 08/09/17 01:04 INR 1.2 08/09/17 01:04 APTT 36 SECONDS (21-34) H 08/09/17 01:04 Attending/Attestation - Attestation I have personally seen and examined this patient.: Yes I have fully participated in the care of the patient.: Yes I have reviewed all pertinent clinical information, including history, physical exam and plan: Yes Notes (Text): 08/12/17 18:51 Patient was seen and examined at 8:00 AM Exam, assessment and plan were gone over with the resident. I discussed patient with JUNIOR Motley and plan is for a total of 7 days IV antibiotics followed by 7 days of PO antibiotic: Zosyn through 08/15/17 and then Levoquin 750 mg PO 1x/day from 08/16/17 through 08/22. Carlos Welsh D.O.
--- NOTE | 2017-08-12 18:02 | PN ---
DATE: 08/12/2017 SUBJECTIVE: The patient is experiencing left forearm pain. He denies any chest pain. PHYSICAL EXAMINATION: VITAL SIGNS: Blood pressure 127/61, heart rate 63, temperature 98.2, respirations 20. HEENT: Normocephalic. CHEST: Clear. HEART: S1, S2 regular. EXTREMITIES: Dressings are applied to the left forearm. LABORATORY DATA: Today's hemoglobin and hematocrit 10.9 and 31.9, white count and platelet count are within normal limits. SMA-7 today is within normal limits except for carbon dioxide of 110 and creatinine 0.7. Blood culture is negative for a few days. ASSESSMENT: 1. Status post incision and drainage of left forearm abscess. 2. Active intravenous drug. RECOMMENDATIONS: Continue current IV Zosyn. Continue Percocet, methadone, clonidine, and IV Protonix, as well as IV Toradol 50 mg every 6 hours p.r.n. for pain. Chau Ortiz MD cc: MD Luis (Delete if not dictated.)
--- NOTE | 2017-08-12 18:28 | CP.PCM.PN ---
Subjective - Date & Time of Evaluation Date of Evaluation: 08/12/17 Time of Evaluation: 09:00 - Subjective Subjective: discussed on rounds pain is improving repeat cultures and IVANIA neg cont IV rx for 7 days then PO for 7 days Objective - Vital Signs/Intake and Output Vital Signs (last 24 hours): Temp Pulse Resp BP Pulse Ox 98.2 F 63 20 127/61 98 08/12/17 08:13 08/12/17 08:13 08/12/17 08:13 08/12/17 08:13 08/12/17 08:13 Intake and Output: 08/12/17 08/12/17 06:59 18:59 Intake Total 650 Output Total 400 Balance 250 - Medications Medications: Current Medications Clonidine HCl (Catapres) 0.1 mg PO BID PRN PRN Reason: Symptoms of alcohol withdrawl Last Admin: 08/11/17 09:18 Dose: 0.1 mg Piperacillin Sod/Tazobactam Sod (Zosyn 3.375 Gm Iv Premix) 3.375 gm in 50 mls @ 100 mls/hr IVPB Q6H AURELIANO PRN Reason: Protocol Last Admin: 08/12/17 15:00 Dose: 100 mls/hr Ketorolac Tromethamine (Toradol) 15 mg IVP Q6 PRN PRN Reason: Pain, Mild (1-3) Ketorolac Tromethamine (Toradol) 30 mg IVP Q6 PRN PRN Reason: Pain, moderate (4-7) Methadone HCl (Methadone) 5 mg PO ONCE ONE Stop: 08/13/17 10:01 Oxycodone/Acetaminophen (Percocet 5/325 Mg Tab) 1 tab PO Q6H PRN PRN Reason: Pain, severe (8-10) Stop: 08/15/17 13:28 Last Admin: 08/12/17 14:57 Dose: 1 tab Pantoprazole Sodium (Protonix Inj) 40 mg IVP DAILY [facility] Last Admin: 08/12/17 09:31 Dose: 40 mg Saccharomyces Boulardii (Florastor) 250 mg PO BID [facility] Last Admin: 08/12/17 17:55 Dose: 250 mg - Labs Labs: 08/12/17 07:59 08/12/17 07:59 PT 13.9 SECONDS (9.7-12.2) H 08/09/17 01:04 INR 1.2 05/01/18 01:04 APTT 36 SECONDS (21-34) H 08/09/17 01:04 Assessment and Plan (1) Abscess Status: Acute (2) Cellulitis Status: Acute (3) Intravenous drug abuse Status: Acute
[2017-08-13] MEDS: Piperacill/Tazo 3.375gm in Dex 3.375 GM/50 ML BAG IVPB SCH ×2 (03:16→09:30)
[2017-08-13] MEDS: Oxycodone/Acetaminophen 5/325 mg Tab PO PRN (03:56)
[2017-08-13 08:41] LABS: BASO # 0.1 K/uL (0.0-0.2); BASO % 1.3 % (0.0-2.0); EOS # 0.1 K/uL (0.0-0.7); EOS % 2.6 % (0.0-4.0); HEMOGLOBIN 10.5 g/dL (12.0-18.0); LYMPH # 1.3 K/uL (1.0-4.3); LYMPH % 22.5 % (20.0-40.0); MEAN CELL VOLUME 81.7 fL (80.0-94.0); MEAN CORPUSCULAR HEMOGLOBIN 27.7 pg (27.0-31.0); MEAN CORPUSCULAR HGB CONC 33.9 g/dL (33.0-37.0); MEAN PLATELET VOLUME 8.7 fL (7.2-11.7); MONO # 0.4 K/uL (0.0-0.8); MONO % 6.5 % (0.0-10.0); NEUT # 3.8 K/uL (1.8-7.0); NEUT % 67.1 % (50.0-75.0); NRBC % 0.1 % (0.0-2.0); RBC 3.78 Mil/uL (4.40-5.90); RED CELL DISTRIBUTION WIDTH 14.2 % (11.5-14.5); WHITE BLOOD COUNT 5.6 K/uL (4.8-10.8)
[2017-08-13 08:53] LABS: ALB/GLOB RATIO 0.8 (1.0-2.1); ALBUMIN 3.1 g/dL (3.5-5.0); ALT/SGPT 25 U/L (21-72); AST/SGOT 28 U/L (17-59); BLOOD UREA NITROGEN 9 mg/dL (9-20); CALCIUM 8.6 mg/dl (8.6-10.4); GFR AFRICAN-AMERICAN > 60; GFR NON-AFRICAN AMERICAN > 60
[2017-08-13 09:37] VITALS: BP 128/63; PULSE 59; TEMP 98.5; O2SAT 100
[2017-08-13] MEDS: Saccharomyces Boulardi 250 mg Cap PO SCH (10:01)
--- NOTE | 2017-08-13 10:48 | CP.PCM.DIS ---
<Zenaida Boss - Last Filed: 08/13/17 10:45> Provider - Provider Date of Admission: 08/09/17 03:09 Attending physician: Carlos Welsh MD Consults: Hand Surgery (Dr. Acosta) ID ( Dr. Motley) Cardio (Dr. Ortiz) Time Spent in preparation of Discharge (in minutes): 40 Diagnosis - Discharge Diagnosis (1) Left arm cellulitis Status: Acute (2) Heroin use disorder, severe Status: Chronic (3) IV drug abuse Status: Chronic (4) Murmur Status: Acute Hospital Course - Lab Results Lab Results: Micro Results 08/09/17 00:53 Blood Blood Culture - Preliminary NO GROWTH AFTER 4 DAYS 08/09/17 00:53 Blood Blood Culture - Preliminary NO GROWTH AFTER 4 DAYS 08/09/17 17:09 Abscess - Arm-Left Gram Stain - Final 08/09/17 17:09 Abscess - Arm-Left Wound Culture - Final Strep Agalactiae Group B 08/09/17 17:07 Abscess - Arm-Left Gram Stain - Final 08/09/17 17:07 Abscess - Arm-Left Wound Culture - Final Strep Agalactiae Group B 08/09/17 03:11 Arm - Left Gram Stain - Final 08/09/17 03:11 Arm - Left Wound Culture - Final Enterobacter Cloacae Ssp Cloac Strep Agalactiae Group B Most Recent Lab Values WBC 5.6 K/uL (4.8-10.8) 08/13/17 08:33 RBC 3.78 Mil/uL (4.40-5.90) L 08/13/17 08:33 Hgb 10.5 g/dL (12.0-18.0) L 08/13/17 08:33 Hct 30.9 % (35.0-51.0) L 08/13/17 08:33 MCV 81.7 fL (80.0-94.0) 08/13/17 08:33 MCH 27.7 pg (27.0-31.0) 08/13/17 08:33 MCHC 33.9 g/dL (33.0-37.0) 08/13/17 08:33 RDW 14.2 % (11.5-14.5) 08/13/17 08:33 Plt Count 300 K/uL (130-400) 08/13/17 08:33 MPV 8.7 fL (7.2-11.7) 08/13/17 08:33 Neut % (Auto) 67.1 % (50.0-75.0) 08/13/17 08:33 Lymph % (Auto) 22.5 % (20.0-40.0) 08/13/17 08:33 [place] % (Auto) 6.5 % (0.0-10.0) 08/13/17 08:33 Eos % (Auto) 2.6 % (0.0-4.0) 08/13/17 08:33 Baso % (Auto) 1.3 % (0.0-2.0) 08/13/17 08:33 Neut # (Auto) 3.8 K/uL (1.8-7.0) 08/13/17 08:33 Lymph # (Auto) 1.3 K/uL (1.0-4.3) 08/13/17 08:33 [place] # (Auto) 0.4 K/uL (0.0-0.8) 08/13/17 08:33 Eos # (Auto) 0.1 K/uL (0.0-0.7) 08/13/17 08:33 Baso # (Auto) 0.1 K/uL (0.0-0.2) 08/13/17 08:33 Neutrophils % (Manual) 84 % (50-75) H 08/10/17 13:55 Lymphocytes % (Manual) 12 % (20-40) L 08/10/17 13:55 Monocytes % (Manual) 4 % (0-10) 08/10/17 13:55 Platelet Estimate Normal (NORMAL) 08/10/17 13:55 Hypochromasia (manual) Slight 08/10/17 13:55 PT 13.9 SECONDS (9.7-12.2) H 08/09/17 01:04 INR 1.2 08/09/17 01:04 APTT 36 SECONDS (21-34) H 08/09/17 01:04 pO2 71 mm/Hg (30-55) H 08/09/17 01:06 VBG pH 7.44 (7.32-7.43) H 08/09/17 01:06 VBG pCO2 39 mmHg (40-60) L 08/09/17 01:06 VBG HCO3 26.6 mmol/L 08/09/17 01:06 VBG Total CO2 27.7 mmol/L (22-28) 08/09/17 01:06 VBG O2 Sat (Calc) 97.9 % (40-65) H 08/09/17 01:06 VBG Base Excess 2.3 mmol/L (0.0-2.0) H 08/09/17 01:06 VBG Potassium 3.6 mmol/L (3.6-5.2) 08/09/17 01:06 Sodium 135.0 mmol/l (132-148) 08/09/17 01:06 Chloride 104.0 mmol/L (98-107) 08/09/17 01:06 Glucose 129 mg/dl (75-110) H 08/09/17 01:06 Lactate 0.8 mmol/L (0.7-2.1) 08/09/17 01:06 Sodium 143 mmol/L (132-148) 08/13/17 08:33 Potassium 4.3 mmol/L (3.6-5.2) 08/13/17 08:33 Chloride 105 mmol/L (98-107) 08/13/17 08:33 Carbon Dioxide 28 mmol/L (22-30) 08/13/17 08:33 Anion Gap 13 (10-20) 08/13/17 08:33 BUN 9 mg/dL (9-20) 08/13/17 08:33 Creatinine 0.7 mg/dL (0.8-1.5) L 08/13/17 08:33 Est GFR ( Amer) > 60 08/13/17 08:33 Est GFR (Non-Af Amer) > 60 08/13/17 08:33 Random Glucose 83 mg/dL (75-110) 08/13/17 08:33 Hemoglobin A1c 4.3 % (4.2-6.5) 08/09/17 14:06 Calcium 8.6 mg/dl (8.6-10.4) 08/13/17 08:33 Phosphorus 4.1 mg/dL (2.5-4.5) 08/13/17 08:33 Magnesium 2.1 mg/dL (1.6-2.3) 08/13/17 08:33 Iron 12 ug/dL (49-181) L 08/09/17 14:06 TIBC 245 ug/dL (250-450) L 08/09/17 14:06 % Saturation 5 (20-55) L 08/09/17 14:06 Total Bilirubin 1.1 mg/dL (0.2-1.3) 08/13/17 08:33 AST 28 U/L (17-59) 08/13/17 08:33 ALT 25 U/L (21-72) 08/13/17 08:33 Alkaline Phosphatase 95 U/L (38-126) 08/13/17 08:33 Total Protein 6.9 g/dL (6.3-8.3) 08/13/17 08:33 Albumin 3.1 g/dL (3.5-5.0) L 08/13/17 08:33 Globulin 3.8 gm/dL (2.2-3.9) 08/13/17 08:33 Albumin/Globulin Ratio 0.8 (1.0-2.1) L 08/13/17 08:33 Vitamin B12 629 pg/mL (239-931) 08/09/17 14:06 Venous Blood Potassium 3.6 mmol/L (3.6-5.2) 08/09/17 01:06 Vancomycin Trough 5.3 ug/mL (5.0-10.0) 08/11/17 04:36 Urine Opiates Screen Positive (NEGATIVE) H 08/12/17 08:17 Urine Methadone Screen Positive (NEGATIVE) H 08/12/17 08:17 Ur Barbiturates Screen Negative (NEGATIVE) 08/12/17 08:17 Ur Phencyclidine Scrn Negative (NEGATIVE) 08/12/17 08:17 Ur Amphetamines Screen Negative (NEGATIVE) 08/12/17 08:17 U Benzodiazepines Scrn Negative (NEGATIVE) 08/12/17 08:17 U Oth Cocaine Metabols Negative (NEGATIVE) 08/12/17 08:17 U Cannabinoids Screen Negative (NEGATIVE) 08/12/17 08:17 Alcohol, Quantitative < 10 mg/dl (0-10) 08/09/17 03:46 RPR Nonreactive (NONREACTIVE) 08/09/17 14:06 Hepatitis A IgM Ab Negative (NEGATIVE) 08/09/17 14:06 Hep Bs Antigen Negative (NEGATIVE) 08/09/17 14:06 Hep B Core IgM Ab Negative (NEGATIVE) 08/09/17 14:06 Hepatitis C Antibody Negative (NEGATIVE) 08/09/17 14:06 HIV 1&2 Antibody Screen Negative (NEGATIVE) 08/09/17 14:06 - Hospital Course Hospital Course: HPI: "This patient is a 26yo M w/ a PMhx of IVDA for 5 years, 10-15 bags, smokes 1/2 pack of cigarettes a day, who is coming in for a 5 day history of fever/chills, and LUES swelling/pain/induration. Patient states he injects heroin into the left anterior forearm where he has pain and swelling, and has had this problem 4-5 times in the past before. He denies cocaine use or EtOH abuse. 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 He admits to fevers/chills. Denies hx of heart murmur. Currently denies changes in vision, HEWITT, SOB, abdominal pain, N/V/D, dysuria/freq/urg or lower extremity pain /swelling." Patient admitted for LUES abscess/ cellulitis. Antibiotics Vanco and Zosyn started. Dr. Acosta (hand surgery) consulted. Upper extremity CT showed Limitations: Suboptimal positioning. Streak artifact - mild. Bones/joints: No acute fracture. No dislocation. No definite cortical destruction. Soft tissues: Mild skin thickening. Moderate to extensive stranding within subcutaneous tissues. 5.7 x 3.1 x 8.1 cm peripherally enhancing fluid collection within subcutaneous tissues along proximal forearm contiguous with or extending into adjacent musculature. IMPRESSION: 1. Findings compatible with cellulitis and abscess. Patient taken to OR for I&D on 08/09/17. Dr. Motley saw patient who recommended continuing IV antibiotics. HIV, RPR and Hepatitis panel checked which were negative. Blood cultures and wound cultures take. Left hand wound culture was + for S. Agalactiae. Blood cultures negative after 4 days. Patient encouraged to stay on IV antibiotics for 7 days, but said he needed to go home to take care of his daughter. Patient signed out AMA and understood the risks that his infection may not be fully treated since he was not completing the course of IV antibiotics. Patient was explained that this could lead to blood infection which could lead to sepsis and . Patient signed paper to sign out AMA. Heart murmur heard on exam which patient knows no history of. Patient is at high risk for endocarditis due to IV drug abuse. Dr. Ortiz (cardio) consulted who recommended IVANIA. Echocardiogram (08/11/17)showed no vavular vegetation, please refer to EMR for complete impression. IVANIA was negative. For heroin abuse patient was started on a methadone taper. Patient plans on going to Detox at [facility] Located at [address] [place] [address] in [place], [place], where he has gone before for detox. Patient signed out AMA on 08/13/17 and understood the risks that his infection may not be fully treated since he was not completing the course of IV antibiotics. It was explained to patient that this could lead to blood infection which could lead to sepsis and . Patient signed paperwork to sign out AMA. Discharge Exam - Head Exam Head Exam: ATRAUMATIC, NORMAL INSPECTION - Additional Findings Additional findings: - Constitutional Appears: Well, No Acute Distress - Head Exam Head Exam: ATRAUMATIC, NORMAL INSPECTION - Eye Exam Eye Exam: EOMI, Normal appearance - ENT Exam ENT Exam: Mucous Membranes Moist - Respiratory Exam Respiratory Exam: Clear to Ausculation Bilateral, NORMAL BREATHING PATTERN. absent: Prolonged Expiratory Phase, Rhonchi, Wheezes, Respiratory Distress, Stridor - Cardiovascular Exam Cardiovascular Exam: REGULAR RHYTHM, +S1, +S2, Murmur Additional comments: Ejection systolic at left sternal border - GI/Abdominal Exam GI & Abdominal Exam: Soft, Normal Bowel Sounds. absent: Distended, Firm, Guarding, Rigid, Tenderness - Extremities Exam Extremities Exam: Normal Inspection. absent: Calf Tenderness, Pedal Edema LUE dressing d/c/i - Neurological Exam Neurological Exam: Alert, Awake, Oriented x3 - Psychiatric Exam Psychiatric exam: Normal Affect, Normal Mood - Skin Skin Exam: Normal Color LUE dressing d/c/i Discharge Plan - Follow Up Plan Condition: FAIR Disposition: AGAINST MEDICAL ADVICE Instructions: Drug Abuse and Drug Addiction (DC), Cellulitis (DC), Cellulitis ( GEN), Abscess (GEN) Additional Instructions: Follow up with Dr. acosta for instructions on dressing changes. Keep wound dry until seen by dr. acosta. Referrals: Chantel Acosta MD [Staff Provider] - <Carlos Welsh - Last Filed: 08/13/17 17:46> Provider - Provider Date of Admission: 08/09/17 03:09 Attending physician: Carlos Welsh MD Hospital Course - Lab Results Lab Results: Micro Results 08/09/17 00:53 Blood Blood Culture - Preliminary NO GROWTH AFTER 4 DAYS 08/09/17 00:53 Blood Blood Culture - Preliminary NO GROWTH AFTER 4 DAYS 08/09/17 17:09 Abscess - Arm-Left Gram Stain - Final 08/09/17 17:09 Abscess - Arm-Left Wound Culture - Final Strep Agalactiae Group B 08/09/17 17:07 Abscess - Arm-Left Gram Stain - Final 08/09/17 17:07 Abscess - Arm-Left Wound Culture - Final Strep Agalactiae Group B 08/09/17 03:11 Arm - Left Gram Stain - Final 08/09/17 03:11 Arm - Left Wound Culture - Final Enterobacter Cloacae Ssp Cloac Strep Agalactiae Group B Most Recent Lab Values WBC 5.6 K/uL (4.8-10.8) 08/13/17 08:33 RBC 3.78 Mil/uL (4.40-5.90) L 08/13/17 08:33 Hgb 10.5 g/dL (12.0-18.0) L 08/13/17 08:33 Hct 30.9 % (35.0-51.0) L 08/13/17 08:33 MCV 81.7 fL (80.0-94.0) 08/13/17 08:33 MCH 27.7 pg (27.0-31.0) 08/13/17 08:33 MCHC 33.9 g/dL (33.0-37.0) 08/13/17 08:33 RDW 14.2 % (11.5-14.5) 08/13/17 08:33 Plt Count 300 K/uL (130-400) 08/13/17 08:33 MPV 8.7 fL (7.2-11.7) 08/13/17 08:33 Neut % (Auto) 67.1 % (50.0-75.0) 08/13/17 08:33 Lymph % (Auto) 22.5 % (20.0-40.0) 08/13/17 08:33 [place] % (Auto) 6.5 % (0.0-10.0) 08/13/17 08:33 Eos % (Auto) 2.6 % (0.0-4.0) 08/13/17 08:33 Baso % (Auto) 1.3 % (0.0-2.0) 08/13/17 08:33 Neut # (Auto) 3.8 K/uL (1.8-7.0) 08/13/17 08:33 Lymph # (Auto) 1.3 K/uL (1.0-4.3) 08/13/17 08:33 [place] # (Auto) 0.4 K/uL (0.0-0.8) 08/13/17 08:33 Eos # (Auto) 0.1 K/uL (0.0-0.7) 08/13/17 08:33 Baso # (Auto) 0.1 K/uL (0.0-0.2) 08/13/17 08:33 Neutrophils % (Manual) 84 % (50-75) H 08/10/17 13:55 Lymphocytes % (Manual) 12 % (20-40) L 08/10/17 13:55 Monocytes % (Manual) 4 % (0-10) 08/10/17 13:55 Platelet Estimate Normal (NORMAL) 08/10/17 13:55 Hypochromasia (manual) Slight 08/10/17 13:55 PT 13.9 SECONDS (9.7-12.2) H 08/09/17 01:04 INR 1.2 08/09/17 01:04 APTT 36 SECONDS (21-34) H 08/09/17 01:04 pO2 71 mm/Hg (30-55) H 08/09/17 01:06 VBG pH 7.44 (7.32-7.43) H 08/09/17 01:06 VBG pCO2 39 mmHg (40-60) L 08/09/17 01:06 VBG HCO3 26.6 mmol/L 08/09/17 01:06 VBG Total CO2 27.7 mmol/L (22-28) 08/09/17 01:06 VBG O2 Sat (Calc) 97.9 % (40-65) H 08/09/17 01:06 VBG Base Excess 2.3 mmol/L (0.0-2.0) H 08/09/17 01:06 VBG Potassium 3.6 mmol/L (3.6-5.2) 08/09/17 01:06 Sodium 135.0 mmol/l (132-148) 08/09/17 01:06 Chloride 104.0 mmol/L (98-107) 08/09/17 01:06 Glucose 129 mg/dl (75-110) H 08/09/17 01:06 Lactate 0.8 mmol/L (0.7-2.1) 08/09/17 01:06 Sodium 143 mmol/L (132-148) 08/13/17 08:33 Potassium 4.3 mmol/L (3.6-5.2) 08/13/17 08:33 Chloride 105 mmol/L (98-107) 08/13/17 08:33 Carbon Dioxide 28 mmol/L (22-30) 08/13/17 08:33 Anion Gap 13 (10-20) 08/13/17 08:33 BUN 9 mg/dL (9-20) 08/13/17 08:33 Creatinine 0.7 mg/dL (0.8-1.5) L 08/13/17 08:33 Est GFR ( Amer) > 60 08/13/17 08:33 Est GFR (Non-Af Amer) > 60 08/13/17 08:33 Random Glucose 83 mg/dL (75-110) 08/13/17 08:33 Hemoglobin A1c 4.3 % (4.2-6.5) 08/09/17 14:06 Calcium 8.6 mg/dl (8.6-10.4) 08/13/17 08:33 Phosphorus 4.1 mg/dL (2.5-4.5) 08/13/17 08:33 Magnesium 2.1 mg/dL (1.6-2.3) 08/13/17 08:33 Iron 12 ug/dL (49-181) L 08/09/17 14:06 TIBC 245 ug/dL (250-450) L 08/09/17 14:06 % Saturation 5 (20-55) L 08/09/17 14:06 Total Bilirubin 1.1 mg/dL (0.2-1.3) 08/13/17 08:33 AST 28 U/L (17-59) 08/13/17 08:33 ALT 25 U/L (21-72) 08/13/17 08:33 Alkaline Phosphatase 95 U/L (38-126) 08/13/17 08:33 Total Protein 6.9 g/dL (6.3-8.3) 08/13/17 08:33 Albumin 3.1 g/dL (3.5-5.0) L 08/13/17 08:33 Globulin 3.8 gm/dL (2.2-3.9) 08/13/17 08:33 Albumin/Globulin Ratio 0.8 (1.0-2.1) L 08/13/17 08:33 Vitamin B12 629 pg/mL (239-931) 08/09/17 14:06 Venous Blood Potassium 3.6 mmol/L (3.6-5.2) 08/09/17 01:06 Vancomycin Trough 5.3 ug/mL (5.0-10.0) 08/11/17 04:36 Urine Opiates Screen Positive (NEGATIVE) H 08/12/17 08:17 Urine Methadone Screen Positive (NEGATIVE) H 08/12/17 08:17 Ur Barbiturates Screen Negative (NEGATIVE) 08/12/17 08:17 Ur Phencyclidine Scrn Negative (NEGATIVE) 08/12/17 08:17 Ur Amphetamines Screen Negative (NEGATIVE) 08/12/17 08:17 U Benzodiazepines Scrn Negative (NEGATIVE) 08/12/17 08:17 U Oth Cocaine Metabols Negative (NEGATIVE) 08/12/17 08:17 U Cannabinoids Screen Negative (NEGATIVE) 08/12/17 08:17 Alcohol, Quantitative < 10 mg/dl (0-10) 08/09/17 03:46 RPR Nonreactive (NONREACTIVE) 08/09/17 14:06 Hepatitis A IgM Ab Negative (NEGATIVE) 08/09/17 14:06 Hep Bs Antigen Negative (NEGATIVE) 08/09/17 14:06 Hep B Core IgM Ab Negative (NEGATIVE) 08/09/17 14:06 Hepatitis C Antibody Negative (NEGATIVE) 08/09/17 14:06 HIV 1&2 Antibody Screen Negative (NEGATIVE) 08/09/17 14:06 Attending/Attestation - Attestation I have personally seen and examined this patient.: Yes I have fully participated in the care of the patient.: Yes I have reviewed all pertinent clinical information, including history, physical exam and plan: Yes Notes (Text): 08/13/17 17:45 Patient was also provided with Dr. Acosta's contact information as well as prescription for Levaquin 750 mg PO 1x/day for the next 10 days. Carlos Welsh D.O.
== END 2017-08-13 10:15 | disposition left against medical advice (07) | DRG 277 ==
LOC: C.ER 23:22 → C.3T 08-09 03:09
PROVIDERS: ADMIT Family Medicine; ATTEND Family Medicine
PROC: 0J9F3ZZ Drainage of Left Upper Arm Subcutaneous Tissue and Fascia, Percutaneous Approach (ICD-10-PCS; principal; 2017-08-09 15:00)
PROC: B246ZZ4 Ultrasonography of Right and Left Heart, Transesophageal (ICD-10-PCS; 2017-08-11)
DX: L03.114 Cellulitis of left upper limb (principal); F11.10 Opioid abuse, uncomplicated; R01.1 Cardiac murmur, unspecified; L02.414 Cutaneous abscess of left upper limb; B95.4 Other streptococcus as the cause of diseases classified elsewhere; B96.89 Other specified bacterial agents as the cause of diseases classified elsewhere; F17.210 Nicotine dependence, cigarettes, uncomplicated; D57.3 Sickle-cell trait; Z83.2 Family history of diseases of the blood and blood-forming organs and certain disorders involving the immune mechanism; Z91.19 Patient's noncompliance with other medical treatment and regimen; R79.89 Other specified abnormal findings of blood chemistry

== ENCOUNTER 2018-01-10 16:27 | Emergency (ER) | payer MEDICAID, OTHER ==
[2018-01-10 16:28] VITALS: BMI 22.4
[2018-01-10 16:33] VITALS: BP 149/86; PULSE 74; RESP 20; TEMP 98.7; O2SAT 98
[2018-01-10 17:51] LABS: SQUAMOUS EPITHIAL < 1 /hpf (0-5); URINE BACTERIA RARE (<OCC); URINE BILIRUBIN NEGATIVE (NEGATIVE); URINE BLOOD NEGATIVE (NEGATIVE); URINE CLARITY Clear (Clear); URINE COLOR Yellow (YELLOW); URINE GLUCOSE (UA) NORMAL (Normal); URINE LEUKOCYTE ESTERASE NEG Leu/uL (Negative); URINE PROTEIN NEGATIVE (NEGATIVE); URINE UROBILINOGEN NORMAL mg/dL (0.2-1.0)
--- NOTE | 2018-01-10 17:53 | C.PDOC ---
Time Seen by Provider: 01/10/18 16:52 Chief Complaint (Nursing): Abdominal Pain Past Medical History Vital Signs: Last Vital Signs Temp 98.7 F 01/10/18 16:30 Pulse 74 01/10/18 16:30 Resp 20 01/10/18 16:30 BP 149/86 01/10/18 16:30 Pulse Ox 98 01/10/18 16:30 - [facility] Procedures DRAINAGE OF L UP ARM SUBCU/FASCIA, PERC APPROACH (08/09/17) DRAINAGE OF R LOW ARM SUBCU/FASCIA, OPEN APPROACH, DIAGN (06/12/17) ULTRASONOGRAPHY OF RIGHT AND LEFT HEART, TRANSESOPHAGEAL (08/09/17) - Social History Hx Alcohol Use: No Hx Substance Use: Yes - Immunization History Hx Tetanus Toxoid Vaccination: No Hx Influenza Vaccination: No Hx Pneumococcal Vaccination: No ED Course And Treatment O2 Sat by Pulse Oximetry: 98 Disposition - Disposition
--- NOTE | 2018-01-10 17:54 | C.PDOC ---
History Of Present Illness 27 y/o male, whose PMHx includes IV drug abuse, presents to the ED with c/o left-sided back pain for the past 2 weeks. Patient suspects symptoms are caused by problems in his kidneys. Patient is also requesting heroin detox. He admits to using 10 bags intravenously yesterday. Patient denies fever, chills, vomiting, diarrhea, or trauma/falls. Time Seen by Provider: 01/10/18 16:52 Chief Complaint (Nursing): Abdominal Pain History Per: Patient History/Exam Limitations: no limitations Onset/Duration Of Symptoms: Hrs, Other (2 week ) Current Symptoms Are (Timing): Still Present Radiation Of Pain To:: Back Quality Of Discomfort: "Pain" Associated Symptoms: denies: Fever, Chills, Vomiting, Diarrhea Additional History Per: Patient Past Medical History Reviewed: Historical Data, Nursing Documentation, Vital Signs Vital Signs: Last Vital Signs Temp 98.7 F 01/10/18 16:30 Pulse 74 01/10/18 16:30 Resp 20 01/10/18 16:30 BP 149/86 01/10/18 16:30 Pulse Ox 98 01/10/18 16:30 - Medical History PMH: No Chronic Diseases Surgical History: No Surg Hx - [facility] Procedures DRAINAGE OF L UP ARM SUBCU/FASCIA, PERC APPROACH (08/09/17) DRAINAGE OF R LOW ARM SUBCU/FASCIA, OPEN APPROACH, DIAGN (06/12/17) ULTRASONOGRAPHY OF RIGHT AND LEFT HEART, TRANSESOPHAGEAL (08/09/17) Family History: States: Unknown Family Hx - Social History Hx Alcohol Use: No Hx Substance Use: Yes - Immunization History Hx Tetanus Toxoid Vaccination: No Hx Influenza Vaccination: No Hx Pneumococcal Vaccination: No Review Of Systems Constitutional: Negative for: Fever, Chills Gastrointestinal: Negative for: Vomiting, Diarrhea Musculoskeletal: Positive for: Back Pain (left-sided ) Physical Exam - Physical Exam Appears: Non-toxic, No Acute Distress Skin: Normal Color, Warm, Dry Head: Atraumatic, Normacephalic Eye(s): bilateral: Normal Inspection Oral Mucosa: Moist Neck: Supple Chest: Symmetrical, No Deformity, No Tenderness Cardiovascular: Rhythm Regular, No Murmur Respiratory: Normal Breath Sounds, No Rales, No Rhonchi, No Wheezing Back: No Vertebral Tenderness, No Paraspinal Tenderness Extremity: Normal ROM, Capillary Refill (less than 2 seconds ) Neurological/Psych: Oriented x3, Normal Speech, Normal Cognition ED Course And Treatment O2 Sat by Pulse Oximetry: 98 (on RA) Pulse Ox Interpretation: Normal Medical Decision Making Medical Decision Making: Progress: Bloodwork, urinalysis, drug screen ordered and reviewed. Flexeril PO and Motrin PO given. 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 Disposition - Disposition Referrals: [facility] [Outside] [facility] [Outside] [facility] [Outside] Disposition: HOME/ ROUTINE Disposition Time: 19:02 Condition: GOOD Prescriptions: Acetaminophen [Tylenol 325mg tab] 650 mg PO Q4 #20 tab Cyclobenzaprine [Cyclobenzaprine HCl] 10 mg PO Q8 #15 tab Instructions: Low Back Pain (DC), Opioid Use Disorder Forms: [facility] (Kiswahili) - Clinical Impression Clinical Impression: Low back pain - Scribe Statement The provider has reviewed the documentation as recorded by the Scribe (Jeanine Welsh) Provider Attestation: All medical record entries made by the Scribe were at my direction and personally dictated by me. I have reviewed the chart and agree that the record accurately reflects my personal performance of the history, physical exam, medical decision making, and the department course for this patient. I have also personally directed, reviewed, and agree with the discharge instructions and disposition.
[2018-01-10 18:37] LABS: BARBITURATES, UR NEGATIVE (NEGATIVE); BENZODIAZEPINES, UR NEGATIVE (NEGATIVE); PHENCYCLIDINE, UR NEGATIVE (NEGATIVE)
[2018-01-10 18:44] LABS: OPIATES, UR POSITIVE (NEGATIVE)
== END 2018-01-10 19:02 | disposition home or self-care (01) ==
LOC: C.ER 16:27
DX: M54.5 Low back pain (principal)